=== PATIENT | female | born 1945 | race Caucasian/White ===

== ENCOUNTER 2016-08-22 20:22 | Emergency (ER) | payer MEDICARE, OTHER ==
[~2016-08-22 20:22] MED LIST: ALBUTEROL SULF8.5 GM INH; AMITRIPTYLINE H50 MG PO; AMITRIPTYLINE100 MG PO; ASPIRIN EC81 MG PO; CLINDAMYCIN HC150 MG PO; CRESTOR10 MG PO; FOSAMAX35 MG PO; HYDROCHLOROTH12.5 MG PO; HYDROCHLOROTHIA25 MG PO; HYDROCODON-ACE1 EAC8 PO; KETOPROFEN50 MG PO; LEVOTHYROXINE137 MCG PO; LEVOTHYROXINE150 MCG PO; LIPITOR10 MG GT; LIPITOR10 MG PO; LISINOPRIL-HCT1 EACH PO; METOPROLOL SUCC25 MG PO; PAROXETINE HCL10 MG PO; PAXIL20 MG PO; POTASSIUM CHLO10 MEQ PO; PROVENTIL HFA6.7 GM INH; TERBINAFINE15 GM TOP; VITAMIN D-32000 UNI1 PO; VITAMIN D5000 UNIT PO
== END 2016-08-22 21:00 | disposition left against medical advice (07) ==
LOC: ED 20:22
DX: M25.539 Pain in unspecified wrist (principal); Z53.21 Procedure and treatment not carried out due to patient leaving prior to being seen by health care provider

== ENCOUNTER 2017-04-02 13:39 | Emergency (ER) | payer MEDICARE, OTHER ==
[~2017-04-02] VITALS: Ht 166.4 cm; Wt 68.0 kg
[2017-04-02] MEDS ORDERED: FLONASE ALLERG9.9 ML NAS (14:58)
[2017-04-02] MEDS ORDERED: ULTRAM50 MG PO (14:58)
== END 2017-04-02 15:07 | disposition home or self-care (01) ==
LOC: ED 13:39
DX: J32.9 Chronic sinusitis, unspecified (principal); S00.83XA Contusion of other part of head, initial encounter; S00.03XA Contusion of scalp, initial encounter; I10 Essential (primary) hypertension; E03.9 Hypothyroidism, unspecified; E78.00 Pure hypercholesterolemia, unspecified; E11.9 Type 2 diabetes mellitus without complications; Z87.891 Personal history of nicotine dependence; Z88.0 Allergy status to penicillin; Z88.8 Allergy status to other drugs, medicaments and biological substances; Z79.82 Long term (current) use of aspirin; Z79.899 Other long term (current) drug therapy; W01.10XA Fall on same level from slipping, tripping and stumbling with subsequent striking against unspecified object, initial encounter
CPT/HCPCS: 70450; 99284

== ENCOUNTER 2017-10-17 18:31 | Emergency (ER) | payer MEDICARE, OTHER ==
[~2017-10-17] VITALS: Ht 166.4 cm; Wt 68.0 kg
--- OUTSIDE RECORDS SUMMARY | ~2017-10-17 | XMS | Clinical Summary ---
Demographics + + + | Address | [address] | | | [place] [address] | + + + | Home Phone | | + + + | Preferred Language | Unknown | + + + | Marital Status | | + + + | Buddhism Affiliation | Unknown | + + + | Race | Unknown | + + + | Ethnic Group | Unknown | + + + Author + + + | Author | [facility] | | | and [place] | + + + | Organization | [facility] | | | and [place] | + + + | Address | Unknown | + + + | Phone | Unavailable | + + + Support + + + + + | Name | Relationship | Address | Phone | + + + + + | Tres Devlin | ECON | [address] | | | | | [place], [place] | | | | | [address] | | + + + + + | Kat Garcia | ECON | [address] | | | | | [place], [place] | | | | | [address] | | + + + + + Care Team Providers + +------+ + | Care Nurse Assistant Name | Role | Phone | + +------+ + | Silver Joyce | PP | | | MD | | | + +------+ + Allergies + + + + + + | Active Allergy | Reactions | Severity | Noted | Comments | | | | | Date | | + + + + + + | Bupropion | | | 03/09/19 | | | | | | 18 | | + + + + + + | Metformin | | | 03/09/19 | | | | | | 18 | | + + + + + + | Montelukast | | | 03/09/19 | | | | | | 18 | | + + + + + + | Penicillins | | | 03/09/19 | | | | | | 18 | | + + + + + + | Varenicline | | | 03/09/19 | | | | | | 18 | | + + + + + + Current Medications + + +-------+---------+------+------+-------+ | Prescription | Sig. | Disp. | Refills | Star | End | Statu | | | | | | t | Date | s | | | | | | Date | | | + + +-------+---------+------+------+-------+ | albuterol | Inhale 2 puffs into | | | | | Activ | | (PROVENTIL) 90 | the lungs every 4 | | | | | e | | mcg/puff inhaler (ED | hours as needed for | | | | | | | prepack) | Wheezing. | | | | | | + + +-------+---------+------+------+-------+ | alendronate | Take 35 mg by mouth | | | | | Activ | | (FOSAMAX) 35 mg | every 7 days. | | | | | e | | tablet | | | | | | | + + +-------+---------+------+------+-------+ | amitriptyline | Take 100 mg by mouth | | | | | Activ | | (ELAVIL) 100 MG | nightly. | | | | | e | | tablet | | | | | | | + + +-------+---------+------+------+-------+ | aspirin 81 mg EC | Take 81 mg by mouth | | | | | Activ | | tablet | Daily. | | | | | e | + + +-------+---------+------+------+-------+ | rosuvastatin | Take 10 mg by mouth | | | | | Activ | | (CRESTOR) 10 mg | nightly. | | | | | e | | tablet | | | | | | | + + +-------+---------+------+------+-------+ | glipiZIDE | Take 5 mg by mouth 2 | | | | | Activ | | (GLUCOTROL) 5 mg | times daily (before | | | | | e | | tablet | meals). | | | | | | + + +-------+---------+------+------+-------+ | | Take by mouth. | | | | | Activ | | Hydrocodone-Acetamin | | | | | | e | | ophen 2.5-325 MG | | | | | | | | TABS | | | | | | | + + +-------+---------+------+------+-------+ | ketoconazole | Apply topically | | | | | Activ | | (NIZORAL) 2% cream | Daily. | | | | | e | + + +-------+---------+------+------+-------+ | potassium chloride | Take 10 mEq by mouth | | | | | Activ | | (KLOR-CON) 10 mEq | Daily. | | | | | e | | CR tablet | | | | | | | + + +-------+---------+------+------+-------+ | levothyroxine | Take 137 mcg by | | | | | Activ | | (SYNTHROID) 137 MCG | mouth every morning | | | | | e | | tablet | (before breakfast). | | | | | | + + +-------+---------+------+------+-------+ | | Take 1 tablet by | | | | | Activ | | lisinopril-hydrochlo | mouth Daily. | | | | | e | | rothiazide | | | | | | | | (PRINZIDE,ZESTORETIC | | | | | | | | ) 20-12.5 MG per | | | | | | | | tablet | | | | | | | + + +-------+---------+------+------+-------+ | PARoxetine (PAXIL) | Take 10 mg by mouth | | | | | Activ | | 10 mg tablet | every morning. | | | | | e | + + +-------+---------+------+------+-------+ | metoprolol | Take 25 mg by mouth | | | | | Activ | | succinate (TOPROL | Daily. | | | | | e | | XL) 25 mg 24 hr | | | | | | | | tablet | | | | | | | + + +-------+---------+------+------+-------+ | Cholecalciferol | Take by mouth | | | | | Activ | | (VITAMIN D-3) 5000 | Daily. | | | | | e | | units CAPS | | | | | | | + + +-------+---------+------+------+-------+ Active Problems + + + | Problem | Noted Date | + + + | Hypertension | 03/09/2017 | + + + | Diabetes (HCC) | 03/09/2017 | + + + | Hyperlipidemia | 03/09/2017 | + + + | Hypothyroid | 03/09/2017 | + + + | Asthma | 03/09/2017 | + + + | Osteoporosis | 03/09/2017 | + + + | Vitamin D deficiency | 03/09/2017 | + + + | Hypokalemia | 03/09/2017 | + + + Family History + + +------+ + | Medical History | Relation | Name | Comments | + + +------+ + | Heart attack | Father | | | + + +------+ + + +------+ [...] + +------+ + + Social History + +-------+ +--------+ + | Tobacco Use | Types | Packs/Day | Years | Date | | | | | Used | | + +-------+ +--------+ + | Former Smoker | | | 30 | 1984 - 09/24/2014 | + +-------+ +--------+ + + +---+---+---+ | Smokeless Tobacco: | | | | | Never Used | | | | + +---+---+---+ + + + | Sex Assigned at | Date Recorded | | | | + + + | Not on file | | + + + Last Filed Vital Signs + + + + | Vital Sign | Reading | Time Taken | + + + + | Blood Pressure | 152/78 | 03/11/2017825 PST | + + + + | Pulse | 74 | 03/11/2017825 PST | + + + + | Temperature | - | - | + + + + | Respiratory Rate | 16 | 03/11/2017825 PST | + + + + | Oxygen Saturation | - | - | + + + + | Inhaled Oxygen | - | - | | Concentration | | | + + + + | Weight | 67.6 kg (149 lb) | 03/11/2017825 PST | + + + + | Height | 165.1 cm (5' 5") | 03/11/2017825 PST | + + + + | Body Mass Index | 24.79 | 03/11/2017825 PST | + + + + Plan of Treatment + + + + + | Health Maintenance | Due Date | Last Done | Comments | + + + + + | Hepatitis C | | | | | Screening | 6 | | | + + + + + | Diabetic Eye Exam | | | | | (Bi-Annually) | 4 | | | + + + + + | Diabetic Foot Exam | | | | | | 4 | | | + + + + + | Hemoglobin A1c Q3 | | | | | Months | 4 | | | + + + + + | Vaccine: | | | | | Dtap/Tdap/Td (1 - | 5 | | | | Tdap) | | | | + + + + + | BREAST CANCER | | | | | SCREENING (MAMM Q2 | 6 | | | | YEARS 50-74) | | | | + + + [...] | | | | | (#1) | 8 | | | + + + + + Results Not on filefrom Last 3 Months Insurance + +--------+ +--------+ +---------+ | Payer | Benefi | Subscriber | Type | Phone | Address | | | t Plan | ID | | | | | | / | | | | | | | Group | | | | | + +--------+ +--------+ +---------+ | MEDICARE | MEDICA | [id number] | Medica | [phone] | | | | RE | | re | [phone] | | | | PART A | | | | | | | AND B | | | | | + +--------+ +--------+ +---------+ | | TRICAR | [id number] | Indemn | [phone] | | | | E FOR | | ity | [phone] | | | | LIFE | | | | | + +--------+ +--------+ +---------+ + +--------+ +--------+ + + | Guarantor Name | Accoun | Relation to | Date | Phone | Billing Address | | | t Type | Patient | of | | | | | | | | | | + +--------+ +--------+ + + | CHELSEY DEVLIN | Person | Self [birth year] Home: | [address] | | | al/Fam | | 1946 | [phone] | [place] [address] | | | [place] | | | [phone] | | + +--------+ +--------+ + +
--- OUTSIDE RECORDS SUMMARY | ~2017-10-17 | XMS | Clinical Summary ---
Demographics + + + | Address | [address] | | | [place] [address] | + + + | Home Phone | | + + + | Preferred Language | Unknown | + + + | Marital Status | | + + + | Episcopal Affiliation | Unknown | + + + | Race | Unknown | + + + | Ethnic Group | Unknown | + + + Author + + + | Author | [facility] | + + + | Organization | [facility] | + + + | Address | Unknown | + + + | Phone | Unavailable | + + + Support + + + + + | Name | Relationship | Address | Phone | + + + + + | Detailed,Message | ECON | Unknown | | + + + + + | Tres Devlin | ECON | [address] | | | | | [place] [address] | | + + + + + | Kat Garcia | ECON | Unknown | | + + + + + Care Team Providers + +------+ + | Care Hide Inspector And Sorter Name | Role | Phone | [...] | | Activ | | (VITAMIN D) 2000 | | | | | | e | | UNITS CAPS | | | | | | | + + +-------+---------+------+------+-------+ | potassium chloride | Take 8 mEq by mouth | | | | | Activ | | (LEATHAOR-CON) 8 MEQ CR | daily. | | [...] +------+-------+ + | MEDICARE | MEDICA | [id number] | | | [address] | | | RE | | | | [place] [phone] | | | IP-OP | | | | | + +--------+ +------+-------+ + | - WPS - | TRICAR | [id number] | | | [address] [address] | | | [place] | | | | [place] | | | LIFE | | | | [phone] | + +--------+ +------+-------+ + + +--------+ +--------+ + + | Guarantor Name | Accoun | Relation to | Date | Phone | Billing Address | | | t Type | Patient | of | | | | | | | | | | + +--------+ +--------+ + + | CHELSEY DEVLIN | Person | Self [birth year] | Home: | [address] | | | al/Fam | | 1946 | [phone] | [address] [place] [address] | | | [place] | | | [phone] | [phone] | + +--------+ +--------+ + +
--- OUTSIDE RECORDS SUMMARY | ~2017-10-17 | XMS | Clinical Summary ---
Demographics + + + | Address | [address] | | | [place] [address] | + + + | Home Phone | | + + + | Preferred Language | Unknown | + + + | Marital Status | | + + + | Synagogue Affiliation | Unknown | + + + | Race | Unknown | + + + | Ethnic Group | Unknown | + + + Author + + + | Author | [facility] | | | and [place] | + + + | Organization | [facility] | | [...] [place], [place] | | | | | [address] | | + + + + + | Kat Garcia | ECON | [address] | | | | | [place], [place] | | | | | [address] | | + + + + + Care Team Providers + +------+ + | Care Aerial Gunner Name | Role | Phone | + [...] +--------+ +---------+ | MEDICARE | MEDICA | [id number] | Medica | [phone] | | | | RE | | re | [phone] | | | | PART A | | | | | | | AND B | | | | | + +--------+ +--------+ +---------+ | | TRICAR | [id number] | Indemn | [phone] | | | [...] | | al/Fam | | 1946 | [phone] | [place] [address] | | | [place] | | | [phone] | | + +--------+ +--------+ + +
--- OUTSIDE RECORDS SUMMARY | ~2017-10-17 | XMS | Clinical Summary ---
Demographics + + + | Address | [address] | | | [place] [address] | + + + | Home Phone | | + + + | Preferred Language | Unknown | + + + | Marital Status | | + + + | Congregation Affiliation | Unknown | + + + | Race | Unknown | + + + | Ethnic Group | Unknown | + + + Author + + + | Author | [facility] | + + + | Organization | [facility] | + + + | Address | Unknown | + + + | Phone | Unavailable | + + + Support + + + + + | Name | Relationship | Address | Phone | + + + + + | Detailed,Message | ECON | Unknown | | + + + + + | Tres Devlin | ECON | [address] | | | | | [place] [address] | | + + + + + | Kat Garcia | ECON | Unknown | | + + + + + Care Team Providers + +------+ + | Care Line Tester Name | Role | Phone | + [...] +------+-------+ + | MEDICARE | MEDICA | [id number] | | | [address] | | | RE | | | | [place] [address] | | | IP-OP | | | | | + +--------+ +------+-------+ + | - WPS - | TRICAR | [id number] | | | [address] [address] | | | [place] | | | | [place] | | | LIFE | | | | [phone] | + +--------+ +------+-------+ + + +--------+ [...] | [place] | | | [phone] | [phone] | + +--------+ +--------+ + +
[~2017-10-17 18:31] MED LIST changes: +FLONASE ALLERG9.9 ML NAS; +ULTRAM50 MG PO
[2017-10-17] MEDS ORDERED: TRAMADOL HCL50 MG PO (20:08)
== END 2017-10-17 20:29 | disposition home or self-care (01) ==
LOC: ED 18:31
DX: M25.512 Pain in left shoulder (principal); E03.9 Hypothyroidism, unspecified; J45.909 Unspecified asthma, uncomplicated; I10 Essential (primary) hypertension; E78.00 Pure hypercholesterolemia, unspecified; E11.9 Type 2 diabetes mellitus without complications; Z87.891 Personal history of nicotine dependence; Z88.0 Allergy status to penicillin; Z88.8 Allergy status to other drugs, medicaments and biological substances; Z79.899 Other long term (current) drug therapy; Z79.82 Long term (current) use of aspirin
CPT/HCPCS: 73030; 99283

== ENCOUNTER 2018-08-14 17:59 | Emergency (ER) | payer MEDICARE, OTHER ==
[~2018-08-14] VITALS: Ht 166.4 cm; Wt 67.6 kg
[~2018-08-14 17:59] MED LIST changes: +TRAMADOL HCL50 MG PO
--- OUTSIDE RECORDS SUMMARY | 2018-08-14 18:02 | XMS ---
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 E.D. VISIT COUNT (12 MO.) 2 [facility] TOTAL 2 NOTE: Visits indicate total known visits. ED/UCC VISIT TRACKING (12 MO.) 08/14/2018 18:00 [facility] [place] TYPE: Emergency COMPLAINT: - FALL, HEAD PAIN 10/17/2017 18:31 [facility] [place] TYPE: Emergency COMPLAINT: - L SHOULDER PAIN DIAGNOSES: - Pure hypercholesterolemia, unspecified - Hypothyroidism, unspecified - Other senior living (current) drug therapy - Allergy status to penicillin - Type 2 diabetes mellitus without complications - Personal history of nicotine dependence - Allergy status to other drugs, medicaments and biological substances status - Unspecified asthma, uncomplicated - Pain in left shoulder - Essential (primary) hypertension - senior care (current) use of aspirin INPATIENT VISIT TRACKING (12 MO.) No inpatient visits to display in this time frame [email or web address]
[2018-08-14] MEDS ORDERED: NORCO 5-325 TA1 EACH PO (20:28)
== END 2018-08-14 20:40 | disposition home or self-care (01) ==
LOC: ED 17:59
DX: S00.03XA Contusion of scalp, initial encounter (principal); I10 Essential (primary) hypertension; E11.9 Type 2 diabetes mellitus without complications; Z87.891 Personal history of nicotine dependence; Z90.710 Acquired absence of both cervix and uterus; Z90.49 Acquired absence of other specified parts of digestive tract; Z88.0 Allergy status to penicillin; Z88.8 Allergy status to other drugs, medicaments and biological substances; Z79.82 Long term (current) use of aspirin; Z79.899 Other long term (current) drug therapy; W18.30XA Fall on same level, unspecified, initial encounter
CPT/HCPCS: 70450; 99283-25

== ENCOUNTER 2018-11-25 19:00 | Emergency (ER) | payer MEDICARE, OTHER ==
[~2018-11-25] VITALS: Ht 166.4 cm; Wt 67.6 kg
--- OUTSIDE RECORDS SUMMARY | ~2018-11-25 | XMS | Encounter Summary ---
Demographics + + + | Address | [address] | | | [place] [address] | + + + | Home Phone | | + + + | Preferred Language | Unknown | + + + | Marital Status | | + + + | Druze Affiliation | Unknown | + + + | Race | Unknown | + + + | Ethnic Group | Unknown | + + + Author + + + | Author | [facility] | | | and [place] | + + + | Organization | [facility] | | | and [place] | + + + | Address | Unknown | + + + | Phone | Unavailable | + + + Support + + + + + | Name | Relationship | Address | Phone | + + + + + | Tres Devlin | KEVIN | [address] | | | | | [place], [place] | | | | | [address] | | + + + + + | Kat Garcia | ECON | [address] | | | | | [place], [place] | | | | | [address] | | + + + + + Care Team Providers + +------+ + | Care Revising Clerk Name | Role | Phone | + +------+ + | Jose Zhao MD | PCP | | + +------+ + Reason for Referral Evaluate & Treat (Routine) + + + + + + + | Status | Reason | Specialty | Diagnoses / | Referred By | Referred To | | | | | Procedures | Contact | Contact | + + + + + + + | Authorized | Specialty | Pulmonary | Diagnoses | [place], | [place], | | | Services | Disease / | Chronic | Jose Del Castillo MD | MD Eriberto | | | Required | Pulmonology | obstructive | [address] | [address] | | | | | pulmonary | [address] [place] | [place], | | | | | disease, | [place], [place] | [place] [address] | | | | | unspecified | [address] | Phone: | | | | | COPD type | Phone: | [phone] | | | | | ([facility]) | [phone] | Fax: | | | | | | Fax: | [phone] | | | | | | [phone] | | + + + + + + + Evaluate & Treat (Routine) +--------+ + + + + + | Status | Reason | Specialty | Diagnoses / | Referred By | Referred To | | | | | Procedures | Contact | Contact | +--------+ + + + + + | Closed | Specialty | Orthopedic | Diagnoses | [place], | [place], | | | Services | Surgery | | Jose Del Castillo MD | Denny Leblanc MD | | | Required | | Insufficienc | [address] | [address] | | | | | y of right | [address] [place] | [address] [place] | | | | | rotator cuff | [place], [place] | [place], [place] | | | | | | [address] | [address] Phone: | | | | | | Phone: | [phone] | | | | | | [phone] | Fax: | | | | | | Fax: | [phone] | | | | | | [phone] | | +--------+ + + + + + Reason for Visit + + + | Reason | Comments | + + + | Referral | MRI | + + + Encounter Details +--------+---------+ + + + | Date | Type | Department | Care Team | Description | +--------+---------+ + + + | 10/25/ | Office | [facility] | Jose Zhao, | Type 2 diabetes | | 2019 | Visit | [facility] | [address] | mellitus without | | | | [address] | [place] | complication, | | | | [place], [place] | [address] | without long-term | | | | [address] | | current use of | | | | [phone] | | insulin (HCC) | | | | | | (Primary Dx); | | | | | | Hypertension, | | | | | | unspecified type; | | | | | | Osteoporosis, | | | | | | unspecified | | | | | | osteoporosis type, | | | | | | unspecified | | | | | | pathological | | | | | | fracture presence; | | | | | | Insufficiency of | | | | | | right rotator cuff; | | | | | | Chronic obstructive | | | | | | pulmonary disease, | | | | | | unspecified COPD | | | | | | type (HCC) | +--------+---------+ + + + Social History + +-------+ +--------+ + | Tobacco Use | Types | Packs/Day | Years | Date | | | | | Used | | + +-------+ +--------+ + | Former Smoker | | 3 | 35 | 1984 - 10/04/2012 | + +-------+ +--------+ + + +---+---+---+ | Smokeless Tobacco: | | | | | Never Used | | | | + +---+---+---+ + + +---------+ + | Alcohol Use | Drinks/We | oz/Week | Comments | | | ek | | | + + +---------+ + | Not Currently | | | | + + +---------+ + + + + | Sex Assigned at | Date Recorded | | | | + + + | Not on file | | + + + + + + + | Job Start Date | Occupation | Industry | + + + + | Not on file | Not on file | Not on file | + + + + + + + + | Travel History | Travel Start | Travel End | + + + + + + | No recent travel history available. | + + documented as of this encounter Last Filed Vital Signs + + + + | Vital Sign | Reading | Time Taken | + + + + | Blood Pressure | 122/72 | 10/25/20181148 PDT | + + + + | Pulse | 77 | 10/25/20181148 PDT | + + + + | Temperature | - | - | + + + + | Respiratory Rate | 16 | 10/25/20181148 PDT | + + + + | Oxygen Saturation | 96% | 10/25/20181148 PDT | + + + + | Inhaled Oxygen | - | - | | Concentration | | | + + + + | Weight | 69.1 kg (152 lb 5.4 | 10/25/2018 1149 PDT | | | oz) | | + + + + | Height | 165.1 cm (5' 5") | 10/25/2018 1149 PDT | + + + + | Body Mass Index | 25.35 | 10/25/2018 1149 PDT | + + + + documented in this encounter Progress Notes Jose Zhao MD - 10/25/2018 1130 PDT Subjective: Patient ID: Chelsey Devlin is a 73 y.o. female. HPI Information below has been pulled from previous visit, reviewed and updated as appropriate. Right shoulder pain for the last two years post fall. It hurts raising it to the front a nd side. She has not tried PT for this. She takes tylenol and ibuprofen for this. She would like to try PT but she does not have a car. She went to PT for her shoulder. DM2, she is on medication; There is no PP or P, There is no foot ulcer HTN. There is no complaint of CP, She has had SOB for the last couple years. Her BP has been up lately. She has run out of her toprol Lately. Possible Early COPD with occasional wheezing and SOB over the last year. She quit smoking 5 years ago. She smoked 40 years total. HL, She is on the lipitor. There is No muscle ache or weakness with this. PMH: DM2 HTN HL Asthma Osteoporosis Graves OA, multijoint Depression Actinic Keratosis PSH: Appy Melinda D&C GAETANO-BSO T&A Multiple lumbar Spine surgeries Spinal Stimulator B cataracts Fhx: Mom 58 Graves Disease Dad 90's [place] Shx: Born in [facility] on and off or years. , 3 daughter Retired [employer] Former Smoker, 2 packs a day for 20 years. Quit 2013 No ETOH No drugs Patient's medications, allergies, past medical, surgical, social and family histories were obtained and reviewed as appropriate. ROS Constitutional: no fever, No appetite change, no fatigue. HEENT: Neg ear pain, No nosebleeds,no rhinorrhea,no trouble swallowing and no sinus pressure. Eyes: Neg for pain and no visual disturbance. Respiratory: Neg for cough, no chest tightness, no shortness of breath no wheezing. Cardiovascular: Neg for chest pain, no palpitations and no leg swelling. Gastrointestinal: Neg for nausea,no vomiting,no diarrhea,no constipation no abdominal distention. No Belly pain, no black and no bloody stools, no excessive gas Genitourinary: Negative for urgency, no frequency, no decreased urine volume no difficulty urinating. No Bloody urine Musculoskeletal: Neg for myalgias, no back pain, no joint swelling and No ar thralgias. some joint pain Skin: Neg for color change,no rash and No wounds, no Strange moles Neurological: Neg for dizziness, no Weakness,no light-headedness, no numbness and no headaches. Hematological: Neg for adenopathy. Does not bruise/bleed easily. Psychiatric/Behavioral: Neg for suicidal ideas,no confusion and no agitation. no Depression, no anxiety, no sleep problems Objective: BP 122/72 | Pulse 77 | Resp 16 | Ht 1.651 m (5' 5") | Wt 69.1 kg (152 lb 5.4 oz) | SpO 2 96% | BMI 25.35 kg/m Physical Exam Right shoulder with pos drop and apprehension, and pos pain with moving the humerus across the chest, P Heent, WNL, No carotid bruit Chest CTAB Heart RR&R /s M Abd S,NT,ND,BS+ Ext, no CCor E Neuro Non-focal Lymph, no cervical, axillary, inguinal adenopathy Skin, no gross lesions Assessment: 1. Type 2 diabetes mellitus without complication, without long-term current use of insulin ([facility]) 2. Hypertension, unspecified type metoprolol succinate (TOPROL XL) 25 mg 24 hr tablet 3. Osteoporosis, unspecified osteoporosis type, unspecified pathological fracture presence alendronate (FOSAMAX) 35 mg tablet 4. Insufficiency of right rotator cuff XR Shoulder Right 2 + Vw Ambulatory referral to Orthopedic Surgery MRI Shoulder Right Arthrogram w Contrast FL Shoulder Inj Right for MRI or CT 5. Chronic obstructive pulmonary disease, unspecified COPD type ([facility]) Ambulatory Referral to Pulmonology Plan: She may have mild COPD. We will send her to pulm. I think she has chronic rotator cuf f insuffic. Also likely AC joint spurring. MRI. RTC 3 months Otherwise continue curr ent medical regimen. Labs are overdue. Otherwise continue current medical regimen. documented in this enc ounter Plan of Treatment +--------+ + + + + | Date | Type | Specialty | Care Team | Description | +--------+ + + + + | 12/06/ | Appointment | Radiology | Jose Zhao, | | | 2018 | | | [address] | | | | | | [place] | | | | | | [address] | | | | | | | | | | | | [place] | | +--------+ + + + + | 12/06/ | Appointment | Radiology | Jose Zhao, | | | 2018 | | | [address] | | | | | | [place] | | | | | | [address] | | | | | | | | +--------+ + + + + | 12/07/ | Office | Orthopedic Surgery | Jose Zhao, | | | 2018 | Visit | | [address] | | | | | | [place] | | | | | | [address] | | | | | | | | | | | | Carlos Nguyễn | | | | | | [address] | | | | | | [address] | | | | | | [place] [address] | | | | | | [phone] | | | | | | | | +--------+ + + + + | 02/27/ | Office | Family Medicine | Jose Zhao, | | | 2019 | Visit | | [address] | | | | | | [place] | | | | | | [address] | | | | | | | | +--------+ + + + + + +--------+ + + | Name | Priori | Associated Diagnoses | Order Schedule | | | ty | | | + +--------+ + + | FL Shoulder Inj Right for MRI or | Routin | Insufficiency of | Expected: | | CT | e | right rotator cuff | 10/25/2018, Expires: | | | | | 10/26/2019 | + +--------+ + + + +--------+ + + | Name | Priori | Associated Diagnoses | Order Schedule | | | ty | | | + +--------+ + + | Ambulatory referral to Orthopedic | Routin | Insufficiency of | Ordered: 10/25/2018 | | Surgery | e | right rotator cuff | | + +--------+ + + | Ambulatory Referral to | Routin | Chronic | Ordered: 10/25/2018 | | Pulmonology | e | obstructive | | | | | pulmonary disease, | | | | | unspecified COPD | | | | | type (HCC) | | + +--------+ + + documented as of this encounter Results XR Shoulder Right 2 + Vw (10/25/2018 12:47 PDT) + + | Specimen | + + | | + + + + + | Narrative | Performed At | + + + | CLINICAL INFORMATION: right shoulder pain. COMPARISON: None | [facility] | | available. FINDINGS: 3 views of the right shoulder. Bones: | | | No acute fracture or dislocation. Joints: Mild glenohumeral joint | | | space narrowing with humeral head osteophyte formation. Mild AC | | | joint arthrosis. Soft tissue: A mineralized body is noted adjacent | | | to the posterior superior margin of the glenoid measuring | | | approximately 8 mm. IMPRESSION - Acromioclavicular and | | | glenohumeral degenerative changes. Mineralized body adjacent to | | | the posterior superior margin of the glenoid may represent a chronic | | | labral injury versus intra-articular loose body. Dictated and | | | Signed by: Bryan Hull MD Electronically signed: 10/25/2018 | | | 4:54 PM | | + + + + + | Procedure Note | + + | Tommy, Rad Results In - 10/25/2018 1657 PDT CLINICAL INFORMATION: right shoulder pain. | | | | COMPARISON: None available. | | | | FINDINGS: | | 3 views of the right shoulder. | | | | Bones: No acute fracture or dislocation. | | | | Joints: Mild glenohumeral joint space narrowing with humeral head osteophyte | | formation. Mild AC joint arthrosis. | | | | Soft tissue: A mineralized body is noted adjacent to the posterior superior | | margin of the glenoid measuring approximately 8 mm. | | | | IMPRESSION - | | | | Acromioclavicular and glenohumeral degenerative changes. | | | | Mineralized body adjacent to the posterior superior margin of the glenoid may | | represent a chronic labral injury versus intra-articular loose body. | | | | Dictated and Signed by: Bryan Hull MD | | Electronically signed: 10/25/2018 4:54 PM | + + + +---------+ + + | Performing | Address | City/State/Zipcode | Phone Number | | Organization | | | | + +---------+ + + | [facility] | | | | + +---------+ + + documented in this encounter Visit Diagnoses + + | Diagnosis | + + | Type 2 diabetes mellitus without complication, without long-term current use of | | insulin (HCC) - Primary | + + | Hypertension, unspecified type | + + | Osteoporosis, unspecified osteoporosis type, unspecified pathological fracture | | presence | + + | Insufficiency of right rotator cuff | + + | Chronic obstructive pulmonary disease, unspecified COPD type (HCC) | + + documented in this encounter
--- OUTSIDE RECORDS SUMMARY | ~2018-11-25 | XMS | Encounter Summary ---
Demographics + + + | Address | [address] | | | [place] [address] | + + + | Home Phone | | + + + | Preferred Language | Unknown | + + + | Marital Status | | + + + | Methodist Affiliation | Unknown | + + + | Race | Unknown | + + + | Ethnic Group | Unknown | + + + Author + + + | Author | [facility] | | | and [place] | + + + | Organization | [facility] | | | and [place] | [...] [place], [place] | | | | | [address] | | + + + + + | Kat Garcia | ECON | [address] | | | | | [place], [place] | | | | | [address] | | + + + + + Care Team Providers + +------+ + | Care Geometrician Name | Role | Phone | + +------+ + | Jose Zhao MD | PCP | | + +------+ + Encounter Details +--------+ + + + + | Date | Type | Department | Care Team | Description | +--------+ + + + + | 11/07/ | Hospital | [facility] | Carlos Nguyễn | Right shoulder pain, | | 2019 | Encounter | [facility] | [address] | unspecified | | | | [address] [place] | [facility] | chronicity | | | | [place] | [place] [address] | | | | | [address] | [phone] | | | | | [phone] | | | +--------+ + + + + Social History + +-------+ +--------+ + | Tobacco Use | Types | Packs/Day | Years | Date | | | | | Used | | + +-------+ +--------+ + | Former Smoker | | 3 | 35 | 1967 - 10/04/2012 | + +-------+ +--------+ + [...] + + documented as of this encounter Medications at Time of Discharge + + + +---------+ + + | Medication | Sig | Dispensed | Refills | Start | End Date | | | | | | Date | | + + + +---------+ + + | albuterol | Inhale 2 puffs into | 3 | 3 | 11/02/19 | | | (PROVENTIL HFA) 90 | the lungs every 4 | Inhaler | | 19 | | | mcg/puff | hours as needed for | | | | | | inhalerIndications: | Wheezing or | | | | | | Chronic obstructive | Shortness of Breath. | | | | | | pulmonary disease, | | | | | | | unspecified COPD | | | | | | | type (HCC) | | | | | | + + + +---------+ + + | alendronate | Take 1 tablet by | 90 | 1 | 10/26/19 | | | (FOSAMAX) 35 mg | mouth every 7 days. | tablet | | 19 | | | tabletIndications: | | | | | | | Osteoporosis, | | | | | | | unspecified | | | | | | | osteoporosis type, | | | | | | | unspecified | | | | | | | pathological | | | | | | | fracture presence | | | | | | + + + +---------+ + + | amitriptyline | Daily. | | 0 | | | | (ELAVIL) 100 MG | | | | | | | tablet | | | | | | + + + +---------+ + + | aspirin 81 mg EC | Take 81 mg by mouth | | 0 | | | | tablet | Daily. | | | | | + + + +---------+ + + | atorvaSTATin | Lipitor 10 mg tablet | | 0 | | | | (LIPITOR) 10 mg | Take 1 tablet every | | | | | | tablet | day by oral route. | | | | | + + + +---------+ + + | celecoxib | | | 0 | 05/24/19 | | | (CELEBREX) 100 mg | | | | 19 | | | capsule | | | | | | + + + +---------+ + + | Cholecalciferol | Take by mouth | | 0 | | | | (VITAMIN D-3) 5000 | Daily. | | | | | | units CAPS | | | | | | + + + +---------+ + + | | hydrochlorothiazide | | 0 | | | | hydroCHLOROthiazide | 12.5 mg tablet Take | | | | | | (HYDRODIURIL) 12.5 | 1 tablet every day | | | | | | MG tablet | by oral route. | | | | | + + + +---------+ + + | ketoconazole | Apply topically | | 0 | | | | (NIZORAL) 2% cream | Daily. | | | | | + + + +---------+ + + | levothyroxine | Take 1 tablet by | 90 | 1 | 08/12/19 | | | (SYNTHROID) 137 MCG | mouth every morning | tablet | | 19 | | | tabletIndications: | (before breakfast). | | | | | | Hypothyroidism | | | | | | | (acquired) | | | | | | + + + +---------+ + + | | Take 1 tablet by | | 0 | | | | lisinopril-hydrochlo | mouth Daily. | | | | | | rothiazide | | | | | | | (PRINZIDE,BRETTSTORETIC | | | | | | | ) 20-12.5 MG per | | | | | | | tablet | | | | | | + + + +---------+ + + | metoprolol | Take 1 tablet by | 90 | 1 | 10/26/19 | | | succinate (TOPROL | mouth Daily. | tablet | | 19 | | | XL) 25 mg 24 hr | | | | | | | tabletIndications: | | | | | | | Hypertension, | | | | | | | unspecified type | | | | | | + + + +---------+ + + | oxybutynin | One po qd | 90 | 1 | 08/12/19 | | | (DITROPAN XL) 5 mg | | tablet | | 19 | | | 24 hr | | | | | | | tabletIndications: | | | | | | | Mixed stress and | | | | | | | urge urinary | | | | | | | incontinence | | | | | | + + + +---------+ + + | PARoxetine (PAXIL) | Take 1 tablet by | 90 | 0 | 10/19/19 | | | 10 mg tablet | mouth every morning. | tablet | | 19 | | + + + +---------+ + + | potassium chloride | Take 1 tablet by | 90 | 1 | 08/12/19 | | | (KLOR-CON) 10 mEq | mouth Daily. | tablet | | 19 | | | CR | | | | | | | tabletIndications: | | | | | | | Hypertension, | | | | | | | unspecified type | | | | | | + + + +---------+ + + | rosuvastatin | Take 1 tablet by | 90 | 1 | 08/12/19 | | | (CRESTOR) 10 mg | mouth nightly. | tablet | | 19 | | | tabletIndications: | | | | | | | Hyperlipidemia, | | | | | | | unspecified | | | | | | | hyperlipidemia type | | | | | | + + + +---------+ + + | glipiZIDE | Take 5 mg by mouth 2 | | 0 | | | | (GLUCOTROL) 5 mg | times daily (before | | | | 9 | | tablet | meals). | | | | | + + + +---------+ + + documented as of this encounter Plan of Treatment +--------+ + + + + | Date | Type | Specialty | Care Team | Description | +--------+ + + + + | 12/06/ | Appointment | Radiology | Jose Zhao, | | | 2019 | | | [address] | | | | | | [place] | | | | | | [address] | | | | | | | | | | | | [place] | | +--------+ + + + + | 12/06/ | Appointment | Radiology | Jose Zhao, | | | 2018 | | | [address] | | | | | | [place] | | | | | | [address] | | | | | | | | +--------+ + + + + | 12/07/ | Office | Orthopedic Surgery | Jose Zhao, | | | 2018 | Visit | | [address] | | | | | | [place] | | | | | | [address] | | | | | | | | | | | | Carlos Nguyễn | | | | | | MD [address] | | | | | | [address] | | | | | | [place] [address] | | | | | | [phone] | | | | | | | | +--------+ + + + + | 02/27/ | Office | Family Medicine | Jose Zhao, | | | 2019 | Visit | | [address] | | | | | | [place] | | | | | | [address] | | | | | | | | +--------+ + + + + documented as of this encounter Procedures + +--------+ + + + | Procedure Name | Priori | Date/Time | Associated Diagnosis | Comments | | | ty | | | | + +--------+ + + + | XR SHOULDER RIGHT 1 | Routin | 11/07/2018 | Right shoulder | Results for this | | VW | e | 12:48 PDT | pain, unspecified | procedure are in the | | | | | chronicity | results section. | + +--------+ + + + documented in this encounter Results XR Shoulder Right 1 Vw (11/07/2018 12:48 PDT) + + | Specimen | + + | | + + + + + | Narrative | Performed At | + + + | EXAM:XR SHOULDER RIGHT 1 VW CLINICAL HISTORY: RIGHT SHOULDER | [facility] | | PAIN COMPARISON: 10/25/2018 FINDINGS: Single axillary view of | | | the right shoulder. No anterior or posterior subluxation. There | | | is degenerative change along the margin of the glenoid. The | | | ossification seen adjacent to the margin of the glenoid on the | | | comparison exam is not clearly evident on today's radiograph. | | | IMPRESSION - No significant subluxation. Dictated and Signed | | | by: Roly Hernandez MD Electronically signed: 11/07/2018 1:02 PM | | + + + + + | Procedure Note | + + | Julio Cesar Sanders Results In - 11/07/2018 1305 PDT EXAM:XR SHOULDER RIGHT 1 VW | | | | CLINICAL HISTORY: RIGHT SHOULDER PAIN | | | | COMPARISON: 10/25/2018 | | | | FINDINGS: Single axillary view of the right shoulder. No anterior or posterior | | subluxation. There is degenerative change along the margin of the glenoid. The | | ossification seen adjacent to the margin of the glenoid on the comparison exam | | is not clearly evident on today's radiograph. | | | | IMPRESSION - | | | | No significant subluxation. | | | | Dictated and Signed by: Roly Hernandez MD | | Electronically signed: 11/07/2018 1:02 PM | + + + +---------+ + + | Performing | Address | City/State/Zipcode | Phone Number | | Organization | | | | + +---------+ + + | [facility] | | | | + +---------+ + + documented in this encounter Visit Diagnoses + + | Diagnosis | + + | Right shoulder pain, unspecified chronicity | + + documented in this encounter"
--- OUTSIDE RECORDS SUMMARY | ~2018-11-25 | XMS | Encounter Summary ---
Demographics + + + | Address | [address] | | | [place] [address] | + + + | Home Phone | | + + + | Preferred Language | Unknown | + + + | Marital Status | | + + + | Advent Affiliation | Unknown | + + + | Race | Unknown | + + + | Ethnic Group | Unknown | + + + Author + + + | Author | [facility] | | | and [place] | + + + | Organization | [facility] | | | and [place] | + + + | Address | Unknown | + + + | Phone | Unavailable | + + + Support + + + + + | Name | Relationship | Address | Phone | + + + + + | Tres Devlin | EKVIN | [address] | | | | | [place], [place] | | | | | [address] | | + + + + + | Kat Garcia | ECON | [address] | | | | | [place], [place] | | | | | [address] | | + + + + + Care Team Providers + +------+ + | Care Staff Appraiser Name | Role | Phone | + +------+ + | Jose Zhao MD | PCP | | + +------+ + Encounter Details +--------+ + + + + | Date | Type | Department | Care Team | Description | +--------+ + + + + | 09/08/ | Imaging | [facility] | Provider, | | | 2019 | Exam | [facility] | [address] | | | | | IMAGING | Jason [address]PH | | | | | [phone] | [place] [address] | | +--------+ + + + + [...] | | | 2018 | | | [address] | | | | | | [place] | | | | | | [phone] | | | | | | | | | | | | [place] | | +--------+ + + + + | 12/06/ | Appointment | Radiology | Jose Zhao, | | | 2018 | | | [address] | | | | | | [place] | | | | | | [address] | | | | | | | | +--------+ + + + + | 12/07/ | Office | Orthopedic Surgery | Jose Zhao, | | | 2018 | Visit | | [address] | | | | | | [place] | | | | | | [address] | | | | | | | | | | | | Carlos Nguyễn | | | | | | MD [address] | | | | | | [address] | | | | | | [place] [address] | | | | | | [phone] | | | | | | | | +--------+ + + + + | 02/27/ | Office | Family Medicine | Jose Zhao, | | | 2019 | Visit | | [address] | | | | | | [place] | | | | | | [address] | | | | | | | | +--------+ + + + + documented as of this encounter Procedures + +--------+ + + + | Procedure Name | Priori | Date/Time | Associated Diagnosis | Comments | | | ty | | | | + +--------+ + + + | XR CHEST 2 VIEWS | Routin | 09/08/2018 | | Results for this | | | e | 0:00 PDT | | procedure are in the | | | | | | results section. | + +--------+ + + + documented in this encounter Results XR Chest 2 Vws (09/08/2018 0:00 PDT) + + | Specimen | + + | | + + + + + | Narrative | Performed At | + + + | External films for comparison only | [facility] | | | | | No results will be in the chart. | | + + + + +---------+ + + | Performing | Address | City/State/Zipcode | Phone Number | | Organization | | | | + +---------+ + + | [facility] | | | | + +---------+ + + documented in this encounter Visit Diagnoses Not on filedocumented in this encounter"
--- OUTSIDE RECORDS SUMMARY | ~2018-11-25 | XMS | Encounter Summary ---
Demographics + + + | Address | [address] | | | [place] [address] | + + + | Home Phone | | + + + | Preferred Language | Unknown | + + + | Marital Status | | + + + | Samaritan Affiliation | Unknown | + + + | Race | Unknown | + + + | Ethnic Group | Unknown | + + + Author + + + | Author | [facility] | | | and [place] | + + + | Organization | [facility] | | | and [...] [place], [place] | | | | | [address] | | + + + + + | Kat Garcia | ECON | [address] | | | | | [place], [place] | | | | | [address] | | + + + + + Care Team Providers + +------+ + | Care Hat Braider Name | Role | Phone | + +------+ + | Jose Zhao MD | PCP | | + +------+ + Encounter Details +--------+ + + + + | Date | Type | Department | Care Team | Description | +--------+ + + + + | 10/25/ | Imaging | [facility] [place] [facility] | Jose Zhao, | 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 | | | | [address] [place] | [place], [place] | | | | | [place] [address] | [address] | | | | | [phone] | | | +--------+ + + + [...] | | 2018 | | | [address] | | | | | | [place] | | | | | | [address] | | | | | | | | | | | | [place] | | +--------+ + + + + | 12/06/ | Appointment | Radiology | Jose Zhao, | | | 2018 | | | [address] | | | | | | [place] | | | | | | [address] | | | | | | | | +--------+ + + + + | 12/07/ | Office | Orthopedic Surgery | Jose Zhao, | | | 2018 | Visit | | [address] | | | | | | [place] | | | | | | [address] | | | | | | | | | | | | Carlos Nguyễn | | | | | | MD [address] | | | | | | [place] | | | | | | [place] [address] | | | | | | [phone] | | | | | | | | +--------+ + + + + | 02/27/ | Office | Family Medicine | Jose Zhao, | | | 2019 | Visit | | [address] | | | | | | [place] | | | | | | [address] | | | | | | | | +--------+ + + + + documented as of this encounter Procedures + +--------+ + + + | Procedure Name | Priori | Date/Time | Associated Diagnosis | Comments | | | ty | | | | + +--------+ + + + | XR SHOULDER RIGHT 2 | Routin | 10/25/2018 | Insufficiency of | Results for this | | + VW | e | 12:47 PDT | right rotator cuff | procedure are in the | | | | | | results section. | + +--------+ + + + documented in this encounter Results XR Shoulder Right 2 [...] + | Diagnosis | + + | Insufficiency of right rotator cuff | + + documented in this encounter"
--- OUTSIDE RECORDS SUMMARY | ~2018-11-25 | XMS | Encounter Summary ---
Demographics + + + | Address | [address] | | | [place] [address] | + + + | Home Phone | | + + + | Preferred Language | Unknown | + + + | Marital Status | | + + + | Episcopal Affiliation | Unknown | + + + | Race | Unknown | + + + | Ethnic Group | Unknown | + + + Author + + + | Author | [facility] | | | and [place] | + + + | Organization | [facility] | | | and [place] [...] [place], [place] | | | | | [address] | | + + + + + | Kat Garcia | ECON | [address] | | | | | [place], [place] | | | | | [address] | | + + + + + Care Team Providers + +------+ + | Care Pharmaceutical Engineer Name | Role | Phone | + +------+ + | Jose Zhao MD | PCP | | + +------+ + Encounter Details +--------+ + + + + | Date | Type | Department | Care Team | Description | +--------+ + + + + | 11/16/ | Hospital | [facility] | Eriberto Milner, | Chronic obstructive | | 2019 | Encounter | [facility] | MD [address] | pulmonary disease, | | | | [address] | [place], [place] | unspecified COPD | | | | [place], | [address] | type (HCC) | | | | [place] [address] | | | | | | [phone] | | | +--------+ + + + [...] | | | | | | | (PRINZIDE,ZESTORETIC | | | | | | | [...] [place] | | | | | | [address] | | | | | | | | | | | | [place] | | +--------+ + + + + | 12/06/ | Appointment | Radiology | Jose Zhao, | | | 2018 | | | [address] | | | | | | [place] | | | | | | [address] | | | | | | | | +--------+ + + + + | 12/07/ | Office | Orthopedic Surgery | Jose Zhao, | | | 2018 | Visit | | [address] | | | | | | [place] | | | | | | [address] | | | | | | | | | | | | Carlos Nguyễn | | | | | | MD [address] | | | | | | [place] | | | | | | [place] [address] | | | | | | [phone] | | | | | | | | +--------+ + + + + | 02/27/ | Office | Family Medicine | Jose Zhao, | | | 2019 | Visit | | [address] | | | | | | [place] | | | | | | [address] | | | | | | | | +--------+ + + + + documented as of this encounter Procedures + +--------+ + + + | Procedure Name | Priori | Date/Time | Associated Diagnosis | Comments | | | ty | | | | + +--------+ + + + | PFT PULMONARY | YESSICA | 11/16/2018 | Chronic | Results for this | | FUNCTION TESTING | | 12:01 PDT | obstructive | procedure are in the | | ORDERS | | | pulmonary disease, | results section. | | | | | unspecified COPD | | | | | | type (HCC) | | + +--------+ + + + documented in this encounter Results Pulmonary function test full PFT; home oxygen evaluation (11/16/2018 12:01 PDT) + + + | Narrative | Performed At | + + + | Eriberto | | | MD Alf 11/16/2018 12:02 PULMONARY FUNCTION TESTING | | | SPIROMETRY: The FVC was 2.55 L or 87 % of predicted. The FEV1 was 1.93 | | | L or 87 % of predicted. FEV1/FVC ratio was 76 %. LUNG VOLUMES: The | | | total lung capacity was 4.93 L or 95 % of predicted. The residual | | | volume was 2.11 L or 92 % of predicted. RV/TLC ratio was 96 % of | | | predicted. DIFFUSION CAPACITY: The diffusion capacity was 14.0 | | | mL/mmHg per minute or 60 % of predicted. IMPRESSION: Spirometry is | | | consistent with normal physiology. Lung volume testing is consistent | | | with normal physiology. Diffusion capacity is mildly reduced and is | | | corrected for measured hemoglobin. No prior pulmonary function tests | | | available for comparison. Test performed: 11/16/2018Electronically | | | signed by: Eriberto Milner MD, 11/16/2018 12:01[facility] | | | [facility] | | | | | |IMPRESSION: Spirometry is consistent with normal physiology. Lung | | |volume testing is consistent with normal physiology. Diffusion | | |capacity is mildly reduced and is corrected for measured | | |hemoglobin. | | | | | |No prior pulmonary function tests available for comparison. | | | | | |Test performed: 11/16/2018 | | |Electronically signed by: Eriberto Milner MD, MD 11/16/2018 | | |12:01 | | |[facility] | | + + + documented in this encounter Visit Diagnoses + + | Diagnosis | + + | Chronic obstructive pulmonary disease, unspecified COPD type (HCC) | + + documented in this encounter"
--- OUTSIDE RECORDS SUMMARY | ~2018-11-25 | XMS | Encounter Summary ---
Demographics + + + | Address | [address] | | | [place] [address] | + + + | Home Phone | | + + + | Preferred Language | Unknown | + + + | Marital Status | | + + + | Jehovah'S Witness Affiliation | Unknown | + + + | Race | Unknown | + + + | Ethnic Group | Unknown | + + + Author + + + | Author | [facility] | | | and [place] | + + + | Organization | [facility] | | | and [place] [...] [place], [place] | | | | | [address] | | + + + + + | Kat Garcia | ECON | [address] | | | | | [place], [place] | | | | | [address] | | + + + + + Care Team Providers + +------+ + | Care Cook Dinner Name | Role | Phone | + [...] | disease, | [place], [place] | [place] [address] | | | | | unspecified | [address] | Phone: | | | | | COPD type | Phone: | [phone] | | | | | ([facility]) | [phone] | Fax: | | | | | | Fax: | [phone] | | | | | | [phone] | | + + + + + [...] [place] | | | | | | [address] | [address] Phone: | | | | | | Phone: | [phone] | | | | | | [phone] | Fax: | | | | | | Fax: | [phone] | | | | | | [phone] | | +--------+ + + + + + Reason for Visit + + + | Reason | Comments | + + + | Referral | MRI | + + + Encounter Details +--------+---------+ + + + | Date | Type | Department | Care Team | Description | +--------+---------+ + + + | 10/25/ | Office | [facility] | Jose Zhao, | Type 2 diabetes | | 2019 | Visit | [facility] | [address] | mellitus without | | | | [address] | [place] | complication, | | | | [place], [place] | [address] | without long-term | | | | [address] | | current use of | | | | [phone] | | insulin (HCC) | | | [...] Fhx: Mom 58 Graves Disease Dad 90's [place] Shx: Born in [facility] on and off or years. , 3 [...] complication, without long-term current use of insulin ([facility]) 2. Hypertension, unspecified type metoprolol succinate (TOPROL [...] Chronic obstructive pulmonary disease, unspecified COPD type ([facility]) Ambulatory Referral to Pulmonology Plan: She may [...] [place] | | | | | | [address] | | | | | | | | | | | | [place] | | +--------+ + + + + | 12/06/ | Appointment | Radiology | Jose Zhao, | | | 2018 | | | [address] | | | | | | [place] | | | | | | [address] | | | | | | | | +--------+ + + + + | 12/07/ | Office | Orthopedic Surgery | Jose Zhao, | | | 2018 | Visit | | [address] | | | | | | [place] | | | | | | [address] | | | | | | | | | | | | Carlos Nguyễn | | | | | | MD [address] | | | | | | [place] | | | | | | [place] [address] | | | | | | [phone] | | | | | | | | +--------+ + + + + | 02/27/ | Office | Family Medicine | Jose Zhao, | | | 2019 | Visit | | [address] | | | | | | [place] | | | | | | [address] | | | | | | | [...]
--- OUTSIDE RECORDS SUMMARY | ~2018-11-25 | XMS | Clinical Summary ---
Demographics + + + | Address | [address] | | | [place] [address] | + + + | Home Phone | | + + + | Preferred Language | Unknown | + + + | Marital Status | | + + + | Restorationism Affiliation | Unknown | + + + | Race | Unknown | + + + | Ethnic Group | Unknown | + + + Author + + + | Author | [facility] | | | and [place] | + + + | Organization | [facility] | | | and [place] [...] [place], [place] | | | | | [address] | | + + + + + | Kat Garcia | ECON | [address] | | | | | [place], [place] | | | | | [address] | | + + + + + Care Team Providers + +------+ + | Care Pressure Welder Name | Role | Phone | + +------+ + | Jose Zhao MD | PCP | | + +------+ + Allergies + + + + + + | Active Allergy | Reactions | Severity | Noted | Comments | | | | | Date | | + + + + + + | Bupropion | Other (See Comments) | Medium | 07/19/19 | Thyroid storm | | | | | 12 | | + + + + + + | Metformin | Other (See Comments) | Medium | 03/09/19 | Thyroid storm | | | | | 18 | | + + + + + + | Penicillins | Other (See Comments) | Medium | 07/19/19 | Unknown - was 5 | | | | | 12 | years old | + + + + + + | Montelukast | Nausea And Vomiting | Medium | 03/09/19 | | | | | | 18 | | + + + + + + | Varenicline | Nausea And Vomiting | Medium | 07/19/19 | | | | | | 12 | | + + + + + + Medications + + + +---------+------+------+-------+ | Medication | Sig | Dispensed | Refills | Star | End | Statu | | | | | | t | Date | s | | | | | | Date | | | + + + +---------+------+------+-------+ | aspirin 81 mg EC | Take 81 mg by mouth | | 0 | | | Activ | | tablet | Daily. | | | | | e | + + + +---------+------+------+-------+ | ketoconazole | Apply topically | | 0 | | | Activ | | (NIZORAL) 2% cream | Daily. | | | | | e | + + + +---------+------+------+-------+ | | Take 1 tablet by | | 0 | | | Activ | | lisinopril-hydrochlo | mouth Daily. | | | | | e | | rothiazide | | | | | | | | (PRINZIDE,ZESTORETIC | | | | | | | | ) 20-12.5 MG per | | | | | | | | tablet | | | | | | | + + + +---------+------+------+-------+ | Cholecalciferol | Take by mouth | | 0 | | | Activ | | (VITAMIN D-3) 5000 | Daily. | | | | | e | | units CAPS | | | | | | | + + + +---------+------+------+-------+ | atorvaSTATin | Lipitor 10 mg tablet | | 0 | | | Activ | | (LIPITOR) 10 mg | Take 1 tablet every | | | | | e | | tablet | day by oral route. | | | | | | + + + +---------+------+------+-------+ | celecoxib | | | 0 | 04/0 | | Activ | | (CELEBREX) 100 mg | | | | 1/20 | | e | | capsule | | | | 19 | | | + + + +---------+------+------+-------+ | | hydrochlorothiazide | | 0 | | | Activ | | hydroCHLOROthiazide | 12.5 mg tablet Take | | | | | e | | (HYDRODIURIL) 12.5 | 1 tablet every day | | | | | | | MG tablet | by oral route. | | | | | | + + + +---------+------+------+-------+ | levothyroxine | Take 1 tablet by | 90 | 1 | 06/2 | | Activ | | (SYNTHROID) 137 MCG | mouth every morning | tablet | | 0/20 | | e | | tabletIndications: | (before breakfast). | | | 19 | | | | Hypothyroidism | | | | | | | | (acquired) | | | | | | | + + + +---------+------+------+-------+ | oxybutynin | One po qd | 90 | 1 | 06/2 | | Activ | | (DITROPAN XL) 5 mg | | tablet | | 0/20 | | e | | 24 hr | | | | 19 | | | | tabletIndications: | | | | | | | | Mixed stress and | | | | | | | | urge urinary | | | | | | | | incontinence | | | | | | | + + + +---------+------+------+-------+ | potassium chloride | Take 1 tablet by | 90 | 1 | 06/2 | | Activ | | (KLOR-CON) 10 mEq | mouth Daily. | tablet | | 0/20 | | e | | CR | | | | 19 | | | | tabletIndications: | | | | | | | | Hypertension, | | | | | | | | unspecified type | | | | | | | + + + +---------+------+------+-------+ | rosuvastatin | Take 1 tablet by | 90 | 1 | 06/2 | | Activ | | (CRESTOR) 10 mg | mouth nightly. | tablet | | 0/20 | | e | | tabletIndications: | | | | 19 | | | | Hyperlipidemia, | | | | | | | | unspecified | | | | | | | | hyperlipidemia type | | | | | | | + + + +---------+------+------+-------+ | PARoxetine (PAXIL) | Take 1 tablet by | 90 | 0 | 08/2 | | Activ | | 10 mg tablet | mouth every morning. | tablet | | 7/20 | | e | | | | | | 19 | | | + + + +---------+------+------+-------+ | amitriptyline | Daily. | | 0 | | | Activ | | (ELAVIL) 100 MG | | | | | | e | | tablet | | | | | | | + + + +---------+------+------+-------+ | metoprolol | Take 1 tablet by | 90 | 1 | 09/0 | | Activ | | succinate (TOPROL | mouth Daily. | tablet | | 3/20 | | e | | XL) 25 mg 24 hr | | | | 19 | | | | tabletIndications: | | | | | | | | Hypertension, | | | | | | | | unspecified type | | | | | | | + + + +---------+------+------+-------+ | alendronate | Take 1 tablet by | 90 | 1 | 09/0 | | Activ | | (FOSAMAX) 35 mg | mouth every 7 days. | tablet | | 3/20 | | e | | tabletIndications: | | | | 19 | | | | Osteoporosis, | | | | | | | | unspecified | | | | | | | | osteoporosis type, | | | | | | | | unspecified | | | | | | | | pathological | | | | | | | | fracture presence | | | | | | | + + + +---------+------+------+-------+ | albuterol | Inhale 2 puffs into | 3 | 3 | 09/1 | | Activ | | (PROVENTIL HFA) 90 | the lungs every 4 | Inhaler | | 0/20 | | e | | mcg/puff | hours as needed for | | | 19 | | | | inhalerIndications: | Wheezing or | | | | | | | Chronic obstructive | Shortness of Breath. | | | | | | | pulmonary disease, | | | | | | | | unspecified COPD | | | | | | | | type (HCC) | | | | | | | + + + +---------+------+------+-------+ | glipiZIDE | Take by mouth 2 | 180 | 1 | 09/3 | | Activ | | (GLUCOTROL) 10 MG | times daily (before | tablet | | 0/20 | | e | | tablet | meals). | | | 19 | | | + + + +---------+------+------+-------+ | albuterol | Inhale 2 puffs into | | 0 | | 09/1 | Disco | | (PROVENTIL) 90 | the lungs every 4 | | | | 0/20 | ntinu | | mcg/puff inhaler (ED | hours as needed for | | | | 19 | ed | | prepack) | Wheezing. | | | | | | + + + +---------+------+------+-------+ | glipiZIDE | Take 5 mg by mouth 2 | | 0 | | 09/3 | Disco | | (GLUCOTROL) 5 mg | times daily (before | | | | 0/20 | ntinu | | tablet | meals). | | | | 19 | ed | + + + +---------+------+------+-------+ | | Take by mouth. | | 0 | | 09/1 | Disco | | Hydrocodone-Acetamin | | | | | 0/20 | ntinu | | ophen 2.5-325 MG | | | | | 19 | ed | | TABS | | | | | | | + + + +---------+------+------+-------+ + + +-------+ +------+------+-------+ | Hospital, Clinic, or | Ordered | Route | Frequency | Star | End | Statu | | Other Facility | Dose | | | t | Date | s | | Administered | | | | Date | | | | Medication | | | | | | | + + +-------+ +------+------+-------+ | triamcinolone | 40 mg | IX | ONCE | 10/23 | 10/23 | Ended | | acetonide | | | | 08/11 | 08/11 | | | (KENALOG-40) 40 | | | | 19 | 19 | | | mg/mL injection 40 | | | | | | | | mgIndications: | | | | | | | | Primary | | | | | | | | osteoarthritis of | | | | | | | | right shoulder, | | | | | | | | Impingement syndrome | | | | | | | | of right shoulder | | | | | | | + + +-------+ +------+------+-------+ Active Problems + + + | Problem | Noted Date | + + + | Primary osteoarthritis of right shoulder | 11/07/2018 | + + + | Impingement syndrome of right shoulder | 11/07/2018 | + + + | Ischemic colitis | 11/01/2018 | + + + | Tinea pedis | 11/01/2018 | + + + | COPD (chronic obstructive pulmonary disease) | 11/01/2018 | + + + | Hypertension | 03/09/2017 | + + + | Diabetes | 03/09/2017 | + + + | Hyperlipidemia | 03/09/2017 | + + + | Hypothyroid | 03/09/2017 | + + + | Asthma | 03/09/2017 | + + + | Osteoporosis | 03/09/2017 | + + + | Vitamin D deficiency | 03/09/2017 | + + + | Hypokalemia | 03/09/2017 | + + + | Lumbar postlaminectomy syndrome | 06/07/2013 | + + + + + | Overview: Last Assessment & Plan: | | Please see discussion under chronic postoperative pain. | + + + + + | Other chronic postoperative pain | 06/07/2013 | + + + + + | Overview: Last Assessment & Plan: This patient has chronic | | postoperative pain from post laminectomy syndrome. She has | | previously undergone multiple lumbar back surgeries. She | | developed chronic intractable pain. Ultimately this was | | unresponsive to other treatments and March 2010 the patient | | underwent implantation of a dorsal column spinal cord stimulator. | | This has provided significant relief of her pain. | | Unfortunately the patient fell couple months ago very hard on the | | place where her pulse generator was implanted. Since that time | | she has had some intermittent shocks extending from above her | | stimulator across her back. She also felt like she had decreased | | effectiveness of the stimulator. Yesterday the patient's | | stimulator was reprogrammed. This significantly improved the | | coverage of her painful areas. Because of concern that there may | | have been a shifting of he believes or the pulse generator the | | patient was taken to the procedure room and fluoroscopy was | | utilized to examine her leads and the pulse generator. These | | appear to be in good position believes is still are in place they | | were in after her implantation with the tops of the leads at the | | top of the T8 vertebra. They have not shifted laterally. The | | pulse generator does not have any obvious damage. The leads are | | still well seated in the pulse generator. Impedance tests | | yesterday were all within normal limits. Everything appears to be | | working normally.On careful questioning the patient today | | relates that she gets these shocking sensations whether the | | stimulator is turned on or off and therefore it does not seem to | | be related to the spinal cord stimulator. At this time as she is | | getting good coverage of her painful areas and her shocking | | sensations seem to be unrelated to the spinal cord stimulator and | | these shocking sensations occur only about twice per day and are | | fleeting, I do not feel any specific therapy is indicated. The | | patient is reassured and is in agreement with continuing to use | | her stimulator. If anything changes significantly she will | | contact our office for followup and reevaluation. | + + Encounters +--------+ + + + + | Date | Type | Specialty | Care Team | Description | +--------+ + + + + | 11/23/ | Orders Only | Pulmonology | Eriberto Milner, | Personal history of | | 2018 | | | MD | nicotine dependence | | | | | | (Primary Dx); | | | | | | Tobacco use; | | | | | | Encounter for | | | | | | screening for lung | | | | | | cancer | +--------+ + + + + | 11/21/ | Office | Family Medicine | Jose Zhao, | Insufficiency of | | 2018 | Visit | | MD | right rotator cuff | | | | | | (Primary Dx); Type 2 | | | | | | diabetes mellitus | | | | | | without | | | | | | complication, | | | | | | without long-term | | | | | | current use of | | | | | | insulin (HCC) | +--------+ + + + + | 11/17/ | Telephone | Family Medicine | Jose Zhao, | Imaging Only | | 2018 | | | MD | | +--------+ + + + + | 11/16/ | Office | Pulmonology | Eriberto Milner, | Chronic obstructive | | 2018 | Visit | | MD | pulmonary disease, | | | | | | unspecified COPD | | | | | | type (HCC) (Primary | | | | | | Dx); Need for | | | | | | prophylactic | | | | | | vaccination against | | | | | | Streptococcus | | | | | | pneumoniae | | | | | | (pneumococcus); Need | | | | | | for immunization | | | | | | against influenza; | | | | | | Encounter for | | | | | | screening for lung | | | | | | cancer; Tobacco use; | | | | | | Personal history of | | | | | | nicotine dependence | +--------+ + + + + | 11/16/ | Hospital | Pulmonology | Eriberto Milner, | Chronic obstructive | | 2018 | Encounter | | MD | pulmonary disease, | | | | | | unspecified COPD | | | | | | type (HCC) | +--------+ + + + + | 11/14/ | Telephone | Family Medicine | Jose Zhao, | Results | | 2018 | | | | | +--------+ + + + + | 11/07/ | Hospital | Radiology | Carlos Nguyễn | Right shoulder pain, | | 2018 | Encounter | | MD Rafiq | unspecified | | | | | | chronicity | +--------+ + + + + | 11/07/ | Office | Orthopedic Surgery | oJse Zhao, | Primary | | 2018 | Visit | | Carlos Muniz | osteoarthritis of | | | | | MD Rafiq | right shoulder | | | | | | (Primary Dx); | | | | | | Impingement syndrome | | | | | | of right shoulder | +--------+ + + + + | 11/01/ | Office | Pulmonology | Eriberto Milner, | Chronic obstructive | | 2018 | Visit | | MD | pulmonary disease, | | | | | | unspecified COPD | | | | | | type (HCC) | +--------+ + + + + | 10/31/ | Telephone | Family Medicine | Jose Zhao, | Referral (Follow up) | | 2018 | | | MD | | +--------+ + + + + | 10/25/ | Imaging | Radiology | Jose Zhao, | Chronic cough | | 2018 | Exam | | MD | | +--------+ + + + + | 10/25/ | Imaging | Radiology | Jose Zhao, | Insufficiency of | | 2018 | Exam | | MD | right rotator cuff | +--------+ + + + + | 10/25/ | Office | Family Medicine | Jose Zhao, | Type 2 diabetes | | 2019 | Visit | | MD | mellitus without | | | | | | complication, | | | | | | without long-term | | | | | | current use of | | | | | | insulin (HCC) | | | [...] | | | | type (HCC) | +--------+ + + + + | 10/13/ | Telephone | Family Medicine | Jose Zhao, | Referral | | 2018 | | | MD | | +--------+ + + + + | 10/13/ | Refill | Family Medicine | Jose Zhao, | Medication Refill | | 2018 | | | MD | | +--------+ + + + + | 10/06/ | Telephone | Family Medicine | Jose Zhao, | Shoulder Pain | | 2018 | | | MD | | +--------+ + + + + | 09/08/ | Imaging | Radiology | Provider, | | | 2018 | Exam | | MD Denisha | | +--------+ + + + + | 08/29/ | Telephone | Family Medicine | Jose Zhao, | Transfer Orders | | 2018 | | | MD | | +--------+ + + + + from Last 3 Months Immunizations + + + + | Name | Dates Previously Given | Next Due | + + + + | INFLUENZA 65 Y OR >, | 11/16/2018, 12/09/2016 | | | TRIVALENT HIGH-DOSE | | | + + + + | PNEUMOCOCCAL | 11/16/2018 | | | CONJUGATE 13-VALENT | | | | (PCV13) | | | + + + + | ZOSTER, 1 DOSE | 07/27/2013 | | | (ZOSTAVAX) | | | + + + + Family History + + +------+ + | Medical History | Relation | Name | Comments | + + +------+ + | Arthritis | Brother | | | + + +------+ + | Cancer | Brother | | oral | + + +------+ + | Substance abuse | Brother | | | + + +------+ + | * | Brother | | sudden | + + +------+ + | Stroke | Brother | | | + + +------+ + | Asthma | Daughter | | | + + +------+ + | Depression | Daughter | | | + + +------+ + | Miscarriages / | Daughter | | | | stillbirths | | | | + + +------+ + | Stroke | Daughter | | | + + +------+ + | Heart attack | Father | | | + + +------+ + | Arthritis | Mother | | | + + +------+ + | Early | Mother | | | + + +------+ + | High blood pressure | Mother | | | + + +------+ + | Thyroid disease | Mother | | Graves disease | + + +------+ + | Arthritis | Sister | | | + + +------+ + | Depression | Sister | | | + + +------+ + | High blood pressure | Sister | | | + + +------+ + | Other (see comment) | Sister | | CVA | + + +------+ + + +------+ + + | Relation | Name | Status | Comments | + +------+ + + | Brother | | | | + +------+ + + | Brother | | | | + +------+ + + | Brother | | Alive | | + +------+ + + | Daughter | | Alive | | + +------+ + + | Father | | | | + +------+ + + | Maternal Grandfather | | | | + +------+ + + | Maternal Grandmother | | | | + +------+ + + | Mother | | | | + +------+ + + | Paternal Grandfather | | | | + +------+ + + | Paternal Grandmother | | | | + +------+ + + | Sister | | | | + +------+ + + | Son | | | | + +------+ + + Social History + + + +--------+ + | Tobacco Use | Types | Packs/Day | Years | Date | | | | | Used | | + + + +--------+ + | Former Smoker | Cigarettes | 3 | 35 | 1967 - 10/04/2012 | + + + +--------+ + + +---+---+---+ | Smokeless Tobacco: [...] recent travel history available. | + + Last Filed Vital Signs + + + + | Vital Sign | Reading | Time Taken | + + + + | Blood Pressure | 152/70 | 11/21/20181239 PDT | + + + + | Pulse | 61 | 11/21/20181239 PDT | + + + + | Temperature | 36.6 C (97.9 F) | 11/21/20181239 PDT | + + + + | Respiratory Rate | 16 | 11/21/20181239 PDT | + + + + | Oxygen Saturation | 95% | 11/21/20181239 PDT | + + + + | Inhaled Oxygen | - | - | | Concentration | | | + + + + | Weight | 68.4 kg (150 lb 12.7 | 11/21/2018 1240 PDT | | | oz) | | + + + + | Height | 165.1 cm (5' 5") | 11/16/2018 1124 PDT | + + + + | Body Mass Index | 25.09 | 11/16/2018 1124 PDT | + + + + Plan of Treatment +--------+ + + + + | Date | Type | Specialty | Care Team | Description | +--------+ + + + + | 12/06/ | Appointment | Radiology | Jose Zhao, | | | 2018 | | | [address] | | | | | | [place], [place] | | | | | | [address] | | | | | | | | | | | | Rad, [facility] | | +--------+ + + + + | 12/06/ | Appointment | Radiology | Jose Zhao, | | | 2018 | | | [address] | | | | | | [place], [place] | | | | | | [address] | | | | | | | | +--------+ + + + + | 12/07/ | Office | Orthopedic Surgery | Jose Zhao, | | | 2018 | Visit | | [address] | | | | | | [place] | | | | | | [address] | | | | | | | | | | | | Carlos Nguyễn | | | | | | MD [address]iq [address] | | | | | | [address] | | | | | | [place] [id number] | | | | | | [phone] | | | | | | | | +--------+ + + + + | 02/27/ | Office | Family Medicine | Jose Zhao, | | | 2019 | Visit | | [address] | | | | | | [place] | | | | | | [address] | | | | | | | | +--------+ + + + + + + + + + | Health Maintenance | Due Date | Last Done | Comments | + + + + + | Hepatitis C | | | | | Screening | 6 | | | + + + + + | Diabetic Eye Exam | | | | | | 4 | | | + + + + + | Diabetic Foot Exam | | | | | | 4 | | | + + + + + | Vaccine: | | | | | Dtap/Tdap/Td (1 - | 5 | | | | Tdap) | | | | + + + + + | Colorectal Cancer | | | | | Screening | 6 | | | | (Colonoscopy) | | | | + + + + + | Lung Cancer | | | | | Screening | 1 | | | + + + + + | Vaccine: Zoster (2 | | 07/27/2013 | | | of 3) | 4 | | | + + + + + | Adult Annual | | | | | Wellness Visit | 8 | | | + + + + + | Statin Therapy | | | | | (optimal intensity) | 8 | | | + + + + + | Breast Cancer | | 12/04/2016, 06/20/2012, | | | Screening | 9 | 02/24/2005 | | + + + + + | Hemoglobin A1c | | 11/07/2018 | | | Screening | 9 | | | + + + + + | Vaccine: | | 11/16/2018 | | | Pneumococcal 65+ | 0 | | | | Low/Medium Risk (2 | | | | | of 2 - PPSV23) | | | | + + + + + | Vaccine: Influenza | Completed | 11/16/2018, 12/09/2016 | | + + + + + Procedures + +--------+ + + + | [...] section. | + +--------+ + + + | HEMOGLOBIN A1C | Routin | 11/07/2018 | Type 2 diabetes | Results for this | | | e | 10:22 PDT | mellitus without | procedure are in the | | | | | complication, | results section. | | | | | without long-term | | | | | | current use of | | | | | | insulin (HCC) | | + +--------+ + + + | TSH | Routin | 11/07/2018 | Hypothyroidism | Results for this | | | e | 10:22 PDT | (acquired) | procedure are in the | | | | | | results section. | + +--------+ + + + | URINALYSIS WITH | Routin | 11/07/2018 | Hypertension, | Results for this | | MICROSCOPIC IF | e | 10:22 PDT | unspecified type | procedure are in the | | INDICATED | | | | results section. | + +--------+ + + + | LIPID PANEL | Routin | 11/07/2018 | Hyperlipidemia, | Results for this | | | e | 10:22 PDT | unspecified | procedure are in the | | | | | hyperlipidemia type | results section. | + +--------+ + + + | COMPREHENSIVE | Routin | 11/07/2018 | Hypertension, | Results for this | | METABOLIC PANEL | e | 10:22 PDT | unspecified type | procedure are in the | | | | | | results section. | + +--------+ + + + | CBC WITH | Routin | 11/07/2018 | Hypertension, | Results for this | | DIFFERENTIAL | e | 10:22 PDT | unspecified type | procedure are in the | | | | | | results section. | + +--------+ + + + | XR CHEST PA AND | Routin | 10/25/2018 | Chronic cough | Results for this | | LATERAL | e | 12:47 PDT | | procedure are in the | | | | | | results section. | + +--------+ + + + | XR SHOULDER RIGHT 2 | Routin | 10/25/2018 | Insufficiency of | Results for this | | + VW | e | 12:47 PDT | right rotator cuff | procedure are in the | | | | | | results section. | + +--------+ + + + | LABS - EXTERNAL SCAN | | 09/08/2018 | | Results for this | | | | 0:00 PDT | | procedure are in the | | | | | | results section. | + +--------+ + + + | XR CHEST 2 VIEWS | Routin | 09/08/2018 | | Results for this | | | e | 0:00 PDT | | procedure are in the | | | | | | results section. | + +--------+ + + + | IMAGING REPORT - | | 09/08/2018 | | Results for this | | EXTERNAL SCAN | | 0:00 PDT | | procedure are in the | | | | | | results section. | + +--------+ + + + | IMAGING REPORT - | | 09/08/2018 | | Results for this | | EXTERNAL SCAN | | 0:00 PDT | | procedure are in the | | | | | | results section. | + +--------+ + + + from Last 3 Months Results Pulmonary function test full PFT; home [...] | signed by: Eriberto Milner MD, 11/16/2018 12:01[facility] | | [facility] | | | | | |IMPRESSION: Spirometry [...] MD 11/16/2018 | | |12:01 | | |[facility] | | + + + XR Shoulder Right 1 Vw (11/07/2018 12:48 [...] + | Tommy, Rad Results In - 11/07/2018 1305 PDT EXAM:XR [...] | | | + +---------+ + + Urinalysis with Microscopic if Indicated (11/07/2018 10:22 PDT) + + + + + + | Component | Value | Ref Range | Performed | Pathologist | | | | | At | Signature | + + + + + + | Color | Yellow | Light Yellow, | [facility] | | | | | Yellow, Straw | [facility] | | | | | | [facility] | | | | [facility] - | | | | | | [facility]ATORY | | + + + + + + | Clarity | Hazy (A) | Clear | [facility] | | | | | | [facility] | | | | | | [facility] | | | [facility] - | | | | | | [facility]ORY | | + + + + + + | pH, Urine | 5.0 | 5.0 - 8.0 | [facility] | | | | | | [facility] | | | | | | [facility] | | | | [facility] - | | | | | | [facility]ATORY | | + + + + + + | Specific | 1.020 | 1.001 - 1.030 | [facility] | | | Vina | | | [facility] | | | | | | [facility] | | | | | | [facility] - | | | | | | [facility]ATORY | | + + + + + + | Protein, | Negative | Negative | [facility] | | | Urine | | | [facility] | | | | | | [facility] | | | | | | [facility] - | | | | | | [facility]ATORY | | + + + + + + | Blood, | Negative | Negative | [facility] | | | Urine | | | [facility] | | | | | | [facility] | | | | | | [facility] - | | | | | | [facility]ATORY | | + + + + + + | Glucose, | 50 mg/dL (A) | Negative | [facility] | | | Urine | | | [facility] | | | | | | [facility] | | | | | | [facility] - | | | | | | LAB[facility]ATORY | | + + + + + + | Ketones, | Negative | Negative | [facility] | | | Urine | | | [facility] | | | | | | [facility] | | | | | | [facility] - | | | | | | LAB[facility]ATORY | | + + + + + + | Bilirubin, | Negative | Negative | [facility] | | | Urine | | | [facility] | | | | | | [facility] | | | | | | [facility] - | | | | | | LAB[facility]ATORY | | + + + + + + | Nitrite, | Negative | Negative | [facility] | | | Urine | | | [facility] | | | | | | [facility] | | | | | | [facility] - | | | | | | LAB[facility]ATORY | | + + + + + + | Leukocyte | Negative | Negative | [facility] | | | Esterase, | | | [facility] | | | Urine | | | MEDICAL | | | | | | CENTER - | | | | | | LABORATORY | | + + + + + + | Urobilinoge | Negative | 0.2 mg/dL, 1.0 | [facility] | | | n, Urine | | mg/dL, Negative | [facility] | | | | | | [facility] | | | | | | [facility] - | | | | | | LAB[facility]ATORY | | + + + + + + | WBC UA | 0-2 | 0 - 2 /HPF | [facility] | | | | | | [facility] | | | | | | [facility] | | | | [facility] - | | | | | | [facility]ATORY | | + + + + + + | RBC UA | 0-2 | 0 - 2 /HPF | [facility] | | | | | | [facility] | | [facility] | | | [facility] | | | | | | [facility] - | | | | | | [facility]ATORY | | + + + + + + | SQUAMOUS | 15-25 (A) | 0 - 2 /LPF | [facility] | | | EPITHELIAL | | | [facility] | | | UA | | | [facility] | | | | | | C[facility] - | | | | | | LABORATORY | | + + + + + + | BACTERIA UA | Negative | Negative /HPF | [facility] | | | | | | [facility] | | | | | | [facility] | | | | | | [facility] - | | | | | | LAB[facility]ATORY | | + + + + + + | MUCUS UA | Present (A) | Negative /LPF | [facility] | | | | | | [facility] | | | | | | [facility]ENTER - | | | | | | LABORATORY | | + + + + + + + + | Specimen | + + | Urine | + + + + + + + | Performing | Address | City/State/Zipcode | Phone Number | | Organization | | | | + + + + + | [facility] | [address] | [place] | [phone] | | [facility] | | [address] | | | - LABORATORY | | | | + + + + + Lipid Panel (11/07/2018 10:22 PDT) + + + + + + | Component | Value | Ref Range | Performed | Pathologist | | | | | At | Signature | + + + + + + | Triglycerid | 266 (H) | 30 - 150 mg/dL | [facility] | | | es | | | [facility] | | | | | [facility] | | | | | | [facility] | | | | | | LABORATORY | | + + + + + + | Cholesterol | 178Comment: CHOLESTEROL | 150 - 200 mg/dL | [facility] | | | | may be adversely | | [facility] | | | | affected by 1+ | | MEDICAL | | | | bilirubin. | | [facility]ARK | | | | | | LABORATORY | | + + + + + + | HDL | 27 (L) | 40 - 60 mg/dL | [facility] | | | | | | [facility] | | | | | [facility] | | | | | | [facility] | | | | | | LABORATORY | | + + + + + + | Chol/HDL | 6.6 | | [facility] | | | Ratio | | | [facility] | | | | | | [facility] | | | | | | [facility]ARK | | | | | | LABORATORY | | + + + + + + | LDL, | 98 | <130 mg/dL | [facility] | | | Calculated | | | [facility] | | | | | | [facility] | | | | | | PARK | | | | | | LABORATORY | | + + + + + + + + | Specimen | + + | Blood | + + + + + + + | Performing | Address | City/State/Zipcode | Phone Number | | Organization | | | | + + + + + | [facility] | [address] | [place] | [phone] | | [facility] | | [address] | | | [facility] | | | | + + + + + CBC with Differential (11/07/2018 10:22 PDT) + + + + + + | Component | Value | Ref Range | Performed | Pathologist | | | | | At | Signature | + + + + + + | WBC | 7.8 | 4.0 - 11.0 K/uL | [facility] | | | | | | [facility] | | [facility] | [facility] | | | | | | [facility] | | | | | | LAB[facility]ATORY | | + + + + + + | RBC | 5.32 (H) | 3.70 - 5.20 | [facility] | | | | | M/uL | [facility] | | | | | | [facility] | | | | | | [facility] | | | | | | LABORATORY | | + + + + + + | Hemoglobin | 14.5 | 11.5 - 16.0 | [facility] | | | | | g/dL | [facility] | | | | | | [facility] | | | | | | [facility] | | | | | | LABORATORY | | + + + + + + | Hematocrit | 43.2 | 34.0 - 47.0 % | [facility] | | | | | | [facility] | | | | | | [facility] | | | | | | [facility] | | | | | | LABORATORY | | + + + + + + | MCV | 81.2 (L) | 83.0 - 101.0 fL | [facility] | | | | | | [facility] | | | | | [facility] | | | | | | [facility] | | | | | | LABORATORY | | + + + + + + | MCH | 27.3 (L) | 28.0 - 35.0 pg | [facility] | | | | | | [facility] | | | | | [facility] | | | | | | [facility] | | | | | | LAB[facility]ATORY | | + + + + + + | MCHC | 33.6 | 32.0 - 36.0 | [facility] | | | | | g/dL | [facility] | | | | | | [facility] | | | | | | [facility] | | | | | | LABORATORY | | + + + + + + | RDW-CV | 13.7 | <15.0 % | [facility] | | | | | | [facility] | | | | | [facility] | | | | | | [facility] | | | | | | LABORATORY | | + + + + + + | RDW-SD | 41.1 | 35.1 - 46.3 fL | [facility] | | | | | | [facility] | | | | | [facility] | | | | | | [facility] | | | | | | LABORATORY | | + + + + + + | Platelet | 322 | 140 - 440 K/uL | [facility] | | | Count | | | [facility] | | | | | | [facility] | | | | | | [facility]ARK | | | | | | LABORATORY | | + + + + + + | MPV | 9.8 | 6.5 - 12.4 fL | [facility] | | | | | | [facility] | | | | | | [facility] | | | | | | [facility] | | | | | | LAB[facility]ATORY | | + + + + + + | % | 44.1 (L) | 45.0 - 82.0 % | [facility] | | | Neutrophils | | | [facility] | | | | | | [facility] | | | | | | [facility]ARK | | | | | | LABORATORY | | + + + + + + | % | 40.5 | 20.0 - 45.0 % | [facility] | | | Lymphocytes | | | [facility] | | | | | | [facility] | | | | | | [facility]ARK | | | | | | LABORATORY | | + + + + + + | % Monocytes | 10.5 | 4.0 - 12.0 % | [facility] | | | | | | [facility] | | | | | | [facility] | | | | | | [facility] | | | | | | LABORATORY | | + + + + + + | % | 3.6 | 0.0 - 5.0 % | [facility] | | | Eosinophils | | | [facility] | | | | | | [facility] | | | | | | PARK | | | | | | LABORATORY | | + + + + + + | % Basophils | 1.0 | 0.0 - 1.0 % | [facility] | | | | | | [facility] | | | | | | [facility] | | | | | | [facility]ARK | | | | | | LABORATORY | | + + + + + + | % Immature | 0.3 | 0.0 - 0.4 % | [facility] | | | Granulocyte | | | [facility] | | | s | | | MEDICAL | | | | | | PARK | | | | | | LABORATORY | | + + + + + + | Absolute | 3.45 | 1.80 - 8.50 | [facility] | | | Neutrophils | | K/uL | [facility] | | | | | | [facility] | | | | | | [facility] | | | | | | LABORATORY | | + + + + + + | Absolute | 3.17 | 0.60 - 3.20 | [facility] | | | Lymphocytes | | K/uL | [facility] | | | | | | [facility] | | | | | | [facility]ARK | | | | | | LABORATORY | | + + + + + + | Absolute | 0.82 | 0.00 - 1.00 | [facility] | | | Monocytes | | K/uL | [facility] | | | | | | [facility] | | | | | | [facility]ARK | | | | | | LABORATORY | | + + + + + + | Absolute | 0.28 | 0.00 - 0.40 | [facility] | | | Eosinophils | | K/uL | [facility] | | | | | | [facility] | | | | | | PARK | | | | | | LABORATORY | | + + + + + + | Absolute | 0.08 | 0.00 - 0.10 | [facility] | | | Basophils | | K/uL | [facility] | | | | | | [facility] | | | | | | PARK | | | | | | LABORATORY | | + + + + + + | Absolute | 0.02 | 0.00 - 0.03 | [facility] | | | Immature | | K/uL | [facility] | | | Granulocyte | | | MEDICAL | | | s | | | PARK | | | | | | LABORATORY | | + + + + + + + + | Specimen | + + | Blood | + + + + + + + | Performing | Address | City/State/Zipcode | Phone Number | | Organization | | | | + + + + + | [facility] | [address] | [place] | [phone] | | [facility] | | [address] | | | [facility] | | | | + + + + + TSH (11/07/2018 10:22 PDT) + +-------+ + + + | Component | Value | Ref Range | Performed | Pathologist | | | | | At | Signature | + +-------+ + + + | TSH | 2.52 | 0.36 - 3.74 | [facility] | | | | | uIU/mL | [facility] | | | | | | MEDICAL | | | | | | PARK | | | | | | LABORATORY | | + +-------+ + + + + + | Specimen | + + | Blood | + + + + + + + | Performing | Address | City/State/Zipcode | Phone Number | | Organization | | | | + + + + + | [facility] | [address] | [place] | [phone] | | [facility] | | [address] | | | [facility] | | | | + + + + + Hemoglobin A1C (11/07/2018 10:22 PDT) + +---------+ + + + | Component | Value | Ref Range | Performed | Pathologist | | | | | At | Signature | + +---------+ + + + | Hemoglobin | 8.4 (H) | 4.3 - 6.0 % | [facility] | | | A1c | | | [facility] | | | | | | [facility] | | | | | | CENTER - | | | | | | LABORATORY | | + +---------+ + + + | Estimated | 194 | mg/dL | [facility] | | | Average | | | [facility] | | | Glucose | | | MEDICAL | | | | | | CENTER - | | | | | | LABORATORY | | + +---------+ + + + + + | Specimen | + + | Blood | + + + + + + + | Performing | Address | City/State/Zipcode | Phone Number | | Organization | | | | + + + + + | [facility] | [address] | [place] | [phone] | | [facility] | | [address] | | | - LABORATORY | | | | + + + + + Comprehensive Metabolic Panel (11/07/2018 10:22 PDT) + + + + + + | Component | Value | Ref Range | Performed | Pathologist | | | | | At | Signature | + + + + + + | Na | 136 | 136 - 145 | [facility] | | | | | mmol/L | [facility] | | | | | | [facility] | | | | | | [facility] | | | | | | LABORATORY | | + + + + + + | K | 4.1 | 3.5 - 5.1 | [facility] | | | | | mmol/L | [facility] | | | | | | [facility] | | | | | | [facility]ARK | | | | | | LABORATORY | | + + + + + + | Cl | 101 | 98 - 107 mmol/L | [facility] | | | | | | [facility] | | | | | | [facility] | | | | | | [facility]ARK | | | | | | LABORATORY | | + + + + + + | CO2 | 26 | 21 - 32 mmol/L | [facility] | | | | | | [facility] | | | | | | [facility] | | | | | | [facility]ARK | | | | | | LABORATORY | | + + + + + + | Anion Gap | 9 | 2 - 16 mmol/L | [facility] | | | | | | [facility] | | | | | | [facility] | | | | | | [facility]ARK | | | | | | LABORATORY | | + + + + + + | Glucose | 183 (H) | 74 - 106 mg/dL | [facility] | | | | | | [facility] | | | | | | [facility] | | | | | | [facility]ARK | | | | | | LABORATORY | | + + + + + + | BUN | 14 | 7 - 18 mg/dL | [facility] | | | | | | [facility] | | | | | | [facility] | | | | | | [facility]ARK | | | | | | LABORATORY | | + + + + + + | Creatinine | 0.90 | 0.55 - 1.02 | [facility] | | | | | mg/dL | [facility] | | | | | | MEDICAL | | | | | | PARK | | | | | | LABORATORY | | + + + + + + | eGFR if not | >60Comment: GLOMERULAR | >=60 | [facility] | | | | FILTRATION | mL/min/1.73m2 | [facility] | | | [place] | RATE,ESTIMATED mL/min | | MEDICAL | | | | /1.58t4Cwqa than 60 | | PARK | | | | Chronic kidney | | LABORATORY | | | | disease,if found over a | | | | | | 3-month period.Less than | | | | | | 15 Kidney | | | | | | failureFor | | | | | | Americans,multiply the | | | | | | calculated GFR by 1.21. | | | | | | | | | | + + + + + + | Calcium | 8.6 | 8.5 - 10.1 | [facility] | | | | | mg/dL | [facility] | | | | | | [facility] | | | | | | [facility]ARK | | | | | | LABORATORY | | + + + + + + | Albumin | 3.6 | 3.4 - 5.0 g/dL | [facility] | | | | | | [facility] | | | | | | [facility] | | | | | | [facility]ARK | | | | | | LABORATORY | | + + + + + + | Bilirubin | 0.4 | 0.2 - 1.0 mg/dL | [facility] | | | Total | | | [facility] | | | | | | [facility] | | | | | | [facility]ARK | | | | | | LABORATORY | | + + + + + + | Total | 7.1 | 6.4 - 8.2 g/dL | [facility] | | | Protein | | | [facility] | | | | | | [facility] | | | | | | PARK | | | | | | LABORATORY | | + + + + + + | AST | 35 | 15 - 37 U/L | [facility] | | | | | | [facility] | | | | | | [facility] | | | | | | PARK | | | | | | LABORATORY | | + + + + + + | ALT | 59 | 14 - 59 U/L | [facility] | | | | | | [facility] | | | | | | [facility] | | | | | | PARK | | | | | | LABORATORY | | + + + + + + | Alkaline | 125 (H) | 46 - 116 U/L | [facility] | | | Phosphatase | | | [facility] | | | | | | [facility] | | | | | | PARK | | | | | | LABORATORY | | + + + + + + | Globulin | 3.5 | 2.1 - 3.8 g/dL | [facility] | | | | | | [facility] | | | | | | [facility] | | | | | | [facility]ARK | | | | | | LABORATORY | | + + + + + + | Albumin/Joan | 1.0 | 0.8 - 2.0 | [facility] | | | bulin Ratio | | | [facility] | | | | | | [facility] | | | | | | PARK | | | | | | LABORATORY | | + + + + + + | BUN/Creatin | 15.6 | | [facility] | | | ine Ratio | | | [facility] | | | | | | [facility] | | | | | | PARK | | | | | | LABORATORY | | + + + + + + + + | Specimen | + + | Blood | + + + + + + + | Performing | Address | City/State/Zipcode | Phone Number | | Organization | | | | + + + + + | [facility] | [address] | [place] | [phone] | | [facility] | | [address] | | | [facility] | | | | + + + + + XR Chest PA and Lateral (10/25/2018 12:47 PDT) + + | Specimen | + + | | + + + + + | Narrative | Performed At | + + + | CLINICAL INFORMATION: chronic cough, former smoker. COMPARISON: | [facility] | | None available. FINDINGS: Frontal and lateral views of the | | | chest. Lungs: No focal airspace disease, pleural effusion, or | | | pneumothorax. Heart/mediastinum: Cardiac silhouette is of normal | | | size. Central pulmonary vasculature has a normal | | | appearance. Prominent aortic vascular calcifications. Bones: No | | | acute osseous abnormality appreciated. Chronic wedge compression | | | deformities at the superior endplate of T8 and T11. Other: Spinal | | | stimulator device noted. IMPRESSION - No acute cardiopulmonary | | | disease. Dictated and Signed by: Bryan Hull MD | | | Electronically signed: 10/25/2018 3:20 PM | | + + + + + | Procedure Note | + + | Tommy, Rad Results In - 10/25/2018 1523 PDT CLINICAL INFORMATION: chronic cough, former | | smoker.COMPARISON: None available.FINDINGS: Frontal and lateral views of the chest. | | Lungs: No focal airspace disease, pleural effusion, or pneumothorax. Heart/mediastinum: | | Cardiac silhouette is of normal size. Central pulmonaryvasculature has a normal | | appearance. Prominent aortic vascular calcifications.Bones: No acute osseous | | abnormality appreciated. Chronic wedge compressiondeformities at the superior endplate | | of T8 and T11.Other: Spinal stimulator device noted.IMPRESSION - No acute | | cardiopulmonary disease.Dictated and Signed by: Bryan Hull MD Electronically | | signed: 10/25/2018 3:20 PM | |Heart/mediastinum: Cardiac silhouette is of normal size. Central pulmonary | |vasculature has a normal appearance. Prominent aortic vascular calcifications. | | | |Bones: No acute osseous abnormality appreciated. Chronic wedge compression | |deformities at the superior endplate of T8 and T11. | | | |Other: Spinal stimulator device noted. | | | |IMPRESSION - No acute cardiopulmonary disease. | | | |Dictated and Signed by: Bryan Hull MD | | Electronically signed: 10/25/2018 3:20 PM | + + + +---------+ + + | Performing | Address | City/State/Zipcode | Phone Number | | Organization | | | | + +---------+ + + | [facility] | | | | + +---------+ + + XR Shoulder Right 2 + Vw (10/25/2018 [...] | | | + +---------+ + + IMAGING REPORT - EXTERNAL SCAN (09/08/2018 0:00 PDT)Only the most recent of 2 results with in the time period is included. + + + | Narrative | Performed At | + + + | Ordered by an | | | unspecified provider. | | + + + LABS - EXTERNAL SCAN (09/08/2018 0:00 PDT) + + + | Narrative | Performed At | + + + | Ordered by an | | | unspecified provider. | | + + + XR Chest 2 Vws (09/08/2018 0:00 PDT) [...] | | | + +---------+ + + from Last 3 Months Insurance + +--------+ +--------+ +---------+--------+ | Payer | Benefi | Subscriber | Effect | Phone | Address | Type | | | t Plan | ID | dodie | | | | | | / | | Dates | | | | | | Group | | | | | | + +--------+ +--------+ +---------+--------+ | MEDICARE | MEDICA | [id number] | 04/23/19 | [phone] | | Medica | | | RE | | 11-Pre | 5 | | re | | | PART A | | sent | | | | | | AND B | | | | | | + +--------+ +--------+ +---------+--------+ | | [employer] | [id number] | | [phone] | | Indemn | | | E FOR | | 018-Pr | 0 | | ity | | | LIFE | | esent | | | | + +--------+ +--------+ +---------+--------+ + +--------+ +--------+ + + | Guarantor Name | Accoun | Relation to | Date | Phone | Billing Address | | | t Type | Patient | of | | | | | | | | | | + +--------+ +--------+ + + | Chelsey Devlin | Person | Self [birth year] | [address] | | [place] | vi/Manny | | 1946 | [phone] | [place] | | | aks[place] | | | 2 (Home) | [phone] | + +--------+ +--------+ + + Advance Directives Patient has advance care planning documents on file. For more information, please contact:[facility] and [facility] [place] [address]
--- OUTSIDE RECORDS SUMMARY | ~2018-11-25 | XMS | Encounter Summary ---
Demographics + + + | Address | [address] | | | [place] [address] | + + + | Home Phone | | + + + | Preferred Language | Unknown | + + + | Marital Status | | + + + | Nondenominational Affiliation | Unknown | + + + | Race | Unknown | + + + | Ethnic Group | Unknown | + + + Author + + + | Author | [facility] | | | and [place] | + + + | Organization | [facility] | | | and [place] [...] [place], [place] | | | | | [address] | | + + + + + | Kat Garcia | ECON | [address] | | | | | [place], [place] | | | | | [address] | | + + + + + Care Team Providers + +------+ + | Care Tap Grinder Name | Role | Phone | + +------+ + | Jose Zhao MD | PCP | | + +------+ + Encounter Details +--------+ + + + + | Date | Type | Department | Care Team | Description | +--------+ + + + + | 10/25/ | Imaging | [facility] [place] [facility] | Jose Zhao, | Chronic cough | | 2019 | Exam | [address] | | | | [address] [place] | [place] | | | | | [place] [address] | [phone] | | | | | [phone] | | | +--------+ + + + [...] | 2018 | | | MD [address] | | | | | | [place] | | | | | | [id number] | | | | | | | | | | | | [place] | | +--------+ + + + + | 12/06/ | Appointment | Radiology | Jose Zhao, | | | 2018 | | | [address] | | | | | | [place] | | | | | | [address] | | | | | | | | +--------+ + + + + | 12/07/ | Office | Orthopedic Surgery | Jose Zhao, | | | 2018 | Visit | | [address] | | | | | | [place] | | | | | | [address] | | | | | | | | | | | | Carlos Nguyễn | | | | | | MD [address] | | | | | | [address] | | | | | | [place] [address] | | | | | | [phone] | | | | | | | | +--------+ + + + + | 02/27/ | Office | Family Medicine | Jose Zhao, | | | 2019 | Visit | | [address] | | | | | | [place] | | | | | | [address] | | | | | | | [...] documented in this encounter Results XR Chest PA and Lateral (10/25/2018 12:47 [...] + + | Tommy, Rad Results In 10/25/2018 1523 PDT CLINICAL INFORMATION: chronic cough, [...] | Diagnosis | + + | Chronic cough Cough | + + documented in this encounter"
--- OUTSIDE RECORDS SUMMARY | ~2018-11-25 | XMS | Encounter Summary ---
Demographics + + + | Address | [address] | | | [place] [address] | + + + | Home Phone | | + + + | Preferred Language | Unknown | + + + | Marital Status | | + + + | Christian Affiliation | Unknown | + + + | Race | Unknown | + + + | Ethnic Group | Unknown | + + + Author + + + | Author | [facility] | | | and [place] | + + + | Organization | [facility] | | | and [...] [place], [place] | | | | | [address] | | + + + + + | Kat Garcia | ECON | [address] | | | | | [place], [place] | | | | | [address] | | + + + + + Care Team Providers + +------+ + | Care Chief Wellness Officer Name | Role | Phone | + +------+ + | Jose Zhao MD | PCP | | + +------+ + Encounter Details +--------+ + + + + | Date | Type | Department | Care Team | Description | +--------+ + + + + | 11/07/ | Hospital | [facility] | Carlos Nguyễn | Right shoulder pain, | | 2019 | Encounter | [facility] | MD [address] | unspecified | | | | [address] [place] | [facility] | chronicity | | | | [place] | [place] [address] | | | | | [address] | [phone] | | | | | [phone] | | | +--------+ + + + [...] [place] | | | | | | [address] | | | | | | | | | | | | [place] | | +--------+ + + + + | 12/06/ | Appointment | Radiology | Jose Zhao, | | | 2018 | | | [address] | | | | | | [place] | | | | | | [address] | | | | | | | | +--------+ + + + + | 12/07/ | Office | Orthopedic Surgery | Jose Zhao, | | | 2018 | Visit | | [address] | | | | | | [place] | | | | | | [address] | | | | | | | | | | | | Carlos Nguyễn | | | | | | MD [address] | | | | | | [address] | | | | | | [place] [address] | | | | | | [phone] | | | | | | | | +--------+ + + + + | 02/27/ | Office | Family Medicine | Jose Zhao, | | | 2019 | Visit | | [address] | | | | | | [place] | | | | | | [address] | | | | | | | [...]
--- OUTSIDE RECORDS SUMMARY | ~2018-11-25 | XMS | Clinical Summary ---
Demographics + + + | Address | [address] | | | [place] [address] | + + + | Home Phone | | + + + | Preferred Language | Unknown | + + + | Marital Status | | + + + | Jainism Affiliation | Unknown | + + + | Race | Unknown | + + + | Ethnic Group | Unknown | + + + Author + + + | Author | [facility] | | | and [place] | + + + | Organization | [facility] | | | and [place] | [...] [place], [place] | | | | | [address] | | + + + + + | Kat Garcia | ECON | [address] | | | | | [place], [place] | | | | | [address] | | + + + + + Care Team Providers + +------+ + | Care Ic Designer Gate Arrays Name | Role | Phone | + [...] 11/07/ | Office | Orthopedic Surgery | Jose Zhao, | Primary | | 2018 | [...] [place] | | | | | | [address] | | | | | | | | | | | | Rad, [facility] | | +--------+ + + + + | 12/06/ | Appointment | Radiology | Jose Zhao, | | | 2018 | | | [address] | | | | | | [place], [place] | | | | | | [address] | | | | | | | | +--------+ + + + + | 12/07/ | Office | Orthopedic Surgery | Jose Zhao, | | | 2018 | Visit | | [address] | | | | | | [place] | | | | | | [address] | | | | | | | | | | | | Carlos Nguyễn | | | | | | MD [address] | | | | | | [address] | | | | | | [place] [address] | | | | | | [phone] | | | | | | | [...] | signed by: Eriberto Milner MD, 11/16/2018 12:01[facility] | | [facility] | | | | | |IMPRESSION: Spirometry [...] MD 11/16/2018 | | |12:01 | | |[facility] | | + + + XR Shoulder [...] - 1.030 | [facility] | | | [place] | | | [facility] | | [...] [address] | [place] | [phone] | | [facility] | | [address] | | | - LABORATORY | | [...] + + | [facility] | [address] | [place] | [phone] | | [facility] | | [address] | | | [facility] | | [...] + + | [facility] | [address] | [place] | [phone] | | [facility] | | [address] | | | [facility] | | [...] | | | | uIU/mL | [facility] | | | | | | [...] + + + | [facility] | [address] | [place] | [phone] | | [facility] | | [address] | | | [facility] | | [...] [address] | [place] | [phone] | | [facility] | | [address] | | | - LABORATORY | | [...] | | | | | mg/dL | [facility] | | | | | | MEDICAL | | | | | | PARK | | | | | | LABORATORY | | + + + + + + | eGFR if not | >60Comment: GLOMERULAR | >=60 | [facility] | | | | FILTRATION | mL/min/1.73m2 | [facility] | | | [place] | RATE,ESTIMATED mL/min | | MEDICAL | | | | /1.99h1Eydx than 60 | | PARK | | [...] + + + | [facility] | [address] | [place] | [phone] | | [facility] | | [phone] | | | [facility] | | | | + + + [...] +--------+ +---------+--------+ | MEDICARE | MEDICA | [id number] | 04/23/19 | [phone] | | Medica | | | RE | | 11-Pre | 5 | | re | | | PART A | | sent | | | | | | AND B | | | | | | + +--------+ +--------+ +---------+--------+ | | TRICAR | [id number] | | [phone] | | Indemn | [...] akshat | | | 2 (Home) | [phone] | + +--------+ +--------+ + + Advance Directives Patient has advance care planning documents on file. For more information, please contact:[facility] [address]
--- OUTSIDE RECORDS SUMMARY | ~2018-11-25 | XMS | Encounter Summary ---
Demographics + + + | Address | [address] | | | [place] [address] | + + + | Home Phone | | + + + | Preferred Language | Unknown | + + + | Marital Status | | + + + | Roman Catholic Affiliation | Unknown | + + + | Race | Unknown | + + + | Ethnic Group | Unknown | + + + Author + + + | Author | [facility] | | | and [place] | + + + | Organization | [facility] | | | and [place]ana [...] [place], [place] | | | | | [address] | | + + + + + | Kat Garcia | ECON | [address] | | | | | [place], [place] | | | | | [address] | | + + + + + Care Team Providers + +------+ + | Care Driver License Reviewing Officer Name | Role | Phone | + +------+ + | Jose Zhao MD | PCP | | + +------+ + Reason for Visit +---------+ + | Reason | Comments | +---------+ + | Results | | +---------+ + Encounter Details +--------+ + + + + | Date | Type | Department | Care Team | Description | +--------+ + + + + | 11/14/ | Telephone | [facility] | Jose Zhao, | Results | | 2019 | | MEDICINE [facility] | [address] | | | | | [address] | [place] | | | | | [place] | [address] | | | | | [address] | | | | | | [phone] | | | +--------+ + + + [...] | | | | | | [place] | | | | | | [address] | | | | | | | | | | | | [place] | | +--------+ + + + + | 12/06/ | Appointment | Radiology | Jose Zhao, | | | 2018 | | | [address] | | | | | | [place] | | | | | | [address] | | | | | | | | +--------+ + + + + | 12/07/ | Office | Orthopedic Surgery | Jose Zhao, | | | 2018 | Visit | | [address] | | | | | | [place] | | | | | | [address] | | | | | | | | | | | | Carlos Nguyễn | | | | | | MD [address] | | | | | | [place] | | | | | | [place] [address] | | | | | | [phone] | | | | | | | | +--------+ + + + + | 02/27/ | Office | Family Medicine | Jose Zhao, | | | 2019 | Visit | | [address] | | | | | | [place] | | | | | | [address] | | | | | | | | +--------+ + + + + documented as of this encounter Visit Diagnoses Not on filedocumented in this encounter"
--- OUTSIDE RECORDS SUMMARY | ~2018-11-25 | XMS | Encounter Summary ---
Demographics + + + | Address | [address] | | | [place] [address] | + + + | Home Phone | | + + + | Preferred Language | Unknown | + + + | Marital Status | | + + + | Baptism Affiliation | Unknown | + + + | Race | Unknown | + + + | Ethnic Group | Unknown | + + + Author + + + | Author | [facility] | | | and [place] | + + + | Organization | [facility] | | | and [...] [place], [place] | | | | | [address] | | + + + + + | Kat Garcia | ECON | [address] | | | | | [place], [place] | | | | | [address] | | + + + + + Care Team Providers + +------+ + | Care International Relations Professor Name | Role | Phone | + [...] Jason RALPH | | | | | [phone] | [place] [address] | | +--------+ + + + + [...] [place] | | | | | | [id number] | | | | | | | | | | | | [place] | | +--------+ + + + + | 12/06/ | Appointment | Radiology | Jose Zhao, | | | 2018 | | | [address] | | | | | | [place] | | | | | | [address] | | | | | | | | +--------+ + + + + | 12/07/ | Office | Orthopedic Surgery | Jose Zhao, | | | 2018 | Visit | | [address] | | | | | | [place] | | | | | | [address] | | | | | | | | | | | | Carlos Nguyễn | | | | | | MD [address] | | | | | | [place] | | | | | | [place] [address] | | | | | | [phone] | | | | | | | | +--------+ + + + + | 02/27/ | Office | Family Medicine | Jose Zhao, | | | 2019 | Visit | | [address] | | | | | | [place] | | | | | | [address] | | | | | | | [...]
--- OUTSIDE RECORDS SUMMARY | ~2018-11-25 | XMS | Encounter Summary ---
Demographics + + + | Address | [address] | | | [place] [address] | + + + | Home Phone | | + + + | Preferred Language | Unknown | + + + | Marital Status | | + + + | Islam Affiliation | Unknown | + + + | Race | Unknown | + + + | Ethnic Group | Unknown | + + + Author + + + | Author | [facility] | | | and [place] | + + + | Organization | [facility] | | | and [...] [place], [place] | | | | | [address] | | + + + + + | Kat Garcia | ECON | [address] | | | | | [place], [place] | | | | | [address] | | + + + + + Care Team Providers + +------+ + | Care Improvement Coordinator Name | Role | Phone | + +------+ + | Jose Zhao MD | PCP | | + +------+ + Reason for Visit + + + | Reason | Comments | + + + | Follow-up | PFT results | + + + Evaluate & Treat (Routine) + + + + + + + | Status | Reason | Specialty | Diagnoses / | Referred By | Referred To | | | | | Procedures | Contact | Contact | + + + + + + + | Authorized | Specialty | Pulmonary | Diagnoses | Cece, | Alf, | | | Services | Disease / | Chronic | Jose Del Castillo MD | MD Eriberto | | | Required | Pulmonology | obstructive | [address] | | | | | pulmonary | [address] [place] | [place], | | | | | disease, | [place], [place] | [place] [address] | | | | | unspecified | [address] | Phone: | | | | | COPD type | Phone: | [phone] | | | | | ([facility]) | [phone] | Fax: | | | | | | Fax: | [phone] | | | | | | [phone] | | + + + + + + + Encounter Details +--------+---------+ + + + | Date | Type | Department | Care Team | Description | +--------+---------+ + + + | 11/16/ | Office | [facility] | Eriberto Milner, | Chronic obstructive | | 2019 | Visit | PULMONARY [address] | pulmonary disease, | | | | [place], | [place] | unspecified COPD | | | | [place] [address] | [address] | type (HCC) (Primary | | | | [phone] | | Dx); Need for | | [...] | | | | nicotine dependence | +--------+---------+ + + + Social History [...] + + + | Blood Pressure | 140/70 | 11/16/20181123 PDT | + + + + | Pulse | 71 | 11/16/20181123 PDT | + + + + | Temperature | - | - | + + + + | Respiratory Rate | - | - | + + + + | Oxygen Saturation | 98% | 11/16/20181123 PDT | + + + + | Inhaled Oxygen | - | - | | Concentration | | | + + + + | Weight | 67.8 kg (149 lb 7.6 | 11/16/2018 1124 PDT | | | oz) | | + + + + | Height | 165.1 cm (5' 5") | 11/16/2018 1124 PDT | + + + + | Body Mass Index | 24.87 | 11/16/2018 1124 PDT | + + + + documented in this encounter Patient Instructions Patient Instructions Eriberto Milner MD - 11/16/2018 11:30 PDTFormatting of this note mi ght be different from the original. Computed Tomography (CT) During the test, relax and remain as still as you can. Computed tomography (CT) is a test that combines X-rays and computer scans. The result is a detailed picture that can show problems with soft tissues, such as the lining of your sinus es, organs, such as your kidneys or lungs, blood vessels, and bones. Tell the technologist Be sure to tell the technologist if you: Have allergies or kidney problems Take diabetes medicine Are or think you may be Ate or drank anything before the test Before your test Be sure to tell your healthcare provider if you have ever had a reaction to contrast mat erial ("X-ray dye"). If you have had a reaction, you may need to take medicine before your s can, so be sure to tell your provider ahead of time. Be sure to mention the medicines you take. Ask if it's OK to take them before the test. Follow any directions you re given for not eating or drinking before the procedure. Yo provider will give you instructions if required. You may be required to drink contrast by mouth before arriving for the study depending on the type of exam you are having. Your prov ider or the imaging site will provide this for you. The length of the procedure may vary, depending on your condition and your provider's pr actices. Arrive on time to check in. When you arrive, you may be asked to change into a hospital gown.Remove all metal near the part of your body that will be scanned, including jewelry, eyeglasses, and dentures. Wo men may need to remove any bra that has metal underwire. During your test You may be given contrast through an intravenous (IV) line or by mouth. You will lie on a table. The table slides into the CT scanner. The technologist will ask you to hold your breath for a few seconds during your scan. After your test You can go back to your normal diet and activities right away. Any contrast will pass na turally through your body within a day. Before leaving, you may need to wait briefly while your images are being reviewed. Your healthcare provider will discuss the test results with you during a follow-up appointment or over the phone. Your next appointment is: Date Last Reviewed: 06/22/201619990463-5285 [facility] [place] [address], [place] [address]. All righ ts reserved. This information is not intended as a substitute for professional medical care. Always follow your healthcare professional's instructions. documented in this encounter Progress Notes Eriberto Milner MD - 11/16/2018 1130 PDT Pulmonary Follow Up 11/16/2018 EULOGIO Ashtondanitza Devlin is a 73 y.o. female patient of Jose Zhao MD here today for josé grandelow up of presumptive COPD. The last pulmonary clinic visit was on 11/01/2018. Since their last appointment they feel li ke their breathing issues have been stable. They have not had any acute pulmonary illnesses. The patient has not required a prednisone taper since our last clinic appointment. Likewise Chelsey has not required antibiotics for a COPD exacerbation since our last clinic appointment. The patient is currently on a daily regimen of prn Proventil for their COPD. They do feel like this medication regimen is/are controlling their symptoms. Currently she is using thei r short acting bronchodilator, Proventil, 0-1 times a day. Currently the patient is able to walk several miles at their own pace on level ground befor e developing dyspnea. They are not exercising regularly. Their typical exercise consists of walking. Chelsey are not enrolled in cardiac/pulmonary rehabilitation. They have not complet ed pulmonary rehabilitation in the past. Chelsey does not cough chronically and does not produce mucous. They have not had hemoptysi s since our last appointment. She has been evaluated for exertional oxygen. They have not reported recent symptoms of nasal congestion, runny nose or post nasal drip. The patient have not received this year's influenza vaccination. They are not up to date w ith their Pneumovax and Prevnar 13. Past Medical History Past Medical History: Diagnosis Date Arthritis Asthma 2004 diagnosed 2003 Cataract Depression Diabetes mellitus (HCC) Encounter for blood transfusion Fall For the last year GI bleed H/O Graves' disease Heart murmur Hyperlipidemia Hypertension Hypokalemia Hypothyroid Insomnia Lumbar back pain with radiculopathy affecting lower extremity Mild CAD and moderate abdominal aortic calcific atherosclerosis Non-specific colitis Osteoporosis Sprain of left hand Stress incontinence Vitamin D deficiency Social History: She reports that she quit smoking about 6 years ago. She started smoking about 52 years ago . She has a 105.00 pack-year smoking history. She has never used smokeless tobacco. She repo rts that she drank alcohol. Allergies: Allergies Allergen Reactions Bupropion Other (See Comments) Thyroid storm Penicillins Other (See Comments) Unknown Metformin Singulair [Montelukast] Varenicline Nausea And Vomiting Medications: Current Outpatient Medications: albuterol (PROVENTIL HFA) 90 mcg/puff inhaler, Inhale 2 puffs into the lungs every 4 h ours as needed for Wheezing or Shortness of Breath., Disp: 3 Inhaler, Rfl: 3 alendronate (FOSAMAX) 35 mg tablet, Take 1 tablet by mouth every 7 days., Disp: 90 tab let, Rfl: 1 amitriptyline (ELAVIL) 100 MG tablet, Daily., Disp: , Rfl: aspirin 81 mg EC tablet, Take 81 mg by mouth Daily., Disp: , Rfl: atorvaSTATin (LIPITOR) 10 mg tablet, Lipitor 10 mg tablet Take 1 tablet every day by oral route., Disp: , Rfl: celecoxib (CELEBREX) 100 mg capsule, , Disp: , Rfl: Cholecalciferol (VITAMIN D-3) 5000 units CAPS, Take by mouth Daily., Disp: , Rfl: glipiZIDE (GLUCOTROL) 5 mg tablet, Take 5 mg by mouth 2 times daily (before meals)., D isp: , Rfl: hydroCHLOROthiazide (HYDRODIURIL) 12.5 MG tablet, hydrochlorothiazide 12.5 mg tablet Take 1 tablet every day by oral route., Disp: , Rfl: ketoconazole (NIZORAL) 2% cream, Apply topically Daily., Disp: , Rfl: levothyroxine (SYNTHROID) 137 MCG tablet, Take 1 tablet by mouth every morning (before breakfast)., Disp: 90 tablet, Rfl: 1 lisinopril-hydrochlorothiazide (PRINZIDE,ZESTORETIC) 20-12.5 MG per tablet, Take 1 tab let by mouth Daily., Disp: , Rfl: metoprolol succinate (TOPROL XL) 25 mg 24 hr tablet, Take 1 tablet by mouth Daily., Di sp: 90 tablet, Rfl: 1 oxybutynin (DITROPAN XL) 5 mg 24 hr tablet, One po qd, Disp: 90 tablet, Rfl: 1 PARoxetine (PAXIL) 10 mg tablet, Take 1 tablet by mouth every morning., Disp: 90 table t, Rfl: 0 potassium chloride (KLOR-CON) 10 mEq CR tablet, Take 1 tablet by mouth Daily., Disp: 9 0 tablet, Rfl: 1 rosuvastatin (CRESTOR) 10 mg tablet, Take 1 tablet by mouth nightly., Disp: 90 tablet, Rfl: 1 Immunizations: Immunization History Administered Date(s) Administered INFLUENZA 65 Y OR >, TRIVALENT HIGH-DOSE 12/09/2016 ZOSTER, 1 DOSE (ZOSTAVAX) 07/27/2013 Objective BP 140/70 | Pulse 71 | Ht 1.651 m (5' 5") | Wt 67.8 kg (149 lb 7.6 oz) | SpO2 98% | BM I 24.87 kg/m Physical Exam Constitutional: She is oriented to person, place, and time and well-developed, well-nourish ed, and in no distress. HENT: Head: Normocephalic. Nose: No mucosal edema. Right sinus exhibits no frontal sinus tenderness. Left sinus exhibi ts no frontal sinus tenderness. Mouth/Throat: Oropharynx is clear and moist and mucous membranes are normal. Neck: Trachea normal. Neck supple. No JVD present. Cardiovascular: Normal rate, regular rhythm, S1 normal and S2 normal. No murmur heard. Pulmonary/Chest: No accessory muscle usage. No respiratory distress. She has decreased bibi th sounds in the right lower field and the left lower field. She has no wheezes. She has no rhonchi. She has no rales. Musculoskeletal: She exhibits no edema. Lymphadenopathy: She has no cervical adenopathy. Neurological: She is alert and oriented to person, place, and time. Gait normal. Skin: Skin is warm and intact. No cyanosis. Nails show no clubbing. Psychiatric: Affect normal. Data: Walking oximetry performed 11/16/2018. The patient walked to thousand feet over 2.5 minutes . Her O2 saturation began at 98% and nadired at 93%. Pulmonary function tests were performed on 11/16/2018 and were reviewed with the patient trever lua. They show FEV1 of 1.93, 87% of predicted with an FEV1/FVC of 76%. The residual volume was 2.11, 92% of predicted and the corrected DLCO 14.0, 60% of predicted. Assessment 1. COPD probable based on approximately 65-xpcn-emyc smoking history and subjective resp onse to albuterol. However pulmonary function test today do not show significant airflow ob struction. Based on the patient's pulmonary function, use of albuterol and symptoms no additional medi cations will be prescribed at this time. I have recommended a Prevnar and seasonal influenza vaccination. 2. Prior tobacco use/lung cancer screening patient has a 79-hnfs-ryqj smoking history a nd quit smoking approximately 6 years ago. Low-dose CT scan screening for lung cancer is ap propriate. Risk benefits and alternatives were discussed. Plan 1. Prevnar 13 and high-dose seasonal influenza vaccination today. 2. Low-dose CT scan of the chest CT for lung cancer screening. 3. Pulmonary clinic follow-up appointment in 6 months time. CC: Jose Zhao MD documented in this encounter Plan of Treatment +--------+ + + + + | Date | Type | Specialty | Care Team | Description | +--------+ + + + + | 12/06/ | Appointment | Radiology | Jose Zhao, | | | 2018 | | | MD [address] | | | | | | [place] | | | | | | [address] | | | | | | | | | | | | Rad, [facility] | | +--------+ + + + + | 12/06/ | Appointment | Radiology | Jose Zhao, | | 2018 | | | MD [address] | | | | | | [place] | | | | | | [address] | | | | | | | | +--------+ + + + + | 12/07/ | Office | Orthopedic Surgery | Jose Zhao, | | | 2018 | Visit | | [address] | | | | | | [place] | | | | | | [address] | | | | | | | | | | | | Carlos Nguyễn | | | | | | MD [address] | | | | | | [place] | | | | | | [place] [address] | | | | | | [phone] | | | | | | | | +--------+ + + + + | 02/27/ | Office | Family Medicine | Jose Zhao, | | | 2019 | Visit | | [address] | | | | | | [place] | | | | | | [address] | | | | | | | | +--------+ + + + + documented as of this encounter Visit Diagnoses + + | Diagnosis | + + | Chronic obstructive pulmonary disease, unspecified COPD type (HCC) - Primary | + + | Need for prophylactic vaccination against Streptococcus pneumoniae (pneumococcus) | | Need for prophylactic vaccination against streptococcus pneumoniae (pneumococcus) | + + | Need for immunization against influenza Need for prophylactic vaccination and | | inoculation against influenza | + + | Encounter for screening for lung cancer | + + | Tobacco use Tobacco use disorder | + + | Personal history of nicotine dependence Personal history of tobacco use, presenting | | hazards to health | + + documented in this encounter
--- OUTSIDE RECORDS SUMMARY | ~2018-11-25 | XMS | Encounter Summary ---
Demographics + + + | Address | [address] | | | [place] [address] | + + + | Home Phone | | + + + | Preferred Language | Unknown | + + + | Marital Status | | + + + | Congregational Affiliation | Unknown | + + + | Race | Unknown | + + + | Ethnic Group | Unknown | + + + Author + + + | Author | [facility] | | | and [place] | + + + | Organization | [facility] | | | and [place]ana [...] [place], [place] | | | | | [address] | | + + + + + | Kat Garcia | ECON | [address] | | | | | [place], [place] | | | | | [address] | | + + + + + Care Team Providers + +------+ + | Care Aoc Operations Intelligence Chief Name | Role | Phone | + +------+ + | Joes Zhao MD | PCP | | + +------+ + Reason for Referral Diagnostic/Screening (Routine) + +--------+ + + + + | Status | Reason | Specialty | Diagnoses / | Referred By | Referred To | | | | | Procedures | Contact | Contact | + +--------+ + + + + | Authorized | | Radiology | Diagnoses | Alf, | [facility] [address] | | | | | Personal | MD Eriberto | [address] [place] | | | | | history of | [address] | [place], | | | | | nicotine | [address] | [place] [address] | | | | | dependence | [place], | Phone: | | | | | Tobacco use | [place] [address] | [phone] | | | | | Encounter | Phone: | Fax: | | | | | for | [phone] | [phone] | | | | | screening | Fax: | | | | | | for lung | [phone] | | | | | | cancer | | | | | | | Procedures | | | | | | | CT Chest | | | | | | | Lung Cancer | | | | | | | Screening | | | + +--------+ + + + + Encounter Details +--------+ + + + + | Date | Type | Department | Care Team | Description | +--------+ + + + + | 11/23/ | Orders Only | [facility] | Eriberto Milner, | Personal history of | | 2019 | | PULMONARY [address] | MD [address] | nicotine dependence | | | | [place], | [place], [place] | (Primary Dx); | | | | [place] [address] | [address] | Tobacco use; | | | | [phone] | | Encounter for | | | | | | screening for lung | | | | | | cancer | +--------+ + + + + Social History + + + [...] + + documented as of this encounter Progress Notes Nataly Mccracken RN - 11/23/[address] Milner. Ok to change CT order to have Personal history of nicotine dependence as the primary code for CT Chest lung cancer screen ing. Previous order discontinued and new order placed. documented in this encounter Plan of Treatment +--------+ + + + + | Date | Type | Specialty | Care Team | Description | +--------+ + + + + | 12/06/ | Appointment | Radiology | Jose Zhao, | | | 2018 | | | [address] | | | | | | [place] | | | | | | [address] | | | | | | | | | | | | [place] | | +--------+ + + + + | 12/06/ | Appointment | Radiology | Jose Zhao, | | | 2018 | | | [address] | | | | | | [place] | | | | | | [address] | | | | | | | | +--------+ + + + + | 12/07/ | Office | Orthopedic Surgery | Jose Zhao, | | | 2018 | Visit | | [address] | | | | | | [place] | | | | | | [address] | | | | | | | | | | | | Carlos Nguyễn | | | | | Nafisa Conroy MD [address] | | | | | | [address] | | | | | | [place] [address] | | | | | | [phone] | | | | | | | | +--------+ + + + + | 02/27/ | Office | Family Medicine | Jose Zhao, | | | 2019 | Visit | | MD [address] | | | | | | [place] | | | | | | [address] | | | | | | | | +--------+ + + + + + +--------+ + + | Name | Priori | Associated Diagnoses | Order Schedule | | | ty | | | + +--------+ + + | CT Chest Lung Cancer Screening | Routin | Personal history | Expected: | | | e | of nicotine | 11/23/2018, Expires: | | | | dependence Tobacco | 11/24/2019 | | | | use Encounter for | | | | | screening for lung | | | | | cancer | | + +--------+ + + documented as of this encounter Visit Diagnoses + + | Diagnosis | + + | Personal history of nicotine dependence - Primary Personal history of tobacco use, | | presenting hazards to health | + + | Tobacco use Tobacco use disorder | + + | Encounter for screening for lung cancer | + + documented in this encounter"
--- OUTSIDE RECORDS SUMMARY | ~2018-11-25 | XMS | Clinical Summary ---
Demographics + + + | Address | [address] | | | [place] [address] | + + + | Home Phone | | + + + | Preferred Language | Unknown | + + + | Marital Status | | + + + | Anabaptism Affiliation | Unknown | + + + | Race | Unknown | + + + | Ethnic Group | Unknown | + + + Author + + + | Author | [facility] (Historical as of | | | 10-08-18) | + + + | Organization | [facility] (Historical as of | | | 10-08-18) | + + + | Address | Unknown | + + + | Phone | Unavailable | + + + Support + + + + + | Name | Relationship | Address | Phone | + + + + + | Detailed,Message | ECON | Unknown | | + + + + + | Tres Devlin | ECON | [address] | | | | | [place] [address] | | + + + + + | Kat Garcia | ECON | Unknown | | + + + + + Care Team Providers + +------+ + | Care Rattle Leak And Squeak Repairer Name | Role | Phone | + +------+ + | Jas Myers MD | PP | | + +------+ + Allergies + + + + + + | Active Allergy | Reactions | Severity | Noted | Comments | | | | | Date | | + + + + + + | Varenicline | Nausea and Vomiting | Low | 07/19/19 | | | | | | 12 | | + + + + + + | Penicillins | Other (See Comments) | Medium | 07/19/19 | Unknown | | | | | 12 | | + + + + + + | Bupropion Hcl | Other (See Comments) | Medium | 07/19/19 | Thyroid storm | | | | | 12 | | + + + + + + Current Medications + + +-------+---------+------+------+-------+ | Prescription | Sig. | Disp. | Refills | Star | End | Statu | | | | | | t | Date | s | | | | | | Date | | | + + +-------+---------+------+------+-------+ | atorvastatin | Take 10 mg by mouth | | | | | Activ | | (LIPITOR) 10 MG | daily. | | | | | e | | tablet | | | | | | | + + +-------+---------+------+------+-------+ | amitriptyline | Take 100 mg by mouth | | | | | Activ | | (ELAVIL) 100 MG | nightly. | | | | | e | | tablet | | | | | | | + + +-------+---------+------+------+-------+ | levothyroxine | Take 125 mcg by | | | | | Activ | | (SYNTHROID, | mouth daily. | | | | | e | | LEVOTHROID) 125 MCG | | | | | | | | tablet | | | | | | | + + +-------+---------+------+------+-------+ | Cholecalciferol | Take by mouth. | | | | | Activ | | (VITAMIN D) 1999 | | | | | | e | | UNITS CAPS | | | | | | | + + +-------+---------+------+------+-------+ | potassium chloride | Take 8 mEq by mouth | | | | | Activ | | (KLOR-CON) 8 MEQ CR | daily. | | | | | e | | tablet | | | | | | | + + +-------+---------+------+------+-------+ Active Problems + + + | Problem | Noted Date | + + + | Other chronic postoperative pain | 06/07/2013 | + + + + + | Last Assessment & Plan: This patient has [...] for followup and reevaluation. | + + + + + | Lumbar postlaminectomy syndrome | 06/07/2013 | + + + + + | Last Assessment & Plan: Please see discussion under chronic | | postoperative pain. | + + Social History + +-------+ +--------+------+ | Tobacco Use | Types | Packs/Day | Years | Date | | | | | Used | | + +-------+ +--------+------+ | Never Assessed | | | | | + +-------+ +--------+------+ + + + | Sex Assigned at | Date Recorded | | | | + + + | Not on file | | + + + Last Filed Vital Signs + + + + | Vital Sign | Reading | Time Taken | + + + + | Blood Pressure | 181/75 | 07/19/2011 3:09 PM PDT | + + + + | Pulse | 93 | 07/19/2011 3:09 PM PDT | + + + + | Temperature | 36.4 C (97.6 F) | 07/19/2011 3:09 PM PDT | + + + + | Respiratory Rate | 18 | 07/19/2011 3:09 PM PDT | + + + + | Oxygen Saturation | 100% | 07/19/2011 3:09 PM PDT | + + + + | Inhaled Oxygen | - | - | | Concentration | | | + + + + | Weight | 60.9 kg (134 lb 4.8 | 07/19/2011 3:09 PM PDT | | | oz) | | + + + + | Height | 165.1 cm (5' 5") | 07/19/2011 3:09 PM PDT | + + + + | Body Mass Index | 22.35 | 07/19/2011 3:09 PM PDT | + + + + Plan of Treatment + + + + + | Health Maintenance | Due Date | Last Done | Comments | + + + + + | Vaccine: | | | | | Dtap/Tdap/Td (1 - | 5 | | | | Tdap) | | | | + + + + + | Vaccine: Zoster (1 | | | | | of 2) | 6 | | | + + + + + | DEXA SCAN SCREENING | | | | | | 1 | | | + + + + + | Vaccine: | | | | | Pneumococcal 65+ | 1 | | | | Low/Medium Risk (1 | | | | | of 2 - PCV13) | | | | + + + + + | Vaccine: Influenza | | | | | (#1) | 9 | | | + + + + + Results Not on filefrom Last 3 Months Insurance + +--------+ +------+-------+ + | Payer | Benefi | Subscriber | Type | Phone | Address | | | t Plan | ID | | | | | | / | | | | | | | Group | | | | | + +--------+ +------+-------+ + | MEDICARE | MEDICA | [id number] | | | [address] | | | [place] | | | | [place] [address] | | | IP-OP | | | | | + +--------+ +------+-------+ + | EMELIA - TIER[place] - | MAC[place]AR | [id number] | | | [address] [address] | | [place] | [place] | | | | [place] | | | LIFE | | | | [phone] | + +--------+ +------+-------+ + + +--------+ +--------+ + + | Guarantor Name | Accoun | Relation to | Date | Phone | Billing Address | | | t Type | Patient | of | | | | | | | | | | + +--------+ +--------+ + + | CHELSEY DEVLIN | Person | Self [birth year] Home: | [address] | | | al/Fam | | 1946 | [phone] [address] [place] | | | [place] | | | [phone] | [phone] | + +--------+ +--------+ + +
--- OUTSIDE RECORDS SUMMARY | ~2018-11-25 | XMS | Encounter Summary ---
Demographics + + + | Address | [address] | | | [place] [address] | + + + | Home Phone | | + + + | Preferred Language | Unknown | + + + | Marital Status | | + + + | Jehovah'S Witness Affiliation | Unknown | + + + | Race | Unknown | + + + | Ethnic Group | Unknown | + + + Author + + + | Author | [facility] | | | and [place] | + + + | Organization | [facility] | | | and [...] [place], [place] | | | | | [address] | | + + + + + | Kat Garcia | ECON | [address] | | | | | [place], [place] | | | | | [address] | | + + + + + Care Team Providers + +------+ + | Care Health Safety And Environment Manager Name | Role | Phone | + [...] Authorized | | Radiology | Diagnoses | Morasch, | [facility] | | | | | Disorder of | Jose Del Castillo MD | [address] | | | | | rotator | [address] | [place], | | | | | cuff | [address] [place] | [place] | | | | | syndrome of | [place] | [address] | | | | | right | [address] | Phone: | | | | | shoulder and | Phone: | [phone] | | | | | allied | [phone] | Fax: | | | | | disorder | Fax: | [phone] | | | | | Procedures | [phone] | | | | | | MRI Shoulder | | | | | | | Right | | | | | | | Arthrogram w | | | | | | | Contrast | | | + +--------+ + + + + Reason for Visit + + + | Reason | Comments | + + + | Referral (Follow up) | | + + + Encounter Details +--------+ + + + + | Date | Type | Department | Care Team | Description | +--------+ + + + + | 10/31/ | Telephone | [facility] | Jose Zhao, | Referral (Follow up) | | 2019 | | MEDICINE [place] | [address] | | | | | [address] | [place] | | | | | [place] | [address] | | | | | [address] | | | | | | [phone] | | | +--------+ + + + [...] [place] | | | | | | [address] | | | | | | | | | | | | [place] | | +--------+ + + + + | 12/06/ | Appointment | Radiology | Jose Zhao, | | | 2018 | | | [address] | | | | | | [place] | | | | | | [address] | | | | | | | | +--------+ + + + + | 12/07/ | Office | Orthopedic Surgery | Jose Zhao, | | | 2018 | Visit | | [address] | | | | | | [place] | | | | | | [address] | | | | | | | | | | | | Carlos Nguyễn | | | | | | MD [address] | | | | | | [address] | | | | | | [place] [address] | | | | | | [phone] | | | | | | | | +--------+ + + + + | 02/27/ | Office | Family Medicine | Jose Zhao, | | | 2020 | Visit | | [address] | | | | | | [place] | | | | | | [address] | | | | | | | | +--------+ + + + + + +--------+ + + | Name | Priori | Associated Diagnoses | Order Schedule | | | ty | | | + +--------+ + + | MRI Shoulder Right Arthrogram w | Routin | Disorder of | Expected: | | Contrast | e | rotator cuff | 10/31/2018, Expires: | | | | syndrome of right | 11/01/2019 | | | | shoulder and allied | | | | | disorder | | + +--------+ + + documented as of this encounter Visit Diagnoses + + | Diagnosis | + + | 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
--- OUTSIDE RECORDS SUMMARY | ~2018-11-25 | XMS | Encounter Summary ---
Demographics + + + | Address | [address] | | | [place] [address] | + + + | Home Phone | | + + + | Preferred Language | Unknown | + + + | Marital Status | | + + + | Samaritan Affiliation | Unknown | + + + | Race | Unknown | + + + | Ethnic Group | Unknown | + + + Author + + + | Author | [facility] | | | and [place] | + + + | Organization | [facility] | | | and [place] | [...] [place], [place] | | | | | [address] | | + + + + + | Kat Garcia | ECON | [address] | | | | | [place], [place] | | | | | [address] | | + + + + + Care Team Providers + +------+ + | Care Science Technicians Name | Role | Phone | + [...] | | | | | [place] [address] | [address] | | | | | [phone] | | | +--------+ + + + [...] [place] | | | | | | [address] | | | | | | | | | | | | [place] | | +--------+ + + + + | 12/06/ | Appointment | Radiology | Jose Zhao, | | | 2018 | | | [address] | | | | | | [place] | | | | | | [address] | | | | | | | | +--------+ + + + + | 12/07/ | Office | Orthopedic Surgery | Jose Zhao, | | | 2018 | Visit | | [address] | | | | | | [place] | | | | | | [address] | | | | | | | | | | | | Carlos Nguyễn | | | | | | MD [address] | | | | | | [place] | | | | | | [place] [address] | | | | | | [phone] | | | | | | | | +--------+ + + + + | 02/27/ | Office | Family Medicine | Jose Zhao, | | | 2019 | Visit | | [address] | | | | | | [place] | | | | | | [address] | | | | | | | [...]
--- OUTSIDE RECORDS SUMMARY | ~2018-11-25 | XMS | Encounter Summary ---
Demographics + + + | Address | [address] | | | [place] [address] | + + + | Home Phone | | + + + | Preferred Language | Unknown | + + + | Marital Status | | + + + | Mosque Affiliation | Unknown | + + + | Race | Unknown | + + + | Ethnic Group | Unknown | + + + Author + + + | Author | [facility] | | | and [place] | + + + | Organization | [facility] | | | and [place] | [...] [place], [place] | | | | | [address] | | + + + + + | Kat Garcia | ECON | [address] | | | | | [place], [place] | | | | | [address] | | + + + + + Care Team Providers + +------+ + | Care Cloth Printing Back Tender Name | Role | Phone | + +------+ + | Jose Zhao MD | PCP | | + +------+ + Reason for Visit + + + | Reason | Comments | + + + | New Patient | | + + + | Shoulder Pain | Right | + + + Evaluate & Treat (Routine) + + + + + + + | Status | Reason | Specialty | Diagnoses / | Referred By | Referred To | | | | | Procedures | Contact | Contact | + + + + + + + | Authorized | Specialty | Orthopedic | Diagnoses | [facility], [facility] | | Services | Surgery | Disorder of | Jose Del Castillo MD | Orthopedic | | | Required | | rotator | [address] | [address] | | | | | cuff | [address] [place] | [address] | | | | | syndrome of | [place], [place] | [place], | | | | | right | [address] | [place] | | | | | shoulder and | Phone: | [phone] | | | | | allied | [phone] | Phone: | | | | | disorder | Fax: | [phone] | | | | | | [phone] | Fax: | | | | | | | [phone] | + + + + + + + Encounter Details +--------+---------+ + + + | Date | Type | Department | Care Team | Description | +--------+---------+ + + + | 11/07/ | Office | [facility] | Jose Zhao, | Primary | | 2019 | Visit | ORTHOPEDIC SURGERY | [address] | osteoarthritis of | | | | [address] [facility] | [place], [place] | right shoulder | | | | [place], [place] | [address] | (Primary Dx); | | | | [address] | | Impingement syndrome | | | | [phone] | Carlos Nguyễn | of right shoulder | | | | | MD [address] | | | | | | [facility] | | | | | | [place] [address] | | | | | | [phone] | | | | | | | | +--------+---------+ + + + Social History [...] + + + | Blood Pressure | - | - | + + + + | Pulse | - | - | + + + + | Temperature | - | - | + + + + | Respiratory Rate | - | - | + + + + | Oxygen Saturation | - | - | + + + + | Inhaled Oxygen | - | - | | Concentration | | | + + + + | Weight | 69 kg (152 lb 1.9 | 11/07/2018 1256 PDT | | | oz) | | + + + + | Height | 165.1 cm (5' 5") | 11/07/2018 1256 PDT | + + + + | Body Mass Index | 25.31 | 11/07/2018 1256 PDT | + + + + documented in this encounter Patient Instructions Patient Instructions Carlos Nguyễn MD - 11/07/2018 13:00 PDT Osteoarthritis: Injections and Surgery Talk with your healthcare provider about your treatment options. Injections or surgery may help if you have pain or movement problems that severely limit yo ur activities. Your healthcare provider can tell you more about these treatment choices and their risks and complications. Injections Medicine can be injected directly into the affected joint. These shots take a few minutes a nd are done in your healthcare provider s office: Corticosteroid or steroidinjections may ease swelling and pain. The medicine is inject ed into the joint for example, the knee or hip. Steroid injections do have risks, so healt hcare providers limit the number of injections used in any one joint. Lubricant supplementation injections use hyaluronic acid, a substance similar to one fou nd naturally in the joint. It may help the joint work more smoothly. These injections are on ly for osteoarthritis in the knees. Surgery Choices for surgery include: Arthroscopy.The surgeon looks at and works inside the joint using special tiny tools put through very small incisions. The cartilage is smoothed. Any pieces of cartilage that burk ve broken off are removed. Total joint replacement. The entire joint is taken out and replaced with a manmade joint using metal, ceramic, or plastic. This is most often done with the knee or hip joint. Other surgery. There are other surgical procedures specific to certain joints. For examp le, joint resurfacing may be done on the hip joint. Date Last Reviewed: 07/23/[id number] [employer] [place] [address], [place] [address]. All righ ts reserved. This information is not intended as a substitute for professional medical care. Always follow your healthcare professional's instructions. documented in this encounter Progress Notes Carlos Nguyễn MD - 11/07/2018 1300 PDTFormatting of this note might be differe nt from the original. [facility] HISTORY AND PHYSICAL EXAMINATION Pt. Name/Age/: Chelsey Devlin 73 y.o. 1945 Primary Care Physician: Jose Zhao Chief Complaint/Reason for Visit: New Patient and Shoulder Pain (Right) History of Present Illness: The patient is a pleasant 73 y.o. female who presents with righ t shoulder pain. This is bothered her for the last 3 years. She states that she has had mu ltiple falls over the years. She has had at least 3 falls and thinks that these caused her shoulder pain. Of note, she has had no previous shoulder surgery. She reports that she has previously tried anti-inflammatories, ice, and heat for shoulder pain. She did see a physi anna therapist who refused to work on her. She thought that she had a rotator cuff tear and did not want to make it worse. She has not had any steroid injections. She states that her pain is a 6 out of 10 at baseline and a 10 out of 10 at its worst. It has been the same ov er time. She is able to do some of her normal daily activities. She quit using tobacco 4 y ears ago. Of note, some of the pain is anterior, some of his lateral, and some of it is pos terior. She even has some pain in the axilla. Using her arm and lifting things seems to ca use most pain for her. Past Medical History: Past Medical History: Diagnosis Date Arthritis Asthma 2004 diagnosed 2004 Cataract Depression Diabetes mellitus (HCC) Encounter for blood transfusion Fall For the last year GI bleed H/O Graves' disease Heart murmur Hyperlipidemia Hypertension Hypokalemia Hypothyroid Insomnia Lumbar back pain with radiculopathy affecting lower extremity Mild CAD and moderate abdominal aortic calcific atherosclerosis Non-specific colitis Osteoporosis Sprain of left hand Stress incontinence Vitamin D deficiency Past Surgical History: Procedure Laterality Date APPENDECTOMY 1971 cholecystomy 1971 DILATION AND CURETTAGE OF UTERUS EAR SURGERY EYE SURGERY HYSTERECTOMY LUMBAR SPINE SURGERY 09/15/2016 At [facility] 2008---2011 THYROIDECTOMY 2002 TONSILLECTOMY Allergies: Allergies Allergen Reactions Bupropion Other (See Comments) Thyroid storm Penicillins Other (See Comments) Unknown Metformin Singulair [Montelukast] Varenicline Nausea And Vomiting Current Medications: Current Outpatient Medications Medication Sig Dispense Refill albuterol (PROVENTIL HFA) 90 mcg/puff inhaler Inhale 2 puffs into the lungs every 4 ivonne rs as needed for Wheezing or Shortness of Breath. 3 Inhaler 3 alendronate (FOSAMAX) 35 mg tablet Take 1 tablet by mouth every 7 days. 90 tablet 1 amitriptyline (ELAVIL) 100 MG tablet Daily. aspirin 81 mg EC tablet Take 81 mg by mouth Daily. atorvaSTATin (LIPITOR) 10 mg tablet Lipitor 10 mg tablet Take 1 tablet every day by oral route. celecoxib (CELEBREX) 100 mg capsule Cholecalciferol (VITAMIN D-3) 5000 units CAPS Take by mouth Daily. glipiZIDE (GLUCOTROL) 5 mg tablet Take 5 mg by mouth 2 times daily (before meals). hydroCHLOROthiazide (HYDRODIURIL) 12.5 MG tablet hydrochlorothiazide 12.5 mg tablet Take 1 tablet every day by oral route. ketoconazole (NIZORAL) 2% cream Apply topically Daily. levothyroxine (SYNTHROID) 137 MCG tablet Take 1 tablet by mouth every morning (before b reakfast). 90 tablet 1 lisinopril-hydrochlorothiazide (PRINZIDE,ZESTORETIC) 20-12.5 MG per tablet Take 1 table t by mouth Daily. metoprolol succinate (TOPROL XL) 25 mg 24 hr tablet Take 1 tablet by mouth Daily. 90 ta blet 1 oxybutynin (DITROPAN XL) 5 mg 24 hr tablet One po qd 90 tablet 1 PARoxetine (PAXIL) 10 mg tablet Take 1 tablet by mouth every morning. 90 tablet 0 potassium chloride (KLOR-CON) 10 mEq CR tablet Take 1 tablet by mouth Daily. 90 tablet 1 rosuvastatin (CRESTOR) 10 mg tablet Take 1 tablet by mouth nightly. 90 tablet 1 Current Facility-Administered Medications Medication Dose Route Frequency Provider Last Rate Last Dose triamcinolone acetonide (KENALOG-40) 40 mg/mL injection 40 mg 40 mg Intra-articular On ce Carlos Nguyễn MD Family History: Family History Problem Relation Age of Onset Arthritis Mother Early Mother 58 High blood pressure Mother Thyroid disease Mother Graves disease Heart attack Father 92 Arthritis Sister High blood pressure Sister Depression Sister Other (see comment) Sister 73 CVA Arthritis Brother Cancer Brother oral Substance abuse Brother Asthma Daughter Depression Daughter Miscarriages / stillbirths Daughter Stroke Daughter * Brother sudden Stroke Brother Social History: Social History Socioeconomic History Marital status: Spouse name: Not on file Number of children: Not on file Years of education: Not on file Highest education level: Not on file Social Needs Financial resource strain: Not on file Food insecurity - worry: Not on file Food insecurity - inability: Not on file Transportation needs - medical: Not on file Transportation needs - non-medical: Not on file Occupational History Not on file Tobacco Use Smoking status: Former Smoker Packs/day: 3.00 Years: 35.00 Pack years: 105.00 Start date: 1966 Last attempt to quit: 10/04/2012 Years since quittin.0 Smokeless tobacco: Never Used Substance and Sexual Activity Alcohol use: Not Currently Drug use: Not on file Sexual activity: Not on file Other Topics Concern Not on file Social History Narrative Not on file Review of Systems All of these are negative unless otherwise marked Eyes: [] Double vision [] Glasses/contacts [] Failing vision Respiratory: [x] Asthma/Wheezing [] Pneumonia [] Night sweats [x] Shortness of breath [x] Chronic cough [] Coughing up blood [] Exposure to tuberculosis Cardiovascular: [] Heart Problems [x] Hypertension [] Heart murmur [x] Palpitations [] Rheumatic fever [] Phlebitis [] Chest pain [] Ankle swelling [] Leg cramps [] Racin g heart [] Skipping beats [] Blood clots Urinary Tract: [] Painful urination [] Kidney Stones [x] Any urine leakage [] Weak urine stream [] Night urination [] Urine infections [] Bedwetting [] Blood in urine Ear/Nose/Throat: [] Frequent Colds [] Sinus Disease [x] Nose obstruction [] Sneezing Spells [x] Change in taste [x] Artificial teeth [] Ears ringing [] Ear pain [] Hearing loss [] Teeth problems [] Hoarseness [] Neck swelling [] Sore throat [] Congestion [x] Nosebleeds [] Nasal allergies Gastrointestinal: [] Abdominal pain [] Heartburn [] Blood from rectum [] Colitis [] Gallbladder problems [x] Troub le swallowing [] Bloated stomach [x] Change in stools [] Vomiting blood [] Nausea [] Hemorrhoids [] Jaundice [ ] Hepatitis [] Diarrhea [] Constipation [] Diverticulitis Musculoskeletal: [] Physical handicaps [x] Back or shoulder pain []Rheumatoid disease [] Osteoarthritis [] Joint pain [] Joint swelling []Gout [x] Leg cramps at night Skin: [] Skin rashes [] Itching/Burning [] Skin bruises easil y [] Artificial tanning [x] Skin cancer [] Hair loss [] Changes in moles Psychiatric: [] Depression [] Suicidal thoughts [x] Sleep pattern changes [x] Appetite changes [] Recent counseling [x] Nervousness/anxiety [x] Physical violence [x] Marital problems Neurological: [x] Headaches [] Seizures [] Stroke/TIA [] Faintness [x] Tremors [] Numbness [] Dizziness [x] Changes in handwriting [x] Memory loss [] Shooting pains Endocrine: [x] Thyroid [x] Diabetes Systemic: [x]Weight loss/gain (over 10 lbs) []Fever/chills []Fatigue [x] Sleeping Difficulties [] Speech change [] Voice change Admission Weight: Weight: 69 kg (152 lb 1.9 oz) BMI: Body mass index is 25.31 kg/m. Physical Examination: Ht 1.651 m (5' 5") | Wt 69 kg (152 lb 1.9 oz) | BMI 25.31 kg/m General: Alert, oriented, no acute distress HEENT: Normocephalic, atraumatic Cardiovascular: Regular rate and rhythm Respiratory: Breathing normally at a regular rate Ortho Exam Right Shoulder Exam Right Left Forward Flexion 110 (150 passive) 150 Abduction 100 150 External Rotation 45 45 Internal rotation Belt T12 Tender to Palpation: subacromial joint, biceps tendon, scapulo-thoracic External Rotation Strength 4/5 Internal Rotation Strength 5/5 Hawkin's Positive Neer's Positive Puja's Positive Speed's Negative Yergason's Negative Radial pulse 2+. Sensation intact to light touch in the first dorsal webspace, and the pads of the small and index fingers. Able to flex and extend the thumb at the interphalangeal phan int, make an "ok" sign, adduct and abduct the fingers, and oppose the thumb to the small fin dara. Diagnostic Studies: Imaging 3 views of the right shoulder dated 11/04/2018 in addition to an axillary lateral of the rig ht shoulder from today reviewed. The patient has mild to moderate glenohumeral osteoarthros is. The humeral head is centered on the glenoid. There are no fractures or dislocations. Labs- Lab Results Component Value Date NA 136 11/07/2018 K 4.1 11/07/2018 CL 101 11/07/2018 CO2 26 11/07/2018 ANIONGAP 9 11/07/2018 GLU 183 (H) 11/07/2018 BUN 14 11/07/2018 CREA 0.90 11/07/2018 GFRNONAA >60 11/07/2018 CALCIUM 8.6 11/07/2018 ALBUMIN 3.6 11/07/2018 BILITOT 0.4 11/07/2018 TOTALPROTEIN 7.1 11/07/2018 AST 35 11/07/2018 ALT 59 11/07/2018 ALKPHOS 125 (H) 11/07/2018 WBC 7.8 11/07/2018 HGB 14.5 11/07/2018 HCT 43.2 11/07/2018 MCV 81.2 (L) 11/07/2018 PLT 322 11/07/2018 Assessment and Plan: 1. Primary osteoarthritis of right shoulder XR Shoulder Right 1 Vw triamcinolone acetonide (KENALOG-40) 40 mg/mL injection 40 mg 2. Impingement syndrome of right shoulder triamcinolone acetonide (KENALOG-40) 40 mg/mL in jection 40 mg The patient is a pleasant 73 y.o. female who presents with right shoulder osteoarthritis wi th rotator cuff symptoms. Treatment options were discussed with the patient including non-op erative treatment modalities. Considering the nature of the patient's condition, decision wa s made to proceed with a right subacromial injection. The risks, benefits, and alternatives to injection were discussed with the patient. She is currently in the process of getting a n MRI obtained. That is scheduled for December 02, 2018. I will plan on seeing her back aft er the MRI. The goal of the injection is to hopefully give her some pain relief in the mean time and potentially even significantly help with her symptoms. We will see how she does wi th that. Risks, benefits and alternatives to injection were discussed with the patient. All of the p atient's questions were answered regarding the procedure. Consent was obtained. The patient agreed to undergo an injection of the Right shoulder. The area was prepared sterilely using Betadine. A cold spray was used to numb the skin. 5 mLs of 1% lidocaine and 40 mg of kenalog were injected in the standard fashion. This was well tolerated by the patient. Follow-up: Return After CT scan. with no x-ray Portions of this report were transcribed using voice recognition software. Every effort wa s made to ensure accuracy; however, inadvertent computerized field laboratory operator errors may be pre sent. I appreciate the opportunity to help with the management of this patient. Carlos Nguyễn MD documented in this encounter Plan of [...] [place] | | | | | | [address] | | | | | | | | | | | | [place] | | +--------+ + + + + | 12/06/ | Appointment | Radiology | Jose Zhao, | | | 2018 | | | [address] | | | | | | [place] | | | | | | [address] | | | | | | | | +--------+ + + + + | 12/07/ | Office | Orthopedic Surgery | Jose Zhao, | | | 2018 | Visit | | [address] | | | | | | [place] | | | | | | [address] | | | | | | | | | | | | Carlos Nguyễn | | | | | | MD [address] | | | | | | [address] | | | | | | [place] [address] | | | | | | [phone] | | | | | | | | +--------+ + + + + | 02/27/ | Office | Family Medicine | Jose Zhao, | | | 2019 | Visit | | [address] | | | | | | [place] | | | | | | [address] | | | | | | | | +--------+ + + + + documented as of this encounter Results XR Shoulder Right 1 [...] + | Diagnosis | + + | Primary osteoarthritis of right shoulder - Primary Primary localized osteoarthrosis, | | shoulder region | + + | Impingement syndrome of right shoulder Other affections of shoulder region, not | | elsewhere classified | + + documented in this encounter Administered Medications + +--------+ +-------+------+ + | Medication Order | MAR | Action | Dose | Rate | Site | | | Action | Date | | | | + +--------+ +-------+------+ + | triamcinolone acetonide | Given | 11/08/19 | 40 mg | | Shoulder | | (KENALOG-40) 40 mg/mL injection | | 19 13:30 | | | -Right | | 40 mg 40 mg, Intra-articular, | | PDT | | | | | ONCE, 11/07/18 at 1515, For 1 | | | | | | | dose, Shake well. Not for IV | | | | | | | use., | | | | | | + +--------+ +-------+------+ + +---+---+ | | | +---+---+ documented in this encounter
--- OUTSIDE RECORDS SUMMARY | ~2018-11-25 | XMS | Encounter Summary ---
Demographics + + + | Address | [address] | | | [place] [address] | + + + | Home Phone | | + + + | Preferred Language | Unknown | + + + | Marital Status | | + + + | Rastafari Affiliation | Unknown | + + + | Race | Unknown | + + + | Ethnic Group | Unknown | + + + Author + + + | Author | [facility] | | | and [place] | + + + | Organization | [facility] | | | and [...] [place], [place] | | | | | [address] | | + + + + + | Kat Garcia | ECON | [address] | | | | | [place], [place] | | | | | [address] | | + + + + + Care Team Providers + +------+ + | Care Stamps Or Coins Salesperson Name | Role | Phone | + +------+ + | Jose Zhao MD | PCP | | + +------+ + Reason for Visit + + + | Reason | Comments | + + + | Imaging Only | | + + + Encounter Details +--------+ + + + + | Date | Type | Department | Care Team | Description | +--------+ + + + + | 11/17/ | Telephone | [facility] | Jose Zhao, | Imaging Only | | 2019 | | [facility] | [address] | | | | | [address] | [place] | | | | | [place] | [address] | | | | | [address] | | | | | | [phone] | | | +--------+ + + + [...] [place] | | | | | | [address] | | | | | | | | | | | | Rad, [facility] | | +--------+ + + + + | 12/06/ | Appointment | Radiology | Jose Zhao, | | | 2018 | | | [address] | | | | | | [place] | | | | | | [address] | | | | | | | | +--------+ + + + + | 12/07/ | Office | Orthopedic Surgery | Jose Zhao, | | | 2018 | Visit | | [address] | | | | | | [place] | | | | | | [address] | | | | | | | | | | | | Carlos Nguyễn | | | | | | MD [address] | | | | | | [address] | | | | | | [place] [address] | | | | | | [phone] | | | | | | | [...]
--- OUTSIDE RECORDS SUMMARY | ~2018-11-25 | XMS | Encounter Summary ---
Demographics + + + | Address | [address] | | | [place] [address] | + + + | Home Phone | | + + + | Preferred Language | Unknown | + + + | Marital Status | | + + + | Anglican Affiliation | Unknown | + + + | Race | Unknown | + + + | Ethnic Group | Unknown | + + + Author + + + | Author | [facility] | | | and [place] | + + + | Organization | [facility] | | | and [...] [place], [place] | | | | | [address] | | + + + + + | Kat Garcia | ECON | [address] | | | | | [place], [place] | | | | | [address] | | + + + + + Care Team Providers + +------+ + | Care Tie Up Worker Name | Role | Phone | + [...] | syndrome of | [place], [place] | [place], | | | | | right | [address] | [place] | | | | | shoulder and | Phone: | [phone] | | | | | allied | [phone] | Phone: | | | | | disorder | Fax: | [phone] | | | | | | [phone] | Fax: | | | | | | | [phone] | + + + + + + + Reason for Visit + + + | Reason | Comments | + + + | Shoulder Pain | | + + + Encounter Details +--------+ + + + + | Date | Type | Department | Care Team | Description | +--------+ + + + + | 10/06/ | Telephone | [facility] | Jose Zhao, | Shoulder Pain | | 2019 | | [facility] | [address] | | | | | [address] | [place] | | | | | [place] | [address] | | | | | [address] | | | | | | [phone] | | | +--------+ + + + [...] [place] | | | | | | [address] | | | | | | | | | | | | [place] | | +--------+ + + + + | 12/06/ | Appointment | Radiology | Jose Zhao, | | | 2018 | | | [address] | | | | | | [place] | | | | | | [address] | | | | | | | | +--------+ + + + + | 12/07/ | Office | Orthopedic Surgery | Jose Zhao, | | | 2018 | Visit | | [address] | | | | | | [place] | | | | | | [address] | | | | | | | | | | | | Carlos Nguyễn | | | | | | MD [address] | | | | | | [address] | | | | | | [place] [address] | | | | | | [phone] | | | | | | | | +--------+ + + + + | 02/27/ | Office | Family Medicine | Jose Zhao, | | | 2020 | Visit | | [address] | | | | | | [place] | | | | | | [address] | | | | | | | | +--------+ + + + + + +--------+ + + | Name | Priori | Associated Diagnoses | Order Schedule | | | ty | | | + +--------+ + + | * [facility] [place] Orthopedic Surgery - | Routin | Disorder of | Ordered: 10/12/2018 | | AMB Referral | e | rotator cuff | | | | | syndrome of right | | | | | shoulder and allied | | | | | disorder | | + +--------+ + + documented as of this encounter Visit Diagnoses + + | Diagnosis | + + | 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
--- OUTSIDE RECORDS SUMMARY | ~2018-11-25 | XMS | Encounter Summary ---
Demographics + + + | Address | [address] | | | [place] [address] | + + + | Home Phone | | + + + | Preferred Language | Unknown | + + + | Marital Status | | + + + | Episcopal Affiliation | Unknown | + + + | Race | Unknown | + + + | Ethnic Group | Unknown | + + + Author + + + | Author | [facility] | | | and hCaloana | + + + | Organization | [facility] | | | and [place] | [...] [place], [place] | | | | | [address] | | + + + + + | Kat Garcia | ECON | [address] | | | | | [place], [place] | | | | | [address] | | + + + + + Care Team Providers + +------+ + | Care Ground School Instructor Name | Role | Phone | + +------+ + | Jose Zhao MD | PCP | | + +------+ + Reason for Visit + + + | Reason | Comments | + + + | Referral | | + + + Encounter Details +--------+ + + + + | Date | Type | Department | Care Team | Description | +--------+ + + + + | 10/13/ | Telephone | [facility] | Jose Zhao, | Referral | | 2019 | | [facility] | [address] | | | | | [address] | [place] | | | | | [place] | [address] | | | | | [address] | | | | | | [phone] | | | +--------+ + + + [...] [place] | | | | | | [address] | | | | | | | | | | | | Julio C[place], [place] | | +--------+ + + + + | 12/06/ | Appointment | Radiology | Jose Zaho, | | | 2018 | | | [address] | | | | | | [place] | | | | | | [address] | | | | | | | | +--------+ + + + + | 12/07/ | Office | Orthopedic Surgery | Jose Zhao, | | | 2018 | Visit | | [address] | | | | | | [place] | | | | | | [address] | | | | | | | | | | | | Carlos Nguyễn | | | | | | MD [address] | | | | | | [place] | | | | | | [place] [address] | | | | | | [phone] | | | | | | | | +--------+ + + + + | 02/27/ | Office | Family Medicine | Jose Zhao, | | | 2019 | Visit | | MD [address] | | | | | | [place] | | | | | | [address] | | | | | | | | +--------+ + + + + documented as of this encounter Visit Diagnoses Not on filedocumented in this encounter"
--- OUTSIDE RECORDS SUMMARY | ~2018-11-25 | XMS | Encounter Summary ---
Demographics + + + | Address | [address] | | | [place] [address] | + + + | Home Phone | | + + + | Preferred Language | Unknown | + + + | Marital Status | | + + + | Yarsani Affiliation | Unknown | + + + | Race | Unknown | + + + | Ethnic Group | Unknown | + + + Author + + + | Author | [facility] | | | and [place] | + + + | Organization | [facility] | | | and [place]ana [...] [place], [place] | | | | | [address] | | + + + + + | Kat Garcia | ECON | [address] | | | | | [place], [place] | | | | | [address] | | + + + + + Care Team Providers + +------+ + | Care Trichologist Name | Role | Phone | + +------+ + | Jose Zhao MD | PCP | | + +------+ + Encounter Details +--------+ + + + + | Date | Type | Department | Care Team | Description | +--------+ + + + + | 11/16/ | Hospital | [facility] | Eriberto Milner, | Chronic obstructive | | 2019 | Encounter | MED CTR PULMONARY | MD [address] | pulmonary disease, | | | | [address] | [place], [place] | unspecified COPD | | | | [place], | [address] | type (HCC) | | | | [place] [address] | | | | | | [phone] | | | +--------+ + + + [...] [place] | | | | | | [id number] | | | | | | | | | | | | [place] | | +--------+ + + + + | 12/06/ | Appointment | Radiology | Jose Zhao, | | | 2018 | | | [address] | | | | | | [place] | | | | | | [address] | | | | | | | | +--------+ + + + + | 12/07/ | Office | Orthopedic Surgery | Jose Zhao, | | | 2018 | Visit | | [address] | | | | | | [place] | | | | | | [address] | | | | | | | | | | | | Carlos Nguyễn | | | | | | MD [address] | | | | | | [place] | | | | | | [place] [address] | | | | | | [phone] | | | | | | | | +--------+ + + + + | 02/27/ | Office | Family Medicine | Jose Zhao, | | | 2019 | Visit | | [address] | | | | | | [place] | | | | | | [address] | | | | | | | [...] | signed by: Eriberto Milner MD, 11/16/2018 12:01[facility] | | | [facility] | | | | | |IMPRESSION: Spirometry [...] MD 11/16/2018 | | |12:01 | | |[facility] | | + + + documented in this encounter Visit Diagnoses + + | Diagnosis | + + | Chronic obstructive pulmonary disease, unspecified COPD type (HCC) | + + documented in this encounter"
--- OUTSIDE RECORDS SUMMARY | ~2018-11-25 | XMS | Encounter Summary ---
Demographics + + + | Address | [address] | | | [place] [address] | + + + | Home Phone | | + + + | Preferred Language | Unknown | + + + | Marital Status | | + + + | Yarsanism Affiliation | Unknown | + + + | Race | Unknown | + + + | Ethnic Group | Unknown | + + + Author + + + | Author | [facility] | | | and Chaloana | + + + | Organization | [facility] | | | and Chaloana [...] [place], [place] | | | | | [address] | | + + + + + | Kat Garcia | ECON | [address] | | | | | [place], [place] | | | | | [address] | | + + + + + Care Team Providers + +------+ + | Care Color Print Inspector Name | Role | Phone | + +------+ + | Jose Zhao MD | PCP | | + +------+ + Reason for Visit + + + | Reason | Comments | + + + | Medication Refill | | + + + Encounter Details +--------+--------+ + + + | Date | Type | Department | Care Team | Description | +--------+--------+ + + + | 10/13/ | Refill | [facility] | Jose Zhao, | Medication Refill | | 2019 | | MEDICINE [place] | [address] | | | | | [address] | [place] | | | | | [place] | [address] | | | | | [address] | | | | | | [phone] | | | +--------+--------+ + + + Social History + +-------+ [...] [place] | | | | | | [address] | | | | | | | | | | | | [place] | | +--------+ + + + + | 12/06/ | Appointment | Radiology | Jose Zhao, | | | 2018 | | | [address] | | | | | | [place] | | | | | | [address] | | | | | | | | +--------+ + + + + | 12/07/ | Office | Orthopedic Surgery | Jose Zhao, | | | 2018 | Visit | | [address] | | | | | | [place] | | | | | | [address] | | | | | | | | | | | | Carlos Nguyễn | | | | | | MD [address] | | | | | | [place] | | | | | | [place] [address] | | | | | | [phone] | | | | | | | [...]
--- OUTSIDE RECORDS SUMMARY | ~2018-11-25 | XMS | Encounter Summary ---
Demographics + + + | Address | [address] | | | [place] [address] | + + + | Home Phone | | + + + | Preferred Language | Unknown | + + + | Marital Status | | + + + | Caodaism Affiliation | Unknown | + + + | Race | Unknown | + + + | Ethnic Group | Unknown | + + + Author + + + | Author | [facility] | | | and [place] | + + + | Organization | [facility] | [...] [place], [place] | | | | | [address] | | + + + + + | Kat Garcia | ECON | [address] | | | | | [place], [place] | | | | | [address] | | + + + + + Care Team Providers + +------+ + | Care Linen Sorter Name | Role | Phone | + [...] Results | | 2019 | | MEDICINE [place] | [address] | | | | | [address] | [place] | | | | | [place] | [address] | | | | | [address] | | | | | | [phone] | | | +--------+ + + + [...] [place] | | | | | | [address] | | | | | | | | | | | | [place] | | +--------+ + + + + | 12/06/ | Appointment | Radiology | Jose Zhao, | | | 2018 | | | [address] | | | | | | [place] | | | | | | [address] | | | | | | | | +--------+ + + + + | 12/07/ | Office | Orthopedic Surgery | Jose Zhao, | | | 2018 | Visit | | [address] | | | | | | [place] | | | | | | [address] | | | | | | | | | | | | Carlos Nguyễn | | | | | | MD [address] | | | | | | [place] | | | | | | [place] [address] | | | | | | [phone] | | | | | | | | +--------+ + + + + | 02/27/ | Office | Family Medicine | Jose Zhao, | | | 2019 | Visit | | MD [address] | | | | | | [place] | | | | | | [address] | | | | | | | | +--------+ + + + + documented as of this encounter Visit Diagnoses Not on filedocumented in this encounter"
--- OUTSIDE RECORDS SUMMARY | ~2018-11-25 | XMS | Encounter Summary ---
Demographics + + + | Address | [address] | | | [place] [address] | + + + | Home Phone | | + + + | Preferred Language | Unknown | + + + | Marital Status | | + + + | Scientologist Affiliation | Unknown | + + + | Race | Unknown | + + + | Ethnic Group | Unknown | + + + Author + + + | Author | [facility] | | | and [place] | + + + | Organization | [facility] | | | and [place]aloana [...] [place], [place] | | | | | [address] | | + + + + + | Kat Garcia | ECON | [address] | | | | | [place], [place] | | | | | [address] | | + + + + + Care Team Providers + +------+ + | Care Ticket Taker Ferryboat Name | Role | Phone | + [...] | | | | | [place] [address] | [id number] | | | | | [phone] | | | +--------+ + + + [...] [place] | | | | | | [address] | | | | | | | | | | | | [place] | | +--------+ + + + + | 12/06/ | Appointment | Radiology | Jose Zhao, | | | 2018 | | | [address] | | | | | | [place] | | | | | | [address] | | | | | | | | +--------+ + + + + | 12/07/ | Office | Orthopedic Surgery | Jose Zhao, | | | 2018 | Visit | | [address] | | | | | | [place] | | | | | | [address] | | | | | | | | | | | | Carlos Ngyuễn | | | | | | MD [address] | | | | | | [place] | | | | | | [place] [address] | | | | | | [phone] | | | | | | | | +--------+ + + + + | 02/27/ | Office | Family Medicine | Jose Zhao, | | | 2019 | Visit | | MD [address] | | | | | | [place] | | | | | | [address] | | | | | | | [...]
--- OUTSIDE RECORDS SUMMARY | ~2018-11-25 | XMS | Encounter Summary ---
Demographics + + + | Address | [address] | | | [place] [address] | + + + | Home Phone | | + + + | Preferred Language | Unknown | + + + | Marital Status | | + + + | Rastafari Affiliation | Unknown | + + + | Race | Unknown | + + + | Ethnic Group | Unknown | + + + Author + + + | Author | [facility] | | | and [place] | + + + | Organization | [facility] | | | and [...] [place], [place] | | | | | [address] | | + + + + + | Kat Garcia | ECON | [address] | | | | | [place], [place] | | | | | [address] | | + + + + + Care Team Providers + +------+ + | Care Weather Anchor Name | Role | Phone | + [...] + | 10/13/ | Telephone | [facility] | Jose Zhao, | Referral | | 2019 | | [facility] | [address] | | | | | [address] | [place] | | | | | [place] | [address] | | | | | [address] | | | | | | [phone] | | | +--------+ + + + [...] [place] | | | | | | [address] | | | | | | | | | | | | [place], [place] | | +--------+ + + + + | 12/06/ | Appointment | Radiology | Jose Zhao, | | | 2018 | | | [address] | | | | | | [place] | | | | | | [address] | | | | | | | | +--------+ + + + + | 12/07/ | Office | Orthopedic Surgery | Jose Zhao, | | | 2018 | Visit | | [address] | | | | | | [place] | | | | | | [address] | | | | | | | | | | | | Carlos Nguyễn | | | | | | MD [address] | | | | | | [place] | | | | | | [place] [address] | | | | | | [phone] | | | | | | | | +--------+ + + + + | 02/27/ | Office | Family Medicine | Jose Zhao, | | | 2019 | Visit | | MD [address] | | | | | | [place] | | | | | | [address] | | | | | | | | +--------+ + + + + documented as of this encounter Visit Diagnoses Not on filedocumented in this encounter"
--- OUTSIDE RECORDS SUMMARY | ~2018-11-25 | XMS | Clinical Summary ---
Demographics + + + | Address | [address] | | | [place] [address] | + + + | Home Phone | | + + + | Preferred Language | Unknown | + + + | Marital Status | | + + + | Jewish Affiliation | Unknown | + + + | Race | Unknown | + + + | Ethnic Group | Unknown | + + + Author + + + | Author | [facility] | | | 10-08-18) | + + + | Organization | [facility] ([facility] as [facility] | | | 10-08-18) [...] | | | | | [place] [address] | | + + + + + | Kat Garcia | ECON | Unknown | | + + + + + Care Team Providers + +------+ + | Care Hotel Housekeeper Name | Role | Phone | + [...] +------+-------+ + | MEDICARE | MEDICA | [id number] | | | [address] | | | [place] | | | | [place] [address] | | | IP-OP | | | | | + +--------+ +------+-------+ + | EMELIA - TIERRA - | MACIEAR | [id number] | | | [address] [address] | | [place] | [place] | | | | [place] | | | LIFE | | | | [address] | + +--------+ +------+-------+ + + +--------+ [...] | [place] | | | [address] | [address] | + +--------+ +--------+ + +
--- OUTSIDE RECORDS SUMMARY | ~2018-11-25 | XMS | Encounter Summary ---
Demographics + + + | Address | [address] | | | [place] [address] | + + + | Home Phone | | + + + | Preferred Language | Unknown | + + + | Marital Status | | + + + | Denominational Affiliation | Unknown | + + + | Race | Unknown | + + + | Ethnic Group | Unknown | + + + Author + + + | Author | [facility] | | | and [place] | + + + | Organization | [facility] | | | and [place] | [...] [place], [place] | | | | | [address] | | + + + + + | Kat Garcia | ECON | [address] | | | | | [place], [place] | | | | | [address] | | + + + + + Care Team Providers + +------+ + | Care Philosophy Specialist Name | Role | Phone | + +------+ + | Jose Zhao MD | PCP | | + +------+ + Reason for Visit + + + | Reason | Comments | + + + | Transfer Orders | | + + + Encounter Details +--------+ + + + + | Date | Type | Department | Care Team | Description | +--------+ + + + + | 08/29/ | Telephone | [facility] | Jose Zhao, | Transfer Orders | | 2019 | | MEDICINE [place] | [address] | | | | | [address] | [place] | | | | | [place] | [address] | | | | | [address] | | | | | | [phone] | | | +--------+ + + + [...] | | | | | | [place], [place] | | | | | | [address] | | | | | | | | | | | | Rad, [facility] | | +--------+ + + + + | 12/06/ | Appointment | Radiology | Jose Zhao, | | | 2018 | | | [address] | | | | | | [place], [place] | | | | | | [address] | | | | | | | | +--------+ + + + + | 12/07/ | Office | Orthopedic Surgery | Jose Zhao, | | | 2018 | Visit | | [address] | | | | | | [place] | | | | | | [address] | | | | | | | | | | | | Carlos Nguyễn | | | | | | MD [address] | | | | | | [place] | | | | | | [place] [address] | | | | | | [phone] | | | | | | | [...]
--- OUTSIDE RECORDS SUMMARY | ~2018-11-25 | XMS | Encounter Summary ---
Demographics + + + | Address | [address] | | | [place] [address] | + + + | Home Phone | | + + + | Preferred Language | Unknown | + + + | Marital Status | | + + + | Roman Catholic Affiliation | Unknown | + + + | Race | Unknown | + + + | Ethnic Group | Unknown | + + + Author + + + | Author | [facility] | | | and [place] | + + + | Organization | [facility] | | | and Ch[place]ana [...] [place], [place] | | | | | [address] | | + + + + + | Kat Garcia | ECON | [address] | | | | | [place], [place] | | | | | [address] | | + + + + + Care Team Providers + +------+ + | Care Decorating Kiln Operator Name | Role | Phone | + [...] Refill | | 2019 | | MEDICINE [place] | [address] | | | | | [address] | [place] | | | | | [place] | [address] | | | | | [address] | | | | | | [phone] | | | +--------+--------+ + + + [...] [place] | | | | | | [address] | | | | | | | | | | | | [place] | | +--------+ + + + + | 12/06/ | Appointment | Radiology | Jose Zhao, | | | 2018 | | | [address] | | | | | | [place] | | | | | | [address] | | | | | | | | +--------+ + + + + | 12/07/ | Office | Orthopedic Surgery | Jose Zhao, | | | 2018 | Visit | | [address] | | | | | | [place] | | | | | | [address] | | | | | | | | | | | | Carlos Nguyễn | | | | | | MD [address] | | | | | | [place] | | | | | | [place] [address] | | | | | | [phone] | | | | | | | [...]
--- OUTSIDE RECORDS SUMMARY | ~2018-11-25 | XMS | Encounter Summary ---
Demographics + + + | Address | [address] | | | [place] [address] | + + + | Home Phone | | + + + | Preferred Language | Unknown | + + + | Marital Status | | + + + | Druze Affiliation | Unknown | + + + | Race | Unknown | + + + | Ethnic Group | Unknown | + + + Author + + + | Author | [facility] | | | and [place] | + + + | Organization | [facility] | | | and [place] | [...] [place], [place] | | | | | [address] | | + + + + + | Kat Garcia | ECON | [address] | | | | | [place], [place] | | | | | [address] | | + + + + + Care Team Providers + +------+ + | Care Letterpress Setter Name | Role | Phone | + [...] + + | 08/29/ | Telephone | [facility] | Jose Zhao, | Transfer Orders | | 2019 | | MEDICINE [place] | [address] | | | | | [address] | [place] | | | | | [place] | [address] | | | | | [address] | | | | | | [phone] | | | +--------+ + + + [...] [place] | | | | | | [address] | | | | | | | | | | | | Rad, [facility] | | +--------+ + + + + | 12/06/ | Appointment | Radiology | Jose Zhao, | | | 2018 | | | [address] | | | | | | [place], [place] | | | | | | [address] | | | | | | | | +--------+ + + + + | 12/07/ | Office | Orthopedic Surgery | Jose Zhao, | | | 2018 | Visit | | [address] | | | | | | [place] | | | | | | [address] | | | | | | | | | | | | Carlos Nguyễn | | | | | | MD [address] | | | | | | [place] | | | | | | [place] [address] | | | | | | [phone] | | | | | | | [...]
--- OUTSIDE RECORDS SUMMARY | ~2018-11-25 | XMS | Encounter Summary ---
Demographics + + + | Address | [address] | | | [place] [address] | + + + | Home Phone | | + + + | Preferred Language | Unknown | + + + | Marital Status | | + + + | Worship Affiliation | Unknown | + + + | Race | Unknown | + + + | Ethnic Group | Unknown | + + + Author + + + | Author | [facility] | | | and [place] | + + + | Organization | [facility] | | | and [place] [...] [place], [place] | | | | | [address] | | + + + + + | Kat Garcia | ECON | [address] | | | | | [place], [place] | | | | | [address] | | + + + + + Care Team Providers + +------+ + | Care Rn Forensic Name | Role | Phone | + +------+ + | Jose Zhao MD | PCP | | + +------+ + Reason for Visit + + + | Reason | Comments | + + + | New Patient | | + + + | COPD | | + + + Evaluate & Treat [...] | | pulmonary | [address] | [place], | | | | | disease, | [place], [place] | [place] [address] | | | | | unspecified | [address] | Phone: | | | | | COPD type | Phone: | [phone] | | | | | ([facility]) | [phone] | Fax: | | | | | | Fax: | [phone] | | | | | | [phone] | | + + + + + + + Encounter Details +--------+---------+ + + + | Date | Type | Department | Care Team | Description | +--------+---------+ + + + | 11/01/ | Office | [facility] | Eriberto Milner, | Chronic obstructive | | 2019 | Visit | PULMONARY [address] | pulmonary disease, | | | | [place], | [place] | unspecified COPD | | | | [place] [address] | [address] | type (HCC) | | | | [phone] | | | +--------+---------+ + + + [...] + + + | Blood Pressure | 130/68 | 11/01/20181024 PDT | + + + + | Pulse | 74 | 11/01/20181024 PDT | + + + + | Temperature | - | - | + + + + | Respiratory Rate | - | - | + + + + | Oxygen Saturation | 97% | 11/01/20181024 PDT | + + + + | Inhaled Oxygen | - | - | | Concentration | | | + + + + | Weight | 69 kg (152 lb 1.9 | 11/01/20181024 PDT | | | oz) | | + + + + | Height | 165.1 cm (5' 5") | 11/01/2018 1025 PDT | + + + + | Body Mass Index | 25.31 | 11/01/2018 1025 PDT | + + + + documented in this encounter Patient Instructions Patient Instructions Eriberto Milner MD - 11/01/2018 10:30 PDT DiagnosingCOPD Your healthcare provider will use your past health history, a physical exam, andcertain t eststodiagnose COPD. Health history Your healthcare provider learns about your health history by asking questions. Topics inclu de: History of present illness. Tell your healthcare provider about your symptoms.Alsote ll him or her how long you have had them. Past medical and surgical history. Share other health problems and surgery you have had. Family history. Report serious health problems in close family members. This is especial ly true of any lung problems. Social and environmental history. The most important factor in COPD is whether you smoke or have smoked in the past. You should also tell your provider if you have been around seco ndhand smoke, harmful chemicals, or air pollution. Functional assessment. Report whether breathing gets in the way of your daily activities . Physical exam Your provider will examine you. He or she will check your heart and lungs with a stethoscop e. The focus will be on your airways, including your nose and throat. Diagnostic tests Pulmonary function testsmeasure the flow of air into and out of your lungs. They also check how muchair your lungs can hold. The most common pulmonary function test is spiromet ry. This measures how fast and how much air you can blow out (exhale). This test is importan t to help diagnose COPD. Pulse oximetryshows how much oxygen is in your blood (oxygen saturation). This may be done at rest. It may also be done during and after exercise. Arterial blood gas testsmeasure levels of oxygen and carbon dioxide in your blood. Chest X-raysshow the size and shape of your lungs. They can also show certain problems in the lungs. CTscansshow detailed images of the lungs. Date Last Reviewed: 11/23/201519996704-[address] [employer] [place] [address], [place] [address]. All righ ts reserved. This information is not intended as a substitute for professional medical care. Always follow your healthcare professional's instructions. documented in this encounter Progress Notes Eriberto Milner MD - 11/01/2018 1030 PDT Pulmonary Consult Note 11/01/2018 HPI Chelsey Devlin is a 73 y.o. female patient of Jose Zhao MD here today for evaluati on of COPD. The patient first noted troubles with their breathing at the age of [age]. At that time they presented with symptoms of dyspnea approximately 10 years ago. Since that time their sympt oms have showed little change. Recently Chelsey notes that their symptoms have RODRIGUEZ. Currently they reports their main symptoms at this point to be SOB. Chelsey are able to wal k 2-2.5 miles at their own pace on level ground before developing shortness of breath. The d istance walked is predominately limited by fatigue and dyspnea. One year ago, they feel that they could walk 2-2.5 miles. Triggers for their shortness of breath include stair. Relievi ng factors include resting. They do not exercise regularly. Chelsey are not currently enrolled in pulmonary rehabilitati on. They have not completed pulmonary rehabilitation in the past. The patient does cough chronically, and does produce scant mucous. The mucous is white in c olor. They have not had hemoptysis in the last 6 months. Treatments that they have been used in the past include as needed albuterol via metered-dos e inhaler. The patient has not tried other inhaled medications. She is currently using her Proventil inhaler approximately twice a day. Ms. Devlin has a prior history of "asthma". She states that she is never been told of COPD in the past. The patient changed primary care providers approximately 3 months ago. She sm oked 1.5 packs of cigarettes a day for 46 years quitting smoking in September 2012. They have not had to be hospitalized for breathing issues in the past. Chelsey has not requ ired intubation in the past. They have not had to go to the emergency room in the last year related to breathing problems. They have had 0 exacerbations in the past year requiring treatment with prednisone and 0 tr eatments with antibiotics. Chelsey has not been evaluated for nocturnal oxygen and does not qualify for use. Past Medical History Past Medical History: Diagnosis [...] Stress incontinence Vitamin D deficiency Past Surgical History Past Surgical History: Procedure Laterality Date APPENDECTOMY 1971 cholecystomy 1971 DILATION AND CURETTAGE OF UTERUS EAR SURGERY EYE SURGERY HYSTERECTOMY LUMBAR SPINE SURGERY 09/15/2016 At [email or web address] 2008---2011 THYROIDECTOMY 2002 TONSILLECTOMY Family History: Family History Problem Relation Age [...] * Brother sudden Stroke Brother Social History: She reports that she quit [...] And Vomiting Medications: Current Outpatient Medications: albuterol (PROVENTIL) 90 mcg/puff inhaler (ED prepack), Inhale 2 puffs into the lungs every 4 hours as needed for Wheezing., Disp: , Rfl: alendronate (FOSAMAX) 35 mg tablet, Take 1 [...] HIGH-DOSE 12/09/2016 ZOSTER, 1 DOSE (ZOSTAVAX) 07/27/2013 Review of Systems Constitutional: Denies fever, chills, sweats and unexpected weight change. Sleep: Denies excessive snoring, and daytime sleepiness. Eyes: Denies vision change, and eye irritation. ENT: Denies earache, tinnitus, nasal congestion, nosebleeds, sore throat, and hoarseness. Resp: Denies hemoptysis or pleuritic chest pain. CV: Denies neck/chest/jaw pain with exertion, palpitations, orthopnea and claudication. GI: Denies trouble swallowing, chronic heartburn, nausea, vomiting, abdominal pain, diarrh ea, melena, and hematochezia. Denies dysuria, hematuria, urinary frequency, difficulty emptying bladder. Musculoskeletal: Denies joint pain/stiffness, joint swelling, muscle cramps, muscle weaknes s. Derm: Denies rash or suspicious lesions. Neurologic: Denies frequent headaches, seizures, tremors, numbness or tingling in hands or feet, vertigo, and fall or difficulty walking in past 6 months Psych Denies depression, anxiety, suicidal ideation. Endo Denies cold intolerance, heat intolerance. Heme Denies abnormal bruising, bleeding, and enlarged lymph nodes. Allergy Denies urticaria, allergic rash, hay fever Objective BP 130/68 | Pulse 74 | Ht 1.651 m (5' 5") | Wt 69 kg (152 lb 1.9 oz) | SpO2 97% Comment : RA | BMI 25.31 kg/m General Appearance: Alert, cooperative, no distress, appears stated age. Head: Normocephalic, without obvious abnormality, atraumatic. Eyes: PERRL, conjunctiva/corneas clear. Ears: Normal external appearance, TM's without abnormality. Nose: Nasal mucosa normal, septum midline, no abnormal drainage or sinus tenderness. Throat: Lips, mucosa, and tongue normal; teeth/dentures normal. MP 2. Neck: Supple, symmetrical, no adenopathy, normal JVD Lungs: No accessory muscle use, breath sounds are reduced to auscultation bilaterally, no wheezes, no crackles or rhonchi. No dullness to percussion. Chest Wall: No tenderness or deformity. Heart: Regular rate and rhythm, S1, S2 normal, no murmur, no rub or gallop Abdomen: Soft, non-tender. No hepatosplenomegaly. Extremities: Extremities normal, atraumatic, no cyanosis, clubbing. Edema no Pulses: Radial pulses 2+ and symmetric Skin: Warm and dry Lymph nodes: No abnormal cervical or supraclavicular nodes Neurologic: Gait normal Data: Chest x-ray(s) from 12/28/2017 and 10/25/2018 were reviewed today with the patient present. e x-ray(s) show the patient has a spinal stimulator in the thoracic spine. She has wedge-sh aped compression changes at T8 and T11. Normal cardiac silhouette. Mild flattening of the diaphragms. Pulmonary function tests none. Jose Zhao MD's notes were reviewed in clinic today. Assessment Chelsey Devlin is a 73-year-old female with a 69-iqad-lttb smoking history who presents at e request of Jose Zhao MD for pulmonary consultation regarding apparent COPD. The patient has a distant history of asthma and reports intermittent shortness of breath fo r the last 10 or so years. She currently uses a Proventil inhaler twice a day. To initiate on his knowledge she is not previously been treated for an exacerbation of her COPD or pneu monia. The patient has also not used other inhaled pulmonary medications. Little in the way of exertional dyspnea is present. The patient has not had a Prevnar/Pneu movax or seasonal influenza vaccination. Her chest x-ray does show mild flattening of the diaphragms. It seems quite likely that this patient has some degree of obstructive lung disease. I hav e suggested initiating that we perform pulmonary function testing to further quantitate the degree of airflow obstruction. If significant obstructive changes are noted consideration will be given to using a long-ac ting bronchodilator. Based on the patient's prior smoking history she is an appropriate candidate for lung cance r screening with low-dose chest CT. Plan 1. Spirometry, lung volumes and diffusion capacity. 2. Walking oximetry on room air. 3. Refills of the patient's Proventil were provided. 4. Will discuss seasonal influenza vaccination and Prevnar at follow-up. 5. Explore low-dose CT scan of the chest for lung cancer screening with patient at the replaced [facility] of follow-up. CC: Jose Zhao MD documented in this [...] [place] | | | | | | [address] | | | | | | | | | | | | [place] | | +--------+ + + + + | 12/06/ | Appointment | Radiology | Jose Zhao, | | | 2018 | | | MD [address] | | | | | | [place] | | | | | | [address] | | | | | | | | +--------+ + + + + | 12/07/ | Office | Orthopedic Surgery | Jose Zhao, | | | 2018 | Visit | | MD [address] | | | | | | [place] | | | | | | [address] | | | | | | | | | | | | Carlos Nguy[address]n | | | | | | MD [address] | | | | | | [address] | | | | | | [place] [address] | | | | | | [phone] | | | | | | | | +--------+ + + + + | 02/27/ | Office | Family Medicine | Jose Zhao, | | | 2019 | Visit | | [address] | | | | | | [place] | | | | | | [address] | | | | | | | [...] | | signed by: Eriberto Milner MD, MD 11/16/2018 12:01[facility] | | | [facility] | | | | | |IMPRESSION: [...] MD 11/16/2018 | | |12:01 | | |[facility] | | + + + LABS - EXTERNAL SCAN (09/08/2018 0:00 PDT) + + + | Narrative | Performed At | + + + | Ordered by an | | | unspecified provider. | | + + + documented in this encounter Visit Diagnoses + + | Diagnosis | + + | Chronic obstructive pulmonary disease, unspecified COPD type (HCC) | + + documented in this encounter
--- OUTSIDE RECORDS SUMMARY | ~2018-11-25 | XMS | Encounter Summary ---
Demographics + + + | Address | [address] | | | [place] [address] | + + + | Home Phone | | + + + | Preferred Language | Unknown | + + + | Marital Status | | + + + | Mandaeism Affiliation | Unknown | + + + | Race | Unknown | + + + | Ethnic Group | Unknown | + + + Author + + + | Author | [facility] | | | and [place] | + + + | Organization | [facility] | | | and [place] | + + + | Address | Unknown | + + + | Phone | Unavailable | + + + Support + + + + + | Name | Relationship | Address | Phone | + + + + + | Tres Devlin | KEVIN | [address] | | | | | [place], [place] | | | | | [address] | | + + + + + | Kat Garcia | ECON | [address] | | | | | [place], [place] | | | | | [address] | | + + + + + Care Team Providers + +------+ + | Care Drying Tunnel Operator Name | Role | Phone | [...] | disease, | [place], [place] | [place] [address] | | | | | unspecified | [address] | Phone: | | | | | COPD type | Phone: | [phone] | | | | | ([facility]) | [phone] | Fax: | | | | | | Fax: | [phone] | | | | | | [phone] | | + + + + + + + Encounter Details +--------+---------+ + + + | Date | Type | Department | Care Team | Description | +--------+---------+ + + + | 11/01/ | Office | [facility] | Eriberto Milner, | Chronic obstructive | | 2019 | Visit | PULMONARY [address] | pulmonary disease, | | | | [place], | [place] | unspecified COPD | | | | [place] [address] | [address] | type (HCC) | | | | [phone] | | | +--------+---------+ + + + [...] images of the lungs. Date Last Reviewed: 11/23/201519993668-[address] [employer] [place] [address], [place] [address]. All righ ts reserved. This information is [...] SURGERY HYSTERECTOMY LUMBAR SPINE SURGERY 09/15/2016 At [facility] 2008---2011 THYROIDECTOMY 2002 TONSILLECTOMY Family History: [...] Devlin is a 73-year-old female with a 67-lgbr-znfa smoking history who presents at e request [...] lung cancer screening with patient at the [facility] of follow-up. CC: Jose Zhao MD documented [...] [place] | | | | | | [address] | | | | | | | | | | | | [place] | | +--------+ + + + + | 12/06/ | Appointment | Radiology | Jose Zhao, | | | 2018 | | | MD [address] | | | | | | [place] | | | | | | [address] | | | | | | | | +--------+ + + + + | 12/07/ | Office | Orthopedic Surgery | Jose Zhao, | | | 2018 | Visit | | MD [address] | | | | | | [place] | | | | | | [address] | | | | | | | | | | | | Carlos Nguyễn | | | | | | MD [address] | | | | | | [address] [place] | | | | | | [place] [address] | | | | | | [phone] | | | | | | | | +--------+ + + + + | 02/27/ | Office | Family Medicine | Jose Zhao, | | | 2019 | Visit | | [address] | | | | | | [place] | | | | | | [address] | | | | | | | [...] signed by: Eriberto Milner MD, MD 11/16/2018 12:01[facility] | | | [facility] | | | | | [...] MD 11/16/2018 | | |12:01 | | |[facility] | | + + + LABS - [...]
--- OUTSIDE RECORDS SUMMARY | ~2018-11-25 | XMS | Encounter Summary ---
Demographics + + + | Address | [address] | | | [place] [address] | + + + | Home Phone | | + + + | Preferred Language | Unknown | + + + | Marital Status | | + + + | Latter Day Affiliation | Unknown | + + + | Race | Unknown | + + + | Ethnic Group | Unknown | + + + Author + + + | Author | [facility] | | | and [place] | + + + | Organization | [facility] | | | and [...] [place], [place] | | | | | [address] | | + + + + + | Kat Garcia | ECON | [address] | | | | | [place], [place] | | | | | [address] | | + + + + + Care Team Providers + +------+ + | Care Adjudication Specialist Name | Role | Phone | [...] | Radiology | Diagnoses | Alf, | [facility] [address] | | | | | Personal | MD Eriberto | [place] | | | | | history of | [address] | [place], | | | | | nicotine | [address] | [place] [address] | | | | | dependence | [place], | Phone: | | | | | Tobacco use | [place] [address] | [phone] | | | | | Encounter | Phone: | Fax: | | | | | for | [phone] | [phone] | | | | | screening | Fax: | | | | | | for lung | [phone] | | | | | | cancer [...] | nicotine dependence | | | | [place], | [place], [place] | (Primary Dx); | | | | [place] [address] | [address] | Tobacco use; | | | | [phone] | | Encounter for | | | [...] [place] | | | | | | [address] | | | | | | | | | | | | [place] | | +--------+ + + + + | 12/06/ | Appointment | Radiology | Jose Zhao, | | | 2018 | | | [address] | | | | | | [place] | | | | | | [address] | | | | | | | | +--------+ + + + + | 12/07/ | Office | Orthopedic Surgery | Jose Zhao, | | | 2018 | Visit | | [address] | | | | | | [place] | | | | | | [address] | | | | | | | | | | | | Carlos Nguyễn | | | | | Nafisa Conroy MD [address] | | | | | | [address] | | | | | | [place] [address] | | | | | | [phone] | | | | | | | | +--------+ + + + + | 02/27/ | Office | Family Medicine | Jose Zhao, | | | 2019 | Visit | | [address] | | | | | | [place] | | | | | | [address] | | | | | | | [...]
--- OUTSIDE RECORDS SUMMARY | ~2018-11-25 | XMS | Encounter Summary ---
Demographics + + + | Address | [address] | | | [place] [address] | + + + | Home Phone | | + + + | Preferred Language | Unknown | + + + | Marital Status | | + + + | Pentecostal Affiliation | Unknown | + + + | Race | Unknown | + + + | Ethnic Group | Unknown | + + + Author + + + | Author | [facility] | | | and [place] | + + + | Organization | [facility] | | | and [...] [place], [place] | | | | | [address] | | + + + + + | Kat Garcia | ECON | [address] | | | | | [place], [place] | | | | | [address] | | + + + + + Care Team Providers + +------+ + | Care Baseball Hand Sewer Name | Role | Phone | + [...] | | disease, | [place], [place] | [place] [address] | | | | | unspecified | [address] | Phone: | | | | | COPD type | Phone: | [phone] | | | | | ([facility]) | [phone] | Fax: | | | | | | Fax: | [phone] | | | | | | [phone] | | + + + + + + + Encounter Details +--------+---------+ + + + | Date | Type | Department | Care Team | Description | +--------+---------+ + + + | 11/16/ | Office | [facility] | Eriberto Milner, | Chronic obstructive | | 2019 | Visit | PULMONARY [address] | pulmonary disease, | | | | [place], | [place] | unspecified COPD | | | | [place] [address] | [address] | type (HCC) (Primary | | | | [phone] | | Dx); Need for | | [...] Your next appointment is: Date Last Reviewed: 06/22/201619994046-3680 [employer]. [address] [place] [address], [place] [address]. All righ ts reserved. This information is [...] Assessment 1. COPD probable based on approximately 66-xwsl-ajvi smoking history and subjective resp onse to albuterol. However pulmonary function test today do not show significant airflow ob struction. Based on the patient's pulmonary function, use of albuterol and symptoms no additional medi cations will be prescribed at this time. I have recommended a Prevnar and seasonal influenza vaccination. 2. Prior tobacco use/lung cancer screening patient has a 11-asbv-xofv smoking history a nd quit smoking approximately [...] [place] | | | | | | [address] | | | | | | | | +--------+ + + + + | 12/07/ | Office | Orthopedic Surgery | Jose Zhao, | | | 2018 | Visit | | [address] | | | | | | [place] | | | | | | [address] | | | | | | | | | | | | Carlos Nguyễn | | | | | | MD [address] | | | | | | [address] | | | | | | [place] [address] | | | | | | [phone] | | | | | | | | +--------+ + + + + | 02/27/ | Office | Family Medicine | Jose Zhao, | | | 2019 | Visit | | [address] | | | | | | [place] | | | | | | [address] | | | | | | | [...]
--- OUTSIDE RECORDS SUMMARY | ~2018-11-25 | XMS | Encounter Summary ---
Demographics + + + | Address | [address] | | | [place] [address] | + + + | Home Phone | | + + + | Preferred Language | Unknown | + + + | Marital Status | | + + + | Voodoo Affiliation | Unknown | + + + | Race | Unknown | + + + | Ethnic Group | Unknown | + + + Author + + + | Author | [facility] | | | and Chaloana | + + + | Organization | [facility] | | | and Chaloana [...] [place], [place] | | | | | [address] | | + + + + + | Kat Garcia | ECON | [address] | | | | | [place], [place] | | | | | [address] | | + + + + + Care Team Providers + +------+ + | Care Revenue Cycle Administrator Name | Role | Phone | + [...] + + | Authorized | Specialty | Diabetes | Diagnoses | [place], | [facility] | | | Services | Educator / | Type 2 | Jose Del Castillo MD | Diabetes | | | Required | Diabetes | diabetes | [address] | Education | | | | Services | mellitus | [address] [place] | [address] | | | | | without | [place], [place] | [place], | | | | | complication | [address] | [place] | | | | | , without | Phone: | [phone] | | | | | long-term | [phone] | Phone: | | | | | current use | Fax: | [phone] | | | | | of insulin | [phone] | Fax: | | | | | ([facility]) | | [phone] | + + + + + + + Diagnostic/Screening (Routine) + +--------+ + + + + | Status | Reason | Specialty | Diagnoses / | Referred By | Referred To | | | | | Procedures | Contact | Contact | + +--------+ + + + + | Authorized | | Radiology | Diagnoses | [place], | [address] | | | | | | Jose Del Castillo MD | [address] | | | | | Insufficienc | [address] | [place], | | | | | y of right | [place] | [place] [address] | | | | | rotator cuff | [place], [place] | Phone: | | | | | Procedures | [address] | [phone] | | | | | CT | Phone: | Fax: | | | | | Arthrogram | [phone] | [phone] | | | | | Shoulder | Fax: | | | | | | Right | [phone] | | + +--------+ + + + + Reason for Visit +---------+ + | Reason | Comments | +---------+ + | Results | MRI right shoulder | +---------+ + Encounter Details +--------+---------+ + + + | Date | Type | Department | Care Team | Description | +--------+---------+ + + + | 11/21/ | Office | [facility] | Jose Zhao, | Insufficiency of | | 2019 | Visit | MEDIC[facility] [place] | [address] | right rotator cuff | | | | [address] | [facility] | (Primary Dx); Type 2 | | | | [place], [place] | [address] | diabetes mellitus | | | | [address] | | without | | | | [phone] | | complication, | | | | | | without long-term | | | | | | current use of | | | | | | insulin (HCC) | +--------+---------+ + + + Social History + + [...] + + + + | Height | - | - | + + + + | Body Mass Index | 25.09 | 11/16/2018 1124 PDT | + + + + documented in this encounter Progress Notes Jose Zhao MD - 11/21/2018 1230 PDT Subjective: Patient ID: Chelsey Devlin is [...] She went to PT for her shoulder. S he is now following with Gopi and cannot had an MRI because of her implantable spinal stim ulator DM2, There is no PP or P. There is no numbness in her feet or foot sores. It has been ye ars since she saw diabetic education. PMH: DM2 HTN HL Asthma Osteoporosis Graves OA, multijoint Depression Actinic Keratosis PSH: Jaida Lawrence D&C GAETANO-BSO T&A Multiple lumbar Spine surgeries Spinal Stimulator B cataracts Fhx: Mom 58 Graves Disease Dad 90's [place] Shx: Born in [facility] on and off or years. , 3 daughter Retired [employer] Former Smoker, 2 packs a day for [...] no joint swelling and No ar thralgias. No joint pain Skin: Neg for color change,no rash and No wounds, no Strange moles Neurological: Neg for dizziness, no Weakness,no light-headedness, no numbness and no headaches. Hematological: Neg for adenopathy. Does not bruise/bleed easily. Psychiatric/Behavioral: Neg for suicidal ideas,no confusion and no agitation. no Depression, no anxiety,no sleep problems Objective: BP 152/70 | Pulse 61 | Temp 36.6 C (97.9 F) (Temporal) | Resp 16 | Wt 68.4 kg (150 lb 12.7 oz) | SpO2 95% | BMI 25.09 kg/m Physical Exam Heent, WNL, No carotid bruit Chest CTAB Heart RR&R /s M Abd S,NT,ND,BS+ Ext, no CCor E Neuro Non-focal Lymph, no cervical, axillary, inguinal adenopathy Musculoskeletal, no gross deformity or loss or range of motion Skin, no gross lesions Assessment: 1. Insufficiency of right rotator cuff CT Arthrogram Shoulder Right 2. Type 2 diabetes mellitus without complication, without long-term current use of insulin (HCC) Plan: Increase the glyburide to 10mg po bid. CT arthrogram as she [facility] Otherwise continue current medical regimen. Refer to diabetes. Otherwise continue cu rrent medical regimen. documented in this enc ounter [...] [place] | | | | | | [id number] | | | | | | | | | | | | Julio Cesar, [place] | | +--------+ + + + + | 12/06/ | Appointment | Radiology | Jose Zhao, | | | 2018 | | | [address] | | | | | | [place] | | | | | | [address] | | | | | | | | +--------+ + + + + | 12/07/ | Office | Orthopedic Surgery | Jose Zhao, | | | 2018 | Visit | | [address] | | | | | | [place] | | | | | | [address] | | | | | | | | | | | | Carlos Nguyễn | | | | | | MD [address] | | | | | | [address] | | | | | | [place] [address] | | | | | | [phone] | | | | | | | | +--------+ + + + + | 02/27/ | Office | Family Medicine | Jose Zhao, | | | 2019 | Visit | | [address] | | | | | | [place] | | | | | | [address] | | | | | | | | +--------+ + + + + + +--------+ + + | Name | Priori | Associated Diagnoses | Order Schedule | | | ty | | | + +--------+ + + | CT Arthrogram Shoulder Right | Routin | Insufficiency of | Expected: | | | e | right rotator cuff | 11/21/2018, Expires: | | | | | 11/22/2019 | + +--------+ + + + +--------+ + + | Name | Priori | Associated Diagnoses | Order Schedule | | | ty | | | + +--------+ + + | * [facility] Diabetes Education - AMB | Routin | Type 2 diabetes | Ordered: 11/21/2018 | | Referral | e | mellitus without | | | | | complication, | | | | | without long-term | | | | | current use of | | | | | insulin (HCC) | | + +--------+ + + documented as of this encounter Visit Diagnoses + + | Diagnosis | + + | Insufficiency of right rotator cuff - Primary | + + | Type 2 diabetes mellitus without complication, without long-term current use of | | insulin (HCC) | + + documented in this encounter"
--- OUTSIDE RECORDS SUMMARY | ~2018-11-25 | XMS | Encounter Summary ---
Demographics + + + | Address | [address] | | | [place] [address] | + + + | Home Phone | | + + + | Preferred Language | Unknown | + + + | Marital Status | | + + + | Zoroastrian Affiliation | Unknown | + + + | Race | Unknown | + + + | Ethnic Group | Unknown | + + + Author + + + | Author | [facility] | | | and Chaloana | + + + | Organization | [facility] | | | and Chaloana [...] [place], [place] | | | | | [address] | | + + + + + | Kat Garcia | ECON | [address] | | | | | [place], [place] | | | | | [address] | | + + + + + Care Team Providers + +------+ + | Care Plastic Surgery Nurse Name | Role | Phone | + [...] mellitus | AVE [place] | [address] | | | | | without | [place], [place] | [place], | | | | | complication | [address] | [place] | | | | | , without | Phone: | [phone] | | | | | long-term | [phone] | Phone: | | | | | current use | Fax: | [phone] | | | | | of insulin | [phone] | Fax: | | | | | ([facility]) | | [phone] | + + + + + + [...] | Jose Del Castillo MD | [address] | | | | | Insufficienc | [address] | [place], | | | | | y of right | AVE [place] | [place] [address] | | | | | rotator cuff | [place], [place] | Phone: | | | | | Procedures | [address] | [phone] | | | | | CT | Phone: | Fax: | | | | | Arthrogram | [phone] | [phone] | | | | | Shoulder | Fax: | | | | | | Right | [phone] | | + +--------+ + + + + Reason for Visit +---------+ + | Reason | Comments | +---------+ + | Results | MRI right shoulder | +---------+ + Encounter Details +--------+---------+ + + + | Date | Type | Department | Care Team | Description | +--------+---------+ + + + | 11/21/ | Office | [facility] | Jose Zhao, | Insufficiency of | | 2019 | Visit | [facility] [place] | [address] | right rotator cuff | | | | [address] | [place] [facility] [place] | (Primary Dx); Type 2 | | | | [place], [place] | [address] | diabetes mellitus | | | | [address] | | without | | | | [phone] | | complication, | | | | [...] Fhx: Mom 58 Graves Disease Dad 90's [place] Shx: Born in [facility] on and off or years. , 3 [...] as she cant obtain MRI on the [facility]. Otherwise continue current medical regimen. Refer [...] [place] | | | | | | [id number] | | | | | | | | | | | | Julio Cesar, [place] | | +--------+ + + + + | 12/06/ | Appointment | Radiology | Jose Zhao, | | | 2018 | | | [address] | | | | | | [place] | | | | | | [address] | | | | | | | | +--------+ + + + + | 12/07/ | Office | Orthopedic Surgery | Jose Zhao, | | | 2018 | Visit | | MD [address] | | | | | | [place] | | | | | | [address] | | | | | | | | | | | | Carlos Nguyễn | | | | | | MD [address] | | | | | | [address] | | | | | | [place] [address] | | | | | | [phone] | | | | | | | | +--------+ + + + + | 02/27/ | Office | Family Medicine | Jose Zhao, | | | 2019 | Visit | | [address] | | | | | | [place] | | | | | | [address] | | | | | | | [...]
--- OUTSIDE RECORDS SUMMARY | ~2018-11-25 | XMS | Encounter Summary ---
Demographics + + + | Address | [address] | | | [place] [address] | + + + | Home Phone | | + + + | Preferred Language | Unknown | + + + | Marital Status | | + + + | Presybeterian Affiliation | Unknown | + + + | Race | Unknown | + + + | Ethnic Group | Unknown | + + + Author + + + | Author | [facility] | | | and Chaloana | + + + | Organization | [facility] | | | and Chaloana [...] [place], [place] | | | | | [address] | | + + + + + | Kat Garcia | ECON | [address] | | | | | [place], [place] | | | | | [address] | | + + + + + Care Team Providers + +------+ + | Care Aircraft Engine Specialist Name | Role | Phone | [...] | syndrome of | [place], [place] | [place], | | | | | right | [address] | [place] | | | | | shoulder and | Phone: | [address] | | | | | allied | [phone] | Phone: | | | | | disorder | Fax: | [phone] | | | | | | [phone] | Fax: | | | | | | | [phone] | + + + + + + [...] Pain | | 2019 | | [facility] | [address] | | | | | [address] | [place] | | | | | [place] | [address] | | | | | [address] | | | | | | [phone] | | | +--------+ + + + [...] [place] | | | | | | [address] | | | | | | | | | | | | Julio Cesar, [place] | | +--------+ + + + + | 12/06/ | Appointment | Radiology | Jose Zhao, | | | 2018 | | | [address] | | | | | | [place] | | | | | | [address] | | | | | | | | +--------+ + + + + | 12/07/ | Office | Orthopedic Surgery | Jose Zhao, | | | 2018 | Visit | | [address] | | | | | | [place] | | | | | | [address] | | | | | | | | | | | | Carlos Nguyễn | | | | | | MD [address] | | | | | | [address] | | | | | | [place] [address] | | | | | | [phone] | | | | | | | | +--------+ + + + + | 02/27/ | Office | Family Medicine | Jose Zhao, | | | 2020 | Visit | | [address] | | | | | | [place] | | | | | | [address] | | | | | | | | +--------+ + + + + + +--------+ + + | Name | Priori | Associated Diagnoses | Order Schedule | | | ty | | | + +--------+ + + | * [facility] [place] Orthopedic Surgery - | Routin | Disorder [...]
--- OUTSIDE RECORDS SUMMARY | ~2018-11-25 | XMS | Encounter Summary ---
Demographics + + + | Address | [address] | | | [place] [address] | + + + | Home Phone | | + + + | Preferred Language | Unknown | + + + | Marital Status | | + + + | Yazdanism Affiliation | Unknown | + + + | Race | Unknown | + + + | Ethnic Group | Unknown | + + + Author + + + | Author | [facility] | | | and Chaloana | + + + | Organization | [facility] [...] [place], [place] | | | | | [address] | | + + + + + | Kat Garcia | ECON | [address] | | | | | [place], [place] | | | | | [address] | | + + + + + Care Team Providers + +------+ + | Care Software Applications Engineer Name | Role | Phone | [...] | syndrome of | [place], [place] | [place], | | | | | right | [address] | [place] | | | | | shoulder and | Phone: | [address] | | | | | allied | [phone] | Phone: | | | | | disorder | Fax: | [phone] | | | | | | [phone] | Fax: | | | | | | | [phone] | + + + + + + + Encounter Details +--------+---------+ + + + | Date | Type | Department | Care Team | Description | +--------+---------+ + + + | 11/07/ | Office | [facility] | Jose Zhao, | Primary | | 2019 | Visit | ORTHOPEDIC SURGERY | [address] | osteoarthritis of | | | | [address] [facility] | [place], [place] | right shoulder | | | | [place], [place] | [address] | (Primary Dx); | | | | [address] | | Impingement syndrome | | | | [phone] | Carlos Nguyễn | of right shoulder | | | | | MD [address] | | | | | | [facility] | | | | | | [place] [address] | | | | | | [phone] | | | | | | | [...] on the hip joint. Date Last Reviewed: 07/23/201719990563-[address] [employer] [place] [address], [place] [address]. All righ ts reserved. This information is not intended as a substitute for professional medical care. Always follow your healthcare professional's instructions. documented in this encounter Progress Notes Carlos Nguyễn MD - 11/07/2018 1300 PDTFormatting of this note might be differe nt from the original. [facility] HISTORY AND PHYSICAL EXAMINATION Pt. [...] SURGERY HYSTERECTOMY LUMBAR SPINE SURGERY 09/15/2016 At [facility] 2008---2011 THYROIDECTOMY 2002 TONSILLECTOMY Allergies: Allergies [...] made to ensure accuracy; however, inadvertent computerized assistant cross country coach errors may be pre sent. I appreciate [...] [place] | | | | | | [address] | | | | | | | | | | | | [place] | | +--------+ + + + + | 12/06/ | Appointment | Radiology | Jose Zhao, | | | 2018 | | | [address] | | | | | | [place] | | | | | | [address] | | | | | | | | +--------+ + + + + | 12/07/ | Office | Orthopedic Surgery | Jose Zhao, | | | 2018 | Visit | | [address] | | | | | | [place] | | | | | | [address] | | | | | | | | | | | | Carlos Nguyễn | | | | | | MD [address] | | | | | | [address] | | | | | | [place] [address] | | | | | | [phone] | | | | | | | [...]
--- OUTSIDE RECORDS SUMMARY | ~2018-11-25 | XMS | Encounter Summary ---
Demographics + + + | Address | [address] | | | [place] [address] | + + + | Home Phone | | + + + | Preferred Language | Unknown | + + + | Marital Status | | + + + | Hinduism Affiliation | Unknown | + + + | Race | Unknown | + + + | Ethnic Group | Unknown | + + + Author + + + | Author | [facility] | | | and [place]aloana | + + + | Organization | [facility] | | | and Chaloana [...] [place], [place] | | | | | [address] | | + + + + + | Kat Garcia | ECON | [address] | | | | | [place], [place] | | | | | [address] | | + + + + + Care Team Providers + +------+ + | Care Supply Chain Coordinator Name | Role | Phone | [...] + | 11/17/ | Telephone | [facility] | Jose Zhao, | Imaging Only | | 2019 | | [facility] | [address] | | | | | [address] | [place] | | | | | [place] | [address] | | | | | [address] | | | | | | [phone] | | | +--------+ + + + [...] [place] | | | | | | [address] | | | | | | | | | | | | Rad, [facility] | | +--------+ + + + + | 12/06/ | Appointment | Radiology | Jose Zhao, | | | 2018 | | | [address] | | | | | | [place] | | | | | | [address] | | | | | | | | +--------+ + + + + | 12/07/ | Office | Orthopedic Surgery | Jose Zhao, | | | 2018 | Visit | | [address] | | | | | | [place] | | | | | | [address] | | | | | | | | | | | | Carlos Nguyễn | | | | | | MD [address] | | | | | | [address] | | | | | | [place] [address] | | | | | | [phone] | | | | | | | [...]
--- OUTSIDE RECORDS SUMMARY | ~2018-11-25 | XMS | Encounter Summary ---
Demographics + + + | Address | [address] | | | [place] [address] | + + + | Home Phone | | + + + | Preferred Language | Unknown | + + + | Marital Status | | + + + | Confucianist Affiliation | Unknown | + + + | Race | Unknown | + + + | Ethnic Group | Unknown | + + + Author + + + | Author | [facility] | | | and [place]aloana | + + + | Organization | [facility] | | | and [...] [place], [place] | | | | | [address] | | + + + + + | Kat Garcia | ECON | [address] | | | | | [place], [place] | | | | | [address] | | + + + + + Care Team Providers + +------+ + | Care Nanoscience Technician Name | Role | Phone | + [...] Jose Del Castillo MD | [address] | | | | | rotator | [address] | [place], | | | | | cuff | [address]VE [place] | [place] | | | | | syndrome of | [place] | [address] | | | | | right | [address] | Phone: | | | | | shoulder and | Phone: | [phone] | | | | | allied | [phone] | Fax: | | | | | disorder | Fax: | [phone] | | | | | Procedures | [phone] | | | | | | MRI [...] + + | 10/31/ | Telephone | [facility] | Jose Zhao, | Referral (Follow up) | | 2019 | | MEDICINE [place] | [address] | | | | | [address] | [place] | | | | | [place] | [address] | | | | | [address] | | | | | | [phone] | | | +--------+ + + + [...] [place] | | | | | | [address] | | | | | | | | | | | | [place] | | +--------+ + + + + | 12/06/ | Appointment | Radiology | Jose Zhao, | | | 2018 | | | [address] | | | | | | [place] | | | | | | [address] | | | | | | | | +--------+ + + + + | 12/07/ | Office | Orthopedic Surgery | Jose Zhao, | | | 2018 | Visit | | [address] | | | | | | [place] | | | | | | [address] | | | | | | | | | | | | Carlos Nguyễn | | | | | | MD [address] | | | | | | [address] | | | | | | [place] [address] | | | | | | [phone] | | | | | | | | +--------+ + + + + | 02/27/ | Office | Family Medicine | Jose Zhao, | | | 2020 | Visit | | MD [address] | | | | | | [place] | | | | | | [address] | | | | | | | [...]
[~2018-11-25 19:00] MED LIST changes: +NORCO 5-325 TA1 EACH PO
--- OUTSIDE RECORDS SUMMARY | 2018-11-25 19:02 | XMS ---
PreManage Notification: GRISEL WARNER Security Methods And Procedures Analyst Events No recent Security Events currently on file CRITERIA MET - Group Notification - [facility] CARE PROVIDERS SALO CARVAJAL Internal Medicine 10/18/2017-Current PHONE: Unknown BERNARDO Del Castillo [facility] Current PHONE: Unknown Tisha Pelaez [facility] Current PHONE: Unknown DR SALO CARVAJAL Primary Care 07/23/2016-Current PHONE: [phone] Guidelines Source: [facility] [place] Guidelines Date: 08/16/2018 Care Coordination: Mental health services are being provided by [facility].\T\nbsp; Please contact [facility] with mental health concerns.\T\nbsp; [facility]: \T\nbsp; Jose: [phone]. E.D. VISIT COUNT (12 MO.) [address] [facility] TOTAL 2 NOTE: Visits indicate total known visits. 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
[2018-11-25] MEDS ORDERED: NORCO 5-325 TA1 EACH PO (23:11)
== END 2018-11-25 23:22 | disposition home or self-care (01) ==
LOC: ED 19:00
DX: S09.90XA Unspecified injury of head, initial encounter (principal); S92.514A Nondisplaced fracture of proximal phalanx of right lesser toe(s), initial encounter for closed fracture; W22.8XXA Striking against or struck by other objects, initial encounter; E03.9 Hypothyroidism, unspecified; J45.909 Unspecified asthma, uncomplicated; I10 Essential (primary) hypertension; E78.00 Pure hypercholesterolemia, unspecified; E11.9 Type 2 diabetes mellitus without complications; Z87.891 Personal history of nicotine dependence; Z88.0 Allergy status to penicillin; Z88.8 Allergy status to other drugs, medicaments and biological substances; Z79.899 Other long term (current) drug therapy; Z79.82 Long term (current) use of aspirin
CPT/HCPCS: 70450; 73660; 99284-25

== ENCOUNTER 2021-05-27 21:30 | Emergency (ER) | payer MEDICARE, OTHER ==
[~2021-05-27] VITALS: Ht 166.4 cm; Wt 63.0 kg
--- OUTSIDE RECORDS SUMMARY | 2021-05-27 21:32 | XMS ---
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 ED/UCC VISIT TRACKING (12 MO.) 05/27/2021 21:30 [facility] [place] TYPE: Emergency COMPLAINT: - RIGHT WRIST INJ INPATIENT VISIT TRACKING (12 MO.) No inpatient visits to display in this time frame [email or web address]
[2021-05-27] MEDS ORDERED: ULTRAM50 MG PO (22:24)
== END 2021-05-27 22:52 | disposition home or self-care (01) ==
LOC: ED 21:30
DX: S63.501A Unspecified sprain of right wrist, initial encounter (principal); S62.111K Displaced fracture of triquetrum [cuneiform] bone, right wrist, subsequent encounter for fracture with nonunion; W22.8XXA Striking against or struck by other objects, initial encounter; E03.9 Hypothyroidism, unspecified; J45.909 Unspecified asthma, uncomplicated; I10 Essential (primary) hypertension; E78.00 Pure hypercholesterolemia, unspecified; E11.9 Type 2 diabetes mellitus without complications; Z87.891 Personal history of nicotine dependence; Z88.0 Allergy status to penicillin; Z88.8 Allergy status to other drugs, medicaments and biological substances; Z79.899 Other long term (current) drug therapy; Z79.82 Long term (current) use of aspirin
CPT/HCPCS: 73110; 99283-25

== ENCOUNTER 2021-12-06 18:14 | Emergency (ER) | payer MEDICARE, OTHER ==
[~2021-12-06] VITALS: Ht 166.4 cm; Wt 63.6 kg
--- OUTSIDE RECORDS SUMMARY | 2021-12-06 18:22 | XMS ---
PreManage Notification: GRISEL WARNER Security Chemical Engineering Teacher Events No recent Security Events currently on file CRITERIA MET - Group Notification CARE PROVIDERS SALO CARVAJAL Internal Medicine 10/18/2017-Current PHONE: [phone] BERNARDO Del Castillo [facility] Current PHONE: Unknown Care Guidelines exist for the following facilities: Bashir Olivares ( 04/08/2020 ) [facility] VISIT COUNT (12 MO.) [address] [facility] TOTAL 2 NOTE: Visits indicate total known visits. ED/UCC VISIT TRACKING (12 MO.) 12/06/2021 18:16 [facility] [place] TYPE: Emergency COMPLAINT: - R WRIST PAIN, FALL 05/27/2021 21:30 [facility] TYPE: Emergency COMPLAINT: - RIGHT WRIST INJ DIAGNOSES: - Unspecified asthma, uncomplicated - half-way (current) use of aspirin - Personal history of nicotine dependence - Striking against or struck by other objects, initial encounter - Pure hypercholesterolemia, unspecified - Unspecified sprain of right wrist, initial encounter - Other vermin exterminator (current) drug therapy - Allergy status to penicillin - Allergy status to other drugs, medicaments and biological substances - Type 2 diabetes mellitus without complications - Pain in right wrist - Hypothyroidism, unspecified - Displaced fracture of triquetrum [cuneiform] bone, right wrist, subsequent encounter for fracture with nonunion - Essential (primary) hypertension INPATIENT VISIT TRACKING (12 MO.) No inpatient visits to display in this time frame [email or web address]
== END 2021-12-06 21:45 | disposition home or self-care (01) ==
LOC: ED 18:14
DX: S52.91XA Unspecified fracture of right forearm, initial encounter for closed fracture (principal); J45.909 Unspecified asthma, uncomplicated; E03.9 Hypothyroidism, unspecified; I10 Essential (primary) hypertension; E78.00 Pure hypercholesterolemia, unspecified; E11.9 Type 2 diabetes mellitus without complications; Z87.891 Personal history of nicotine dependence; Z88.0 Allergy status to penicillin; Z88.8 Allergy status to other drugs, medicaments and biological substances; Z79.82 Long term (current) use of aspirin; Z79.899 Other long term (current) drug therapy; W19.XXXA Unspecified fall, initial encounter
CPT/HCPCS: 73110; 99283-25

== ENCOUNTER 2022-01-31 17:42 | Emergency (ER) | payer MEDICARE, OTHER ==
[~2022-01-31] VITALS: Ht 166.4 cm; Wt 61.3 kg
--- OUTSIDE RECORDS SUMMARY | 2022-01-31 17:50 | XMS ---
PreManage Notification: GRISEL WARNER Security Retail Personal Banker Events No recent Security Events currently on file CRITERIA MET - Group Notification CARE PROVIDERS SALO CARVAJAL Internal Medicine 10/18/2017-Current PHONE: [phone] BERNARDO Del Castillo [facility] Current PHONE: Unknown Care Guidelines exist for the following facilities: Bashir Olivares ( 04/08/2020 ) [facility] VISIT COUNT (12 MO.) [address] [facility] TOTAL 3 NOTE: Visits indicate total known visits. ED/UCC VISIT TRACKING (12 MO.) 01/31/2022 17:44 [facility] [place] TYPE: Emergency COMPLAINT: - FALL L SHOULDER INJ 12/06/2021 18:16 [facility] [place] TYPE: Emergency COMPLAINT: - R WRIST PAIN, FALL DIAGNOSES: - Allergy status to penicillin - Essential (primary) hypertension - Hypothyroidism, unspecified - Unspecified fracture of right forearm, initial encounter for closed fracture - shelter (current) use of aspirin - Other roasterman (current) drug therapy - Pain in right wrist - Unspecified asthma, uncomplicated - Allergy status to other drugs, medicaments and biological substances - Unspecified fall, initial encounter - Pure hypercholesterolemia, unspecified - Type 2 diabetes mellitus without complications - Personal history of nicotine dependence 05/27/2021 21:[address] [facility] [place] TYPE: Emergency COMPLAINT: - RIGHT WRIST INJ DIAGNOSES: - Displaced fracture of triquetrum [cuneiform] bone, right wrist, subsequent encounter for fracture with nonunion - Essential (primary) hypertension - Unspecified asthma, uncomplicated - shelter (current) use of aspirin - Personal history of nicotine dependence - Striking against or struck by other objects, initial encounter - Pure hypercholesterolemia, unspecified - Unspecified sprain of right wrist, initial encounter - Other roasterman (current) drug therapy - Allergy status to penicillin - Allergy status to other drugs, medicaments and biological substances - Type 2 diabetes mellitus without complications - Pain in right wrist - Hypothyroidism, unspecified INPATIENT VISIT TRACKING (12 MO.) No inpatient visits to display in this time frame [id number]
[2022-01-31] MEDS ORDERED: HYDROCODON-ACE1 EA10 PO (23:14)
== END 2022-01-31 23:33 | disposition home or self-care (01) ==
LOC: ED 17:42
DX: S42.032A Displaced fracture of lateral end of left clavicle, initial encounter for closed fracture (principal); M25.562 Pain in left knee; I10 Essential (primary) hypertension; E03.9 Hypothyroidism, unspecified; J45.909 Unspecified asthma, uncomplicated; E78.00 Pure hypercholesterolemia, unspecified; E11.9 Type 2 diabetes mellitus without complications; Z87.891 Personal history of nicotine dependence; Z88.0 Allergy status to penicillin; Z88.8 Allergy status to other drugs, medicaments and biological substances; Z79.899 Other long term (current) drug therapy; Z79.82 Long term (current) use of aspirin; W19.XXXA Unspecified fall, initial encounter
CPT/HCPCS: 36415; 70450; 70491; 72125; 73030; 73560; 80048; 85025; 99284-25; A9270; J2270; Q9967

== ENCOUNTER 2022-07-02 15:51 | Emergency (ER) | payer MEDICARE, OTHER ==
[~2022-07-02] VITALS: Ht 166.4 cm; Wt 61.2 kg
[~2022-07-02 15:51] MED LIST changes: +HYDROCODON-ACE1 EA10 PO
--- OUTSIDE RECORDS SUMMARY | 2022-07-02 15:54 | XMS ---
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 TOTAL 3 NOTE: Visits indicate total known visits. ED/UCC VISIT TRACKING (12 MO.) 07/02/2022 15:52 [facility] [place] TYPE: Emergency COMPLAINT: - CHEST PAIN 01/31/2022 17:44 [facility] [place] TYPE: Emergency COMPLAINT: - FALL L SHOULDER INJ DIAGNOSES: - Allergy status to other drugs, medicaments and biological substances - Allergy status to penicillin - Displaced fracture of lateral end of left clavicle, initial encounter for closed fracture - Essential (primary) hypertension - Hypothyroidism, unspecified - MCFP (current) use of aspirin - Other terminologist (current) drug therapy - Pain in left knee - Pain in left shoulder - Personal history of nicotine dependence - Pure hypercholesterolemia, unspecified - Type 2 diabetes mellitus without complications - Unspecified asthma, uncomplicated - Unspecified fall, initial encounter 12/06/2021 18:[address] [facility] [place] TYPE: Emergency COMPLAINT: - R WRIST PAIN, FALL DIAGNOSES: - Allergy status to other drugs, medicaments and biological substances - Allergy status to penicillin - Essential (primary) hypertension - Hypothyroidism, unspecified - MCFP (current) use of aspirin - Other terminologist (current) drug therapy - Pain in right wrist - Personal history of nicotine dependence - Pure hypercholesterolemia, unspecified - Type 2 diabetes mellitus without complications - Unspecified asthma, uncomplicated - Unspecified fall, initial encounter - Unspecified fracture of right forearm, initial encounter for closed fracture INPATIENT VISIT TRACKING (12 MO.) No inpatient visits to display in this time frame [id number]
[2022-07-02] MEDS ORDERED: PAROXETINE HCL10 MG PO (16:06)
[2022-07-02] MEDS ORDERED: LEVOTHYROXINE125 MCG PO (16:07)
[2022-07-02] MEDS ORDERED: TRULICITY1.5 MG/0.5 SUB-Q (16:08)
[2022-07-02] MEDS ORDERED: ROSUVASTATIN CA10 MG PO (16:09)
[2022-07-02] MEDS ORDERED: POTASSIUM CHLO10 ME1 PO (16:10)
[2022-07-02] MEDS ORDERED: ALENDRONATE SOD35 MG PO (16:10)
[2022-07-02] MEDS ORDERED: GLIPIZIDE10 MG PO (16:10)
[2022-07-02] MEDS ORDERED: LANTUS SOL100 UNIT/1 SUB-Q (16:13)
[2022-07-02 18:20] VITALS: BP 126/57
--- NOTE | 2022-07-02 21:36 | EKG ---
[facility] [address] [facility] [place] [address] Signed Normal sinus rhythm ST \T\ T wave abnormality, consider lateral ischemia Abnormal ECG When compared with ECG of 24-DEC-2016 10:15, Nonspecific T wave abnormality, improved in Inferior leads T wave inversion now evident in Lateral leads Confirmed by ISAC CATALAN MD ([id number]) on 07/02/2022 9:35:42 PM Electronically Signed By: ISAC CATALAN MD 07/02/22 2136 PATIENT NAME: GRISEL WARNER Electrocardiogram DATE OF : 45 PHYSICIAN: ISAC CATALAN MD REPORT #: [id number] REPORT IS CONFIDENTIAL AND NOT TO BE RELEASED WITHOUT AUTHORIZATION
== END 2022-07-02 18:20 | disposition home or self-care (01) ==
LOC: ED 15:51
DX: R07.89 Other chest pain (principal); E03.9 Hypothyroidism, unspecified; J45.909 Unspecified asthma, uncomplicated; I10 Essential (primary) hypertension; E78.00 Pure hypercholesterolemia, unspecified; E11.9 Type 2 diabetes mellitus without complications; Z87.891 Personal history of nicotine dependence; Z88.0 Allergy status to penicillin; Z88.8 Allergy status to other drugs, medicaments and biological substances; Z79.899 Other long term (current) drug therapy; Z79.82 Long term (current) use of aspirin; Z79.4 Long term (current) use of insulin
CPT/HCPCS: 36415; 71045; 80053; 83735; 84484; 85025; 93005; 93010; 99285-25; A9270

== ENCOUNTER 2023-02-11 08:29 | Emergency (ER) | payer MEDICARE, OTHER ==
[~2023-02-11] VITALS: Ht 166.4 cm; Wt 61.2 kg
[~2023-02-11 08:29] MED LIST changes: +ALENDRONATE SOD35 MG PO; +GLIPIZIDE10 MG PO; +LANTUS SOL100 UNIT/1 SUB-Q; +LEVOTHYROXINE125 MCG PO; +POTASSIUM CHLO10 ME1 PO; +ROSUVASTATIN CA10 MG PO; +TRULICITY1.5 MG/0.5 SUB-Q
--- OUTSIDE RECORDS SUMMARY | 2023-02-11 08:38 | XMS ---
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 ED/UCC VISIT TRACKING (12 MO.) 02/11/2023 08:30 [facility] [place] TYPE: Emergency COMPLAINT: - FALL, HEAD INJURY 07/02/2022 15:52 [facility] [place] TYPE: Emergency COMPLAINT: - CHEST PAIN DIAGNOSES: - Allergy status to other drugs, medicaments and biological substances - Allergy status to penicillin - Essential (primary) hypertension - Hypothyroidism, unspecified - terminal manager (current) use of aspirin - long-term (current) use of insulin - Other chest pain - Other intermediate frame tender (current) drug therapy - Personal history of nicotine dependence - Pure hypercholesterolemia, unspecified - Type 2 diabetes mellitus without complications - Unspecified asthma, uncomplicated INPATIENT VISIT TRACKING (12 MO.) No inpatient visits to display in this time frame [id number]
[2023-02-11 10:14] VITALS: BP 173/58
== END 2023-02-11 10:15 | disposition home or self-care (01) ==
LOC: ED 08:29
DX: S00.03XA Contusion of scalp, initial encounter (principal); I10 Essential (primary) hypertension; E11.9 Type 2 diabetes mellitus without complications; J45.909 Unspecified asthma, uncomplicated; E03.9 Hypothyroidism, unspecified; E78.00 Pure hypercholesterolemia, unspecified; E05.00 Thyrotoxicosis with diffuse goiter without thyrotoxic crisis or storm; Z87.891 Personal history of nicotine dependence; Z79.4 Long term (current) use of insulin; Z79.84 Long term (current) use of oral hypoglycemic drugs; Z79.82 Long term (current) use of aspirin; Z79.899 Other long term (current) drug therapy; Z88.0 Allergy status to penicillin; Z88.8 Allergy status to other drugs, medicaments and biological substances; W22.8XXA Striking against or struck by other objects, initial encounter; Y93.89 Activity, other specified
CPT/HCPCS: 70450; 99284-25

== ENCOUNTER 2023-09-25 16:23 | Emergency (ER) | payer MEDICARE, OTHER ==
[~2023-09-25] VITALS: Ht 166.4 cm; Wt 60.6 kg
[~2023-09-25 16:23] MED LIST changes: +CIPRO500 MG PO; +METHYLPREDNISOLO4 M1 PO; +METRONIDAZOLE500 MG PO; +ONDANSETRON ODT8 MG PO
--- OUTSIDE RECORDS SUMMARY | 2023-09-25 16:25 | XMS ---
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 ED/UCC VISIT TRACKING (12 MO.) 09/25/2023 16:24 [facility] [place] TYPE: Emergency COMPLAINT: - LACERATION 09/15/2023 19:43 [facility] [place] TYPE: Emergency COMPLAINT: - BLOOD IN STOOL DIAGNOSES: - Allergy status to other drugs, medicaments and biological substances - Allergy status to penicillin - Essential (primary) hypertension - Hemorrhage of anus and rectum - Hormone replacement therapy - Hypothyroidism, unspecified - termite inspector (current) use of insulin - Noninfective gastroenteritis and colitis, unspecified - Personal history of nicotine dependence - Type 2 diabetes mellitus without complications 02/11/2023 08:[address] [facility] [place] TYPE: Emergency COMPLAINT: - HEAD INJURY DIAGNOSES: - Activity, other specified - Allergy status to other drugs, medicaments and biological substances - Allergy status to penicillin - Contusion of scalp, initial encounter - Essential (primary) hypertension - Headache, unspecified - Hypothyroidism, unspecified - termite inspector (current) use of aspirin - termite inspector (current) use of insulin - FDC (current) use of oral hypoglycemic drugs - Other care home (current) drug therapy - Personal history of nicotine dependence - Pure hypercholesterolemia, unspecified - Striking against or struck by other objects, initial encounter - Thyrotoxicosis with diffuse goiter without thyrotoxic crisis or storm - Type 2 diabetes mellitus without complications - Unspecified asthma, uncomplicated INPATIENT VISIT TRACKING (12 MO.) No inpatient visits to display in this time frame [id number]
[2023-09-25 17:55] VITALS: BP 150/66
== END 2023-09-25 17:55 | disposition home or self-care (01) ==
LOC: ED 16:23
DX: S61.211A Laceration without foreign body of left index finger without damage to nail, initial encounter (principal); W26.0XXA Contact with knife, initial encounter; I10 Essential (primary) hypertension; E11.9 Type 2 diabetes mellitus without complications; E03.9 Hypothyroidism, unspecified; J45.909 Unspecified asthma, uncomplicated; E78.00 Pure hypercholesterolemia, unspecified; Z87.891 Personal history of nicotine dependence; Z88.0 Allergy status to penicillin; Z88.8 Allergy status to other drugs, medicaments and biological substances; Z79.82 Long term (current) use of aspirin; Z79.84 Long term (current) use of oral hypoglycemic drugs; Z79.890 Hormone replacement therapy; Z79.899 Other long term (current) drug therapy
CPT/HCPCS: 12001; 99282-25

== ENCOUNTER 2023-11-30 10:53 | Day surgery (SDC) | payer MEDICARE, OTHER ==
[~2023-11-30] VITALS: Ht 166.4 cm; Wt 59.1 kg
[~2023-11-30 10:53] MED LIST changes: +CEFAZOLIN SODIUM 2 GM/20 ML SYR IV SCH; +CIPRO250 MG PO; +IBLOOD GLUCOSE TEST STRIP 1 EA TEST VI PRN; +LACTATED RINGER'S 1,000 ML IV SCH; +LIDOCAINE HCL 1% 5 ML SDV INJ ONE; +MIDAZOLAM HCL 5 MG/5 ML VIAL IV PRN; +fentaNYL citrate 100 MCG/2 ML VIAL IV PRN
[2023-11-30 11:10] VITALS: BP 189/73
[2023-11-30] MEDS ORDERED: ROSUVASTATIN CA10 MG PO (11:15)
[2023-11-30] MEDS ORDERED: METOPROLOL SUCC25 MG PO (11:15)
[2023-11-30] MEDS ORDERED: LISINOPRIL40 MG PO (11:15)
[2023-11-30] MEDS ORDERED: fentaNYL citrate 100 MCG/2 ML VIAL ONE ×2 (11:53→12:10)
[2023-11-30] MEDS ORDERED: MIDAZOLAM HCL 5 MG/5 ML VIAL ONE ×2 (11:54→12:43)
--- NOTE | 2023-11-30 13:15 | NUR ---
11/30/23 Timi5 John Christensen 1308: PT ARRIVED TO PACU VIA STRETCHER. PT AROUSABLE TO STIMULI. PT ON RA UPON ARRIVAL.
[2023-11-30 13:55] VITALS: BP 134/74
--- NOTE | 2023-12-02 14:22 | PATH ---
[facility] [address] [place], [place] [address] Signed SPECIMEN(S): A RECTAL POLYP SPECIMEN SOURCE: A. RECTAL POLYP CLINICAL HISTORY: Rectal bleeding, diarrhea, colitis, diverticulosis, internal hemorrhoids FINAL PATHOLOGIC DIAGNOSIS: Rectum, polypectomy: - Hyperplastic polyp BRP MICROSCOPIC EXAMINATION: Histologic sections of all submitted blocks are examined by light microscopy. These findings, together with the gross examination, support the pathologic diagnosis. GROSS DESCRIPTION: The specimen, labeled and designated "Claus, rectal polyp," is received in formalin and consists of one richmond soft tissue fragment, 0.4 cm. Entirely submitted in (A1). VB (under the direct supervision of a pathologist) The Gross Description was prepared using a voice recognition system. The report was reviewed for accuracy; however, sound-alike word errors, addition and/or deletions may occur. If there is any question about this report, please contact Client Services. ADDITIONAL NOTES: Immunohistochemical and/or in situ hybridization studies if performed in this case included appropriate positive controls that reacted as expected. This test was developed and its performance characteristics determined by [facility]. It has not been cleared or approved by the U.S. Food and Drug Administration. The FDA has determined that such clearance or approval is not necessary. This test is used for clinical purposes. It should not be regarded as investigational or for research. [facility] is certified under the Clinical Laboratory Improvement Amendments of 1988 (CLIA) as qualified to perform high complexity clinical laboratory testing. PATIENT NAME: GRISEL WARNER PATHOLOGY DATE OF : 45 REPORT #: [id number] PHYSICIAN: DIANNE LUEVANO PCP: TAWNY ETIENNE MD REPORT IS CONFIDENTIAL AND NOT TO BE RELEASED WITHOUT AUTHORIZATION [address] [place] [address] Signed PERFORMING LABORATORY: Technical component was performed by [facility], [address] [place] [address] (CLIA# [id number]). Professional interpretation was performed by [facility], [address] [place] [address] (CLIA#: [id number]). Diagnostician: Brian Blood MD Pathologist Electronically Signed 12/02/2023 Copies: ~ PATIENT NAME: GRISEL WARNER PATHOLOGY DATE OF : 45 REPORT #: [id number] PHYSICIAN: DIANNE LUEVANO PCP: TAWNY ETIENNE MD REPORT IS CONFIDENTIAL AND NOT TO BE RELEASED WITHOUT AUTHORIZATION
--- NOTE | 2023-12-08 12:27 | OR ---
[facility] [address] [place], [place] [address] Signed DATE OF OPERATION: 11/30/2023 SURGEON: Baron Aldana MD PREOPERATIVE DIAGNOSES: History of rectal bleeding and inflammatory changes, left colon. POSTOPERATIVE DIAGNOSES: 1. Extensive internal hemorrhoids. 2. Profound diverticular disease with fibrosis and angulation deformities. PROCEDURE: Colonoscopy beyond splenic flexure with excision of small hyperplastic polyp of rectosigmoid (incomplete colonoscopy to cecum otherwise). ANESTHESIA: Intravenous sedation; fentanyl 200 mcg and Versed 6 mg. INDICATION: This 78-year-old white woman is a patient of Dr. Koehler. She is referred for colonoscopy. She was seen on September 15, 2023 with rectal bleeding, evaluated in the emergency room including a CT scan of the abdomen and pelvis September 15, 2023 showing wall thickening and edema of the left colon and mild pericolonic fat stranding involving the mid to distal transverse and descending colon and proximal sigmoid, consistent with inflammatory ischemic colitis. She was not admitted at that time. She has had episodic red blood per rectum, which is painless. She is admitted at this time to undergo colonoscopy to better characterize these findings from August. She understands the risk of bleeding, infection, and perforation and wished to proceed. FINDINGS: The prep was good. She had profound diverticular change of the sigmoid and left colon. Completion of colonoscopy was not possible despite efforts to do so including two separate colonoscopes and even an upper endoscope but inability to pass much beyond the left transverse colon despite great efforts and time. She did have hyperplastic polyp of the rectosigmoid and she had internal hemorrhoids which most likely accounted for her bleeding. Whether she has had ischemic colitis now with fibrosis or this represents sequela from diverticular disease is uncertain. DESCRIPTION OF PROCEDURE: The patient was brought to the endoscopy suite and placed in the lateral decubitus Electronically Signed By: BARON ALDANA MD 12/05/23 1427 PATIENT NAME: GRISEL WARNER OPERATIVE REPORT DATE OF : 45 REPORT #: [id number] PHYSICIAN: BARON ALDANA MD PCP: TAWNY KOEHLER MD REPORT IS CONFIDENTIAL AND NOT TO BE RELEASED WITHOUT AUTHORIZATION [facility] [address] [place], [place] [address] Signed position, given intravenous sedation to the point of slurred speech and nystagmus. Full cardiopulmonary monitoring was maintained. Digital rectal examination was performed, which was normal. An Olympus video colonoscope was passed in the rectum and manipulated into the rectosigmoid. Immediately noted were profound diverticular changes with angulation deformity. With all due care and caution, the scope was manipulated through this area in each subsegment identifying fibrotic changes. The texture of the colon could be appreciated through the scope itself and fibrotic changes were absolutely present. progress beyond the mid descending colon was not forthcoming, the scope was carefully withdrawn and a small polyp of the rectosigmoid was identified. This was excised with cold morcellation technique. A different colonoscope was obtained on the possibility that the colonoscope itself may have been inadequate. With similar technique, the scope was advanced up to the sigmoid and left colon and yet due to fibrotic changes, angulation deformity and so forth could not be safely passed beyond there well. On those findings, consideration was made steep angulation deformity would be best accomplished by upper endoscope . This was manipulated through the same areas, each time with some amount of difficulty given the fibrotic nature of the colon and advanced ultimately beyond I believe the splenic flexure, but beyond that, not able to. Further attempts at passage of the scope would likely result in complication and therefore the scope was withdrawn and examination undertaken more fully. There was no sign of actual colitis. No ulcerative changes, only diverticulosis and fibrotic changes. Scope was removed and the patient was taken to the recovery room in good condition. CONCLUDING DIAGNOSES: 1. Internal hemorrhoids, probably accounting for bleeding. 2. Diverticulosis with angulation deformity and fibrosis which may be coincidental to possibly ischemic colitis sequela (fibrosis, etc.). 3. Hyperplastic polyp of rectum. PLAN: Further rectal bleeding should be managed by hemorrhoidal banding, which should be straightforward. Whether to perform a Cologuard test versus a contrast study will be reviewed with the patient. In general, contrast barium enema would probably be the most advisable under the current guidelines for Cologuard testing. aBron Aldana MD JM/ASHER Electronically Signed By: BARON ALDANA MD 12/05/23 1427 PATIENT NAME: GRISEL WARNER OPERATIVE REPORT DATE OF : 45 REPORT #: [id number] PHYSICIAN: BARON ALDANA MD PCP: TAWNY KOEHLER MD REPORT IS CONFIDENTIAL AND NOT TO BE RELEASED WITHOUT AUTHORIZATION [address] [address] Signed /[id number] cc: Dr. Koehler Copies: ~ Electronically Signed By: BARON ALDANA MD 12/05/23 1427 PATIENT NAME: GRISEL WARNER OPERATIVE REPORT DATE OF : 45 REPORT #: [id number] PHYSICIAN: BARON ALDANA MD PCP: TAWNY KOEHLER MD REPORT IS CONFIDENTIAL AND NOT TO BE RELEASED WITHOUT AUTHORIZATION
== END 2023-11-30 14:10 | disposition home or self-care (01) ==
LOC: OPS 10:53 → DS 10:53 → OPS 12:00 → DS 12:00 → OPS 14:00
PROVIDERS: ATTEND Surgery
PROC: 0DBN8ZZ Excision of Sigmoid Colon, Via Natural or Artificial Opening Endoscopic (ICD-10-PCS; principal; 2023-11-30 14:00)
DX: K62.1 Rectal polyp (principal); K57.30 Diverticulosis of large intestine without perforation or abscess without bleeding; K64.8 Other hemorrhoids; K63.89 Other specified diseases of intestine; K55.9 Vascular disorder of intestine, unspecified; I10 Essential (primary) hypertension; Z79.82 Long term (current) use of aspirin; Z79.890 Hormone replacement therapy; Z79.84 Long term (current) use of oral hypoglycemic drugs; Z79.83 Long term (current) use of bisphosphonates; Z79.899 Other long term (current) drug therapy; Z88.0 Allergy status to penicillin
CPT/HCPCS: 88305; 99153; G0500; J0690; J2250; J3010; J7121

== ENCOUNTER 2024-04-06 09:16 | Emergency (ER) | payer MEDICARE, OTHER ==
[~2024-04-06] VITALS: Ht 166.4 cm; Wt 69.9 kg
[~2024-04-06 09:16] MED LIST changes: -CEFAZOLIN SODIUM 2 GM/20 ML SYR IV SCH; -IBLOOD GLUCOSE TEST STRIP 1 EA TEST VI PRN; -LACTATED RINGER'S 1,000 ML IV SCH; -LIDOCAINE HCL 1% 5 ML SDV INJ ONE; +LISINOPRIL40 MG PO; -MIDAZOLAM HCL 5 MG/5 ML VIAL IV PRN; -fentaNYL citrate 100 MCG/2 ML VIAL IV PRN
--- OUTSIDE RECORDS SUMMARY | 2024-04-06 09:21 | XMS ---
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 TOTAL 4 NOTE: Visits indicate total known visits. ED/UCC VISIT TRACKING (12 MO.) 04/06/2024 09:16 [facility] [place] TYPE: Emergency COMPLAINT: - LT ARM LACERATION 11/17/2023 14:09 [facility] [place] TYPE: Emergency COMPLAINT: - DIARRHEA DIAGNOSES: - Acquired absence of other specified parts of digestive tract - Allergy status to other drugs, medicaments and biological substances - Allergy status to penicillin - Essential (primary) hypertension - Hormone replacement therapy - Hypothyroidism, unspecified - Left lower quadrant pain - oysterman (current) use of antibiotics - oysterman (current) use of aspirin - detention (current) use of oral hypoglycemic drugs - Long-term (current) use of injectable non-insulin antidiabetic drugs - Noninfective gastroenteritis and colitis, unspecified - Other adjunct faculty for medical terminology (current) drug therapy - Personal history of nicotine dependence - Pure hypercholesterolemia, unspecified - Type 2 diabetes mellitus without complications - Unspecified asthma, uncomplicated 09/25/2023 16:24 [facility] [place] TYPE: Emergency COMPLAINT: - LACERATION DIAGNOSES: - Allergy status to other drugs, medicaments and biological substances - Allergy status to penicillin - Contact with knife, initial encounter - Essential (primary) hypertension - Hormone replacement therapy - Hypothyroidism, unspecified - Laceration without foreign body of left index finger without damage to nail, initial encounter - detention (current) use of aspirin - oysterman (current) use of oral hypoglycemic drugs - Other adjunct faculty for medical terminology (current) drug therapy - Personal history of nicotine dependence - Pure hypercholesterolemia, unspecified - Type 2 diabetes mellitus without complications - Unspecified asthma, uncomplicated 09/15/2023 19:43 [facility] [place] TYPE: Emergency COMPLAINT: - BLOOD IN STOOL DIAGNOSES: - Allergy status to other drugs, medicaments and biological substances - Allergy status to penicillin - Essential (primary) hypertension - Hemorrhage of anus and rectum - Hormone replacement therapy - Hypothyroidism, unspecified - oysterman (current) use of insulin - Noninfective gastroenteritis and colitis, unspecified - Personal history of nicotine dependence - Type 2 diabetes mellitus without complications INPATIENT VISIT TRACKING (12 MO.) No inpatient visits to display in this time frame [id number]
[2024-04-06 10:23] VITALS: BP 150/56
== END 2024-04-06 10:23 | disposition home or self-care (01) ==
LOC: ED 09:16
DX: S51.812A Laceration without foreign body of left forearm, initial encounter (principal); E03.9 Hypothyroidism, unspecified; J45.909 Unspecified asthma, uncomplicated; I10 Essential (primary) hypertension; E78.00 Pure hypercholesterolemia, unspecified; E11.9 Type 2 diabetes mellitus without complications; Z87.891 Personal history of nicotine dependence; Z88.0 Allergy status to penicillin; Z88.8 Allergy status to other drugs, medicaments and biological substances; Z79.890 Hormone replacement therapy; Z79.82 Long term (current) use of aspirin; Z79.84 Long term (current) use of oral hypoglycemic drugs; Z79.83 Long term (current) use of bisphosphonates; Z79.899 Other long term (current) drug therapy; Z91.81 History of falling; W06.XXXA Fall from bed, initial encounter
CPT/HCPCS: 73090; 99283

== ENCOUNTER 2024-09-21 08:56 | Emergency (ER) | payer OTHER, MEDICARE ==
[~2024-09-21] VITALS: Ht 166.4 cm; Wt 59.1 kg
--- OUTSIDE RECORDS SUMMARY | 2024-09-21 09:03 | XMS ---
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 Current PHONE: Unknown Care Guidelines exist for the following facilities: Bashir Olivares ( 08/16/2018 ) [place] VISIT COUNT (12 MO.) [address] [facility] TOTAL 4 NOTE: Visits indicate total known visits. ED/UCC VISIT TRACKING (12 MO.) 09/21/2024 08:56 [facility] [place] TYPE: Emergency COMPLAINT: - RT KNEE INJURY 04/06/2024 09:16 [facility] [place] TYPE: Emergency COMPLAINT: - LT ARM LACERATION DIAGNOSES: - Allergy status to other drugs, medicaments and biological substances - Allergy status to penicillin - Essential (primary) hypertension - Fall from bed, initial encounter - History of falling - Hormone replacement therapy - Hypothyroidism, unspecified - Laceration without foreign body of left forearm, initial encounter - devulcanizer loader (current) use of aspirin - assisted (current) use of bisphosphonates - devulcanizer loader (current) use of oral hypoglycemic drugs - Other cloth dye range operator (current) drug therapy - Other specified soft tissue disorders - Personal history of nicotine dependence - Pure hypercholesterolemia, unspecified - Type 2 diabetes mellitus without complications - Unspecified asthma, uncomplicated 11/17/2023 14:09 [facility] [place] TYPE: Emergency COMPLAINT: - DIARRHEA DIAGNOSES: - Acquired absence of other specified parts of digestive tract - Allergy status to other drugs, medicaments and biological substances - Allergy status to penicillin - Essential (primary) hypertension - Hormone replacement therapy - Hypothyroidism, unspecified - Left lower quadrant pain - assisted (current) use of antibiotics - assisted (current) use of aspirin - assisted (current) use of oral hypoglycemic drugs - Long-term (current) use of injectable non-insulin antidiabetic drugs - Noninfective gastroenteritis and colitis, unspecified - Other fdc (current) drug therapy - Personal history of [...] without damage to nail, initial encounter - devulcanizer loader (current) use of aspirin - assisted (current) use of oral hypoglycemic drugs - Other fdc (current) drug therapy - Personal history of nicotine dependence - Pure hypercholesterolemia, unspecified - Type 2 diabetes mellitus without complications - Unspecified asthma, uncomplicated INPATIENT VISIT TRACKING (12 MO.) No inpatient visits to display in this time frame [id number]
[2024-09-21] MEDS ORDERED: HYDROCHLOROTH12.5 MG PO (09:23)
[2024-09-21] MEDS ORDERED: ALENDRONATE SOD70 MG PO (09:24)
[2024-09-21 10:07] VITALS: BP 128/104
== END 2024-09-21 10:08 | disposition home or self-care (01) ==
LOC: ED 08:56
DX: S83.91XA Sprain of unspecified site of right knee, initial encounter (principal); J45.909 Unspecified asthma, uncomplicated; E11.9 Type 2 diabetes mellitus without complications; I10 Essential (primary) hypertension; Z87.891 Personal history of nicotine dependence; Z88.0 Allergy status to penicillin; Z88.8 Allergy status to other drugs, medicaments and biological substances; Z79.899 Other long term (current) drug therapy; Z79.82 Long term (current) use of aspirin; X50.1XXA Overexertion from prolonged static or awkward postures, initial encounter
CPT/HCPCS: 73560; 99283-25

== ENCOUNTER 2024-11-04 13:35 | Emergency (ER) | payer MEDICARE, OTHER ==
[~2024-11-04] VITALS: Ht 166.4 cm; Wt 53.8 kg
[~2024-11-04 13:35] MED LIST changes: +ALENDRONATE SOD70 MG PO
--- OUTSIDE RECORDS SUMMARY | 2024-11-04 13:43 | XMS ---
PreManage Notification: GRISEL WARNER Security Body Straightener Events No recent Security Events currently on file CRITERIA MET - Group Notification CARE PROVIDERS SALO CARVAJAL Internal Medicine 10/18/2017-Current PHONE: [phone] TAWNY ETIENNE [facility] Current PHONE: Unknown Care Guidelines exist for the following facilities: Bashir Olivares ( 08/16/2018 ) [place] VISIT COUNT (12 MO.) [address] [facility] TOTAL 4 NOTE: Visits indicate total known visits. ED/UCC VISIT TRACKING (12 MO.) 11/04/2024 13:36 [facility] [place] TYPE: Emergency COMPLAINT: - LOSS OF CONSCIOUSNESS 09/21/2024 08:56 [facility] [place] TYPE: Emergency COMPLAINT: - RT KNEE INJURY DIAGNOSES: - Allergy status to other drugs, medicaments and biological substances - Allergy status to penicillin - Essential (primary) hypertension - [facility] (current) use of aspirin - Other terminal operations supervisor (current) drug therapy - Overexertion from prolonged static or awkward postures, initial encounter - Pain in right knee - Personal history of nicotine dependence - Sprain of unspecified site of right knee, initial encounter - Type 2 diabetes mellitus without complications - Unspecified asthma, uncomplicated 04/06/2024 09:16 [facility] [place] TYPE: Emergency COMPLAINT: - LT ARM LACERATION DIAGNOSES: - Allergy status to other drugs, medicaments and biological substances - Allergy status to penicillin - Essential (primary) hypertension - Fall from bed, initial encounter - History of falling - Hormone replacement therapy - Hypothyroidism, unspecified - Laceration without foreign body of left forearm, initial encounter - [facility] (current) use of aspirin - [facility] (current) use of bisphosphonates - termination clerk (current) use of oral hypoglycemic drugs - Other terminal operations supervisor (current) drug therapy - Other specified soft [...] unspecified - Left lower quadrant pain - termination clerk (current) use of antibiotics - termination clerk (current) use of aspirin - termination clerk (current) use of oral hypoglycemic drugs - Long-term (current) use of injectable non-insulin antidiabetic drugs - Noninfective gastroenteritis and colitis, unspecified - Other terminal operations supervisor (current) drug therapy - Personal history of nicotine dependence - Pure hypercholesterolemia, unspecified - Type 2 diabetes mellitus without complications - Unspecified asthma, uncomplicated INPATIENT VISIT TRACKING (12 MO.) No inpatient visits to display in this time frame [id number]
[2024-11-04 14:40] LABS: BASOPHILS 0.6 % (0.1-1.2); EOSINOPHILS 0.8 % (0.7-5.8); LYMPHOCYTES 10.4 % (19.3-51.7); MCH 26.3 PG (25.6-32.2); MCHC 32.9 g/dL (32.2-35.5); MCV 80.0 fL (79.4-94.8); MONOCYTES 7.6 % (4.7-12.5); NEUTROPHILS 80.0 % (34.0-71.1); RBC 5.21 M/uL (3.93-5.22)
[2024-11-04 15:01] LABS: ALT (SGPT) 18.0 U/L (14-59); AST (SGOT) 19.0 U/L (15-37); GLOMERULAR FILTRATION RATE,EST 43.0 mL/min (>60); PROTEIN, TOTAL 6.7 g/dL (6.4-8.2); UREA NITROGEN 20.0 mg/dL (7-18)
[2024-11-04] MEDS ORDERED: POTASSIUM CHLORIDE 10 MEQ/100 ML BAG IV SCH (17:00)
[2024-11-04] MEDS ORDERED: SODIUM CHLORIDE 0.9% 500 ML IV PRN (17:00)
[2024-11-04] MEDS ORDERED: POTASSIUM CHLORIDE 10 MEQ TABCR PO ONE ×2 (17:00→18:45)
[2024-11-04] MEDS ORDERED: CIPRO500 MG PO (18:45)
[2024-11-04] MEDS ORDERED: ONDANSETRON 4 MG HOME.PACK SL ONE (18:45)
[2024-11-04] MEDS ORDERED: CIPROFLOXACIN 500 MG TAB PO ONE (18:45)
[2024-11-04 19:05] VITALS: BP 129/58
--- NOTE | 2024-11-05 14:17 | EKG ---
[facility] [address] [facility] [place] [address] Signed Normal sinus rhythm Left ventricular hypertrophy with repolarization abnormality ( R in aVL , Sokolow-Greene , Eaton product , Romhilt-Rodriguez ) Abnormal ECG When compared with ECG of 02-JUL-2022 15:54, No significant change was found Confirmed by Prashanth Dixno DO ([id number]) on 11/05/2024 2:17:39 PM Electronically Signed By: PRASHANTH DIXON DO 11/05/24 1417 PATIENT NAME: GRISEL WARNER Electrocardiogram DATE OF : 45 PHYSICIAN: PRASHANTH DIXON DO REPORT #: [id number] REPORT IS CONFIDENTIAL AND NOT TO BE RELEASED WITHOUT AUTHORIZATION
== END 2024-11-04 19:02 | disposition home or self-care (01) ==
LOC: ED 13:35
PROVIDERS: Emergency Medicine
DX: K52.9 Noninfective gastroenteritis and colitis, unspecified (principal); I10 Essential (primary) hypertension; E11.9 Type 2 diabetes mellitus without complications; E03.9 Hypothyroidism, unspecified; Z87.891 Personal history of nicotine dependence; Z88.0 Allergy status to penicillin; Z88.8 Allergy status to other drugs, medicaments and biological substances; Z79.899 Other long term (current) drug therapy; Z79.890 Hormone replacement therapy
CPT/HCPCS: 36415; 74177; 80053; 83735; 84484; 85025; 93005; 93010; 96374; 99284-25; A9270; J3480; J7040; Q9967

== ENCOUNTER 2024-12-17 04:35 | Emergency (ER) | payer OTHER, MEDICARE ==
[~2024-12-17] VITALS: Ht 166.4 cm; Wt 55.6 kg
--- OUTSIDE RECORDS SUMMARY | 2024-12-17 04:42 | XMS ---
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 TOTAL 4 NOTE: Visits indicate total known visits. ED/UCC VISIT TRACKING (12 MO.) 12/17/2024 04:36 [facility] TYPE: Emergency COMPLAINT: - FALL 11/04/2024 13:36 [facility] [place] TYPE: Emergency COMPLAINT: - LOSS OF CONSCIOUSNESS DIAGNOSES: - Allergy status to other drugs, medicaments and biological substances - Allergy status to penicillin - Essential (primary) hypertension - Hormone replacement therapy - Hypothyroidism, unspecified - Noninfective gastroenteritis and colitis, unspecified - Other [employer] (current) drug therapy - Personal history of nicotine dependence - Syncope and collapse - Type 2 diabetes mellitus without complications 09/21/2024 08:56 [facility] [place] TYPE: Emergency COMPLAINT: - RT KNEE INJURY DIAGNOSES: - Allergy status to other drugs, medicaments and biological substances - Allergy status to penicillin - Essential (primary) hypertension - technician terminal and repeater (current) use of aspirin - Other jail (current) drug therapy - Overexertion from prolonged [...] body of left forearm, initial encounter - technician terminal and repeater (current) use of aspirin - technician terminal and repeater (current) use of bisphosphonates - technician terminal and repeater (current) use of oral hypoglycemic drugs - Other [employer] (current) drug therapy - Other specified soft tissue disorders - Personal history of nicotine dependence - Pure hypercholesterolemia, unspecified - Type 2 diabetes mellitus without complications - Unspecified asthma, uncomplicated INPATIENT VISIT TRACKING (12 MO.) No inpatient visits to display in this time frame [email or web address]
[2024-12-17] MEDS ORDERED: OMEPRAZOLE20 MG PO (04:47)
[2024-12-17] MEDS ORDERED: TETRACYCLINE H500 MG PO (04:47)
[2024-12-17] MEDS ORDERED: ONDANSETRON ODT8 MG PO (04:47)
[2024-12-17 06:11] VITALS: BP 164/78
[2024-12-17] MEDS ORDERED: HYDROCODONE BIT/ACETAMINOPHEN 5/325 MG 1 TAB HOME.PACK PO PRN (06:15)
== END 2024-12-17 06:12 | disposition home or self-care (01) ==
LOC: ED 04:35
DX: S00.83XA Contusion of other part of head, initial encounter (principal); S40.012A Contusion of left shoulder, initial encounter; S80.01XA Contusion of right knee, initial encounter; J45.909 Unspecified asthma, uncomplicated; E11.9 Type 2 diabetes mellitus without complications; Z87.891 Personal history of nicotine dependence; Z88.0 Allergy status to penicillin; Z88.8 Allergy status to other drugs, medicaments and biological substances; Z79.899 Other long term (current) drug therapy; W18.30XA Fall on same level, unspecified, initial encounter
CPT/HCPCS: 70450; 72125; 73030; 73560; 99284-25; A9270